=== PATIENT | female | born 1940 | race Caucasian/White ===

== ENCOUNTER 2021-10-16 12:48 | Inpatient (IN) ==
[2021-10-16 13:23] LABS: POC Calcium, Ionized 1.13 (1.16-1.32); POC Creatinine 1.7 (0.6-1.2); POC Potassium 4.4 (3.3-5.1)
--- NOTE | 2021-10-16 13:25 | Emergency Department Note ---
SOB HPI General Chief Complaint: Shortness of Breath/Dyspnea Stated Complaint: Shortness of Breath Time Seen by Provider: 10/16/21 13:01 Source: patient Mode of arrival: wheelchair Limitations: no limitations History of Present Illness HPI Narrative: Narrative: 81-year-old female presents to the emergency department complaining of right- sided well localized chest pain that began at noon today. She rates the pain as a 9 on a 0-to-10 scale. States that sharp. No prior similar. She says the pain has been getting a little better with time. Is associated with shortness of breath. There is no radiation of the pain. Patient has pulmonary fibrosis. She is not taking any oxygen at home. Patient has atrial fibrillation. Patient is on Eliquis for that. Patient was started on a Z-Jose of antibiotics yesterday. Patient was started on azithromycin yesterday. Related Data Home Medications Medication Instructions Recorded Confirmed aspirin 81 mg tablet,delayed 81 mg PO QDAY 01/13/19 09/24/21 release (Adult Aspirin Regimen) Previous Rx's Medication Instructions Recorded tiotropium 2.5 mcg-olodaterol 2.5 2 puff INHALATION Q24H #4 g 10/28/20 mcg/actuation mist for inhalation (Stiolto Respimat) montelukast 10 mg tablet See Rx Instructions .ROUTE 02/06/21 .COMPLEX #90 tablet liothyronine 5 mcg tablet See Rx Instructions .ROUTE 03/18/21 .COMPLEX #120 tab NS Handicap Placard #1 ea 04/18/21 olmesartan 40 mg tablet 40 mg PO QDAY #90 tab 07/22/21 levothyroxine 150 mcg tablet 150 mcg PO QDAY #90 tab 07/24/21 (Synthroid) albuterol sulfate 90 mcg/actuation 2 puff INHALATION QID #18 g 09/18/21 aerosol inhaler (Ventolin HFA) apixaban 5 mg tablet (Eliquis) 5 mg PO BID #60 tab 09/24/21 furosemide 20 mg tablet 40 mg PO QDAY #90 tab 09/24/21 metoprolol succinate 25 mg 12.5 mg PO .Q HS #30 tab 09/24/21 tablet,extended release 24 hr azithromycin 250 mg tablet See Rx Instructions PO .COMPLEX #6 10/15/21 (Zithromax) tab Allergies Allergy/AdvReac Type Severity Reaction Status Date / Time meperidine [From Demerol] AdvReac Severe Vomiting Verified 09/24/21 14:42 codeine AdvReac Intermediate Confusion Verified 09/24/21 14:42 wool AdvReac Mild itch Verified 09/24/21 14:42 Review of Systems ROS ROS Narrative: Narrative: Constitutional: Denies fever Eyes: Denies eye discharge ENT ED: Denies throat pain or rhinorrhea Cardiovascular: Reports chest pain (Right-sided) Respiratory: Reports shortness of breath, cough and other (States she has bronchitis. Patient has pulmonary fibrosis.) Gastrointestinal: Denies nausea, vomiting or diarrhea Genitourinary: Denies dysuria Musculoskeletal: Denies back pain Integumentary: Denies rash Neurological: Denies headache Psychiatric: Denies anxiety or depression Hematological/Lymphatic: Denies easy bleeding PFSH Narrative Patient History Narrative: Narrative: Medical/Surgical/Family History All Active Problems (Updated 10/16/21 @ 17:18 by Maurice Mendes MD) Acute congestive heart failure (Acute) Acute pneumonia (Acute) CHF (congestive heart failure) (Acute) Afib (Acute) Dyspnea (Acute) GREGORY (obstructive sleep apnea) (Chronic) Pulmonary fibrosis (Chronic) Acute bronchitis (Chronic) Deep vein thrombosis of lower extremity (Chronic) Asymptomatic hypertensive urgency (Acute) Fever (Acute) Obesity (BMI 30.0-34.9) (Chronic) Hypothyroidism, acquired (Chronic) Asthma, mild intermittent (Chronic) Hypertension, essential (Chronic) Sinusitis (Chronic) Mild congestive heart failure (Chronic) Insulin resistance syndrome (Chronic) Snoring (Chronic) Chronic rhinitis (Chronic) Secondary pulmonary arterial hypertension (Chronic) Abnormal pulmonary function test (Chronic) Asthma (Chronic) Left ventricular hypertrophy (Chronic) Secondary pulmonary hypertension (Chronic) Hyperplastic colonic polyp (Chronic) Bilateral primary osteoarthritis of knee (Chronic) Bilateral knee pain (Acute) History of varicose veins (Chronic) History of deep venous thrombosis (Chronic) Decreased circulation (Chronic) Multiple joint pain (Chronic) Chronic pulmonary congestion (Chronic) CHF (congestive heart failure) (Chronic) Encounter for long-term (current) use of medications (Chronic) Hyperlipidemia (Chronic) Skin rash (Chronic) Skin lesion (Chronic) Allergic rhinitis (Chronic) Stress (Chronic) Hypothyroidism (Chronic) Anxiety and depression (Chronic) Special screening for malignant neoplasms, colon (Chronic) Weight gain (Chronic) Multiple nevi (Chronic) Left shoulder pain (Chronic) Fatigue (Chronic) Screening for malignant neoplasm of cervix (Chronic) Bone spur (Chronic) Keratosis (Chronic) History of bronchitis (Chronic ~2017) Deep vein thrombosis (DVT) of right lower extremity (Chronic ~05/2017) Interstitial lung disease (Acute) Insomnia, unspecified (Acute) Right lower quadrant pain (Acute) Hypertension, essential (Acute) Constipation (Acute) Stress (Acute) Hyperlipidemia (Acute) Lumbar radiculopathy (Acute) Stage III chronic kidney disease (Acute) Skin mole (Acute) Hypersomnia (Chronic) Nocturnal hypoxia (Chronic) Elevated antinuclear antibody (KOTA) level (Acute) Fluid retention (Acute) Medical History Abnormal pulmonary function test Acute bronchitis Allergic rhinitis Anxiety and depression Asthma Asthma, mild intermittent Bilateral knee pain Bilateral primary osteoarthritis of knee Bone spur CHF (congestive heart failure) Chronic pulmonary congestion Chronic rhinitis Decreased circulation Deep vein thrombosis (DVT) of right lower extremity (~05/2017) Deep vein thrombosis of lower extremity Elevated antinuclear antibody (KOTA) level Encounter for long-term (current) use of medications Fatigue History of bronchitis (~2017) History of deep venous thrombosis History of varicose veins Hyperlipidemia Hyperplastic colonic polyp Hypersomnia Hypertension, essential Hypothyroidism Hypothyroidism, acquired Insulin resistance syndrome Interstitial lung disease Keratosis Left shoulder pain Left ventricular hypertrophy Mild congestive heart failure Multiple joint pain Multiple nevi Nocturnal hypoxia Obesity (BMI 30.0-34.9) GREGORY (obstructive sleep apnea) Screening for malignant neoplasm of cervix Secondary pulmonary arterial hypertension Secondary pulmonary hypertension Sinusitis Skin lesion Skin rash Snoring Special screening for malignant neoplasms, colon Stress Weight gain Surgical History History of colonoscopy (03/31/18) performed by Dr. Frye History of skin cancer (~07/2013) on face History of tonsillectomy Family History Mother , Age 86 Liver cancer Daughter Asthma Unknown Hypertension Father , Age 95 No problems noted. Social History Smoking Status: Former smoker Substance Use: does not use Exam Narrative Narrative: Narrative: Patient with pulse ox of 80 on room air. On 4 L she goes to 94%. Scattered rhonchi throughout the lungs compatible with pulmonary fibrosis or other disease. General Limitations: no limitations General appearance: Present alert and in distress Head Head: Present atraumatic and normocephalic Eye Eye: Present normal appearance and EOMI ENT ENT: Present normal oropharynx and mucous membranes moist Neck Neck: Present normal inspection and trachea midline Respiratory Respiratory: Present normal lung sounds bilaterally and respiratory distress; Absent wheezes Cardiovascular Cardiovascular: Present regular rate and normal rhythm Adbominal Abdominal: Present soft; Absent tenderness Extremities Extremities: Present normal inspection Back Back: Present normal inspection; Absent tenderness Neurological Neurological: Present alert and oriented X3 Psychiatric Psychiatric: Present normal affect and normal mood Skin Skin: Present warm (WNL) and dry Course Vital Signs Vital signs: Vital Signs Temperature 97.2 F 10/16/21 12:48 Pulse Rate 122 H 10/16/21 12:48 Respiratory Rate 26 H 10/16/21 12:48 Blood Pressure 109/70 10/16/21 12:48 Pulse Oximetry (%) 83 L 10/16/21 12:48 Temperature 97.2 F 10/16/21 12:48 Pulse Rate 92 H 10/16/21 16:57 Respiratory Rate 22 10/16/21 16:57 Blood Pressure 104/66 10/16/21 16:16 Pulse Oximetry (%) 94 10/16/21 16:57 [facility] MDM Narrative Medical decision making narrative: Narrative: 81-year-old female presents emerged department with a right-sided chest pain. Also complains of having bronchitis and was started on azithromycin yesterday for for that. Has underlying pulmonary fibrosis. Differential diagnosis includes pneumonia, congestive heart failure, pleurisy, bronchitis, influenza, COVID, other COVID test was negative.White count was elevated 18.5 with 90 neutrophils and 4 lymphs. Hemoglobin was normal at 12.9. VBG was unremarkable. Sodium was mildly low at 132 with a normal potassium 4.4 normal chloride of 97 and a normal bicarb of 26. BUN was elevated at 40 with a elevated creatinine of 1.7. Both these numbers were elevated from 4 weeks ago. Glucose was elevated at 135 and the BNP was markedly elevated at 1771. chest x-ray: IMPRESSION: 1. Cardiomegaly 2. Bilateral parenchymal infiltrates. Appearance is most consistent with congestive heart failure superimposed upon chronic underlying lung disease Department course patient was given Lasix 40 mg IV to treat her congestive heart failure as seen on chest x-ray and confirm with BNP. Patient had significant urinary output after this. Chest x-ray is also suspicious for possible pneumonia. Patient has a high white count of 18,000 and therefore I gave her ceftriaxone 1 g IV. I also give the patient 500 mg of azithromycin though I did not need to since she was already on azithromycin. The drug was already administered by the time I realize this. Today would be day 2 of azithromycin. Patient was taken off the oxygen to see how she would do and her pulse ox dropped down to 80% on room air. She was placed back on oxygen and will need to be admitted to the hospital for further care. Dr. Palma and I discussed the case. He will come to the ER to evaluate patient for admission. Lab Data Result diagrams: 10/16/21 13:25 Labs: Lab Results 10/16/21 10/16/21 10/16/21 Range/Units 13:19 13:20 13:25 WBC 18.5 H (4.5-11.0) K/mcL RBC 4.01 (3.59-5.38) M/mcL Hgb 12.9 (11.2-15.7) g/dL Hct 39.9 (34.1-44.9) % POC Hct 40.0 (36-48) MCV 99.5 (80.0-100.0) fL MCH 32.2 (26.0-34.0) pg MCHC 32.3 (31.0-36.0) g/dL RDW 14.2 (11.5-14.5) % Plt Count 206 (140-440) K/mcL MPV 10.7 H (7.4-10.4) fL Neut % (Auto) 89.7 H (38.0-78.0) % Lymph % (Auto) 3.7 L (15.5-49.0) % Trego % (Auto) 6.3 (1.0-12.0) % Eos % (Auto) 0.1 (0.0-7.0) % Baso % (Auto) 0.2 (0.0-2.0) % Lymph # (Auto) 0.69 L (1.50-4.80) K/mcL Trego # (Auto) 1.16 H (0.10-0.90) K/mcL Eos # (Auto) 0.02 (0.00-0.70) K/mcL Baso # (Auto) 0.04 (0.00-0.30) K/mcL Absolute Neutrophils 16.56 H (1.80-8.00) K/mcL POC VBG pH 7.41 (7.32-7.42) POC VBG pCO2 at Temp 41.7 (41-51) POC VBG pO2 35 (25-40) POC VBG HCO3 26.3 (24-28) POC VBG Total CO2 28.0 (25-29) POC Venous O2 Sat 67.0 (40-70) POC VBG Base Excess 2.0 (-2-2) POC Sodium 132 L (133-145) POC Potassium 4.4 (3.3-5.1) POC Chloride 97 (96-108) POC Total CO2 26.0 (22-30) POC BUN 40 H (6-20) POC Creatinine 1.7 H (0.6-1.2) POC Glucose 135 H (70-105) POC Venous Lactate 1.7 (0.5-2) POC WB Ioniz Calcium 1.13 L (1.16-1.32) Troponin T (<0.03) ng/mL NT-Pro-B Natriuret Pep (<450.0) pg/mL 10/16/21 10/16/21 Range/Units 13:25 13:25 WBC (4.5-11.0) K/mcL RBC (3.59-5.38) M/mcL Hgb (11.2-15.7) g/dL Hct (34.1-44.9) % POC Hct (36-48) MCV (80.0-100.0) fL MCH (26.0-34.0) pg MCHC (31.0-36.0) g/dL RDW (11.5-14.5) % Plt Count (140-440) K/mcL MPV (7.4-10.4) fL Neut % (Auto) (38.0-78.0) % Lymph % (Auto) (15.5-49.0) % Trego % (Auto) (1.0-12.0) % Eos % (Auto) (0.0-7.0) % Baso % (Auto) (0.0-2.0) % Lymph # (Auto) (1.50-4.80) K/mcL Trego # (Auto) (0.10-0.90) K/mcL Eos # (Auto) (0.00-0.70) K/mcL Baso # (Auto) (0.00-0.30) K/mcL Absolute Neutrophils (1.80-8.00) K/mcL POC VBG pH (7.32-7.42) POC VBG pCO2 at Temp (41-51) POC VBG pO2 (25-40) POC VBG HCO3 (24-28) POC VBG Total CO2 (25-29) POC Venous O2 Sat (40-70) POC VBG Base Excess (-2-2) POC Sodium (133-145) POC Potassium (3.3-5.1) POC Chloride (96-108) POC Total CO2 (22-30) POC BUN (6-20) POC Creatinine (0.6-1.2) POC Glucose (70-105) POC Venous Lactate (0.5-2) POC WB Ioniz Calcium (1.16-1.32) Troponin T < 0.01 (<0.03) ng/mL NT-Pro-B Natriuret Pep 1771.0 H (<450.0) pg/mL ED POC Tests ED POC Tests: BERTA - SARS Antigen Negative Discharge Plan Patient/Caregiver Discharge Instructions Pt seen by [employer]/PA only: No Clinical Impression: Acute pneumonia Acute congestive heart failure Qualifiers: Heart failure type: unspecified Qualified Code(s): I50.9 - Heart failure, unspecified Patient Disposition: Xfer As Inpt ([facility]) Condition: Serious Follow up with: Lissette Rivera ARNP [Primary Care Provider] - Prescriptions: No Action Stiolto Respimat 2.5-2.5 mcg/actuation mist 2 puff inhalation Q24H Qty: 4 6RF liothyronine 5 mcg tablet See Rx Instructions .ROUTE .COMPLEX Qty: 120 2RF Dose Instruction: TAKE 2 TABLETS BY MOUTH ON WEDNESDAY, WEDNESDAY AND WEDNESDAY AND 1 ONCE DAILY ON ALL OTHER DAYS Rx Instructions: TAKE 2 TABLETS BY MOUTH ON WEDNESDAY, WEDNESDAY AND WEDNESDAY AND 1 ONCE DAILY ON ALL OTHER DAYS levothyroxine [Synthroid] 150 mcg tablet 150 mcg PO QDAY Qty: 90 0RF albuterol sulfate [Ventolin HFA] 90 mcg/actuation HFA aerosol inhaler 2 puff INHALATION QID Qty: 18 6RF azithromycin [Zithromax] 250 mg tablet See Rx Instructions PO .COMPLEX Qty: 6 0RF Rx Instructions: For 250 mg dose pack: take 500 mg today (day 1), then 250 mg for 4 days (days 2-5) PO aspirin [Adult Aspirin Regimen] 81 mg tablet,delayed release (DR/EC) 81 mg PO QDAY 0RF (DME) Handicap Placard See Rx Instructions .Route .MEDSUPPLY Qty: 1 0RF Rx Instructions: Patient unable to walk more than 6 feet without significant difficulties breathing due to medical conditions. montelukast 10 mg tablet See Rx Instructions .ROUTE .COMPLEX Qty: 90 4RF Dose Instruction: Take 1 tablet by mouth once daily Rx Instructions: Take 1 tablet by mouth once daily olmesartan 40 mg tablet 40 mg PO QDAY Qty: 90 3RF Eliquis 5 mg tablet 5 mg PO BID Qty: 60 3RF furosemide 20 mg tablet 40 mg PO QDAY Qty: 90 4RF Rx Instructions: increase for a week. metoprolol succinate 25 mg tablet extended release 24 hr 12.5 mg PO .Q HS Qty: 30 1RF Eliquis 5 mg tablet 0RF
[2021-10-16] MEDS ORDERED: HYDROcodone/APAP 5/325MG TABLET PO ONE ×2 (14:22→14:35)
--- NOTE | 2021-10-16 14:31 | XRay Report ---
INDICATION: right sided pain. Pulm fibrosis TECHNIQUE: PA and lateral upright chest x-ray COMPARISON: Previous chest x-rays dated 09/24/2021, 09/16/2021. Previous CT scan dated 10/28/2020 FINDINGS: Lungs: The patient has a history of pulmonary fibrosis. There are bilateral infiltrates with bibasilar predominance. Findings are consistent with pulmonary edema superimposed upon underlying lung disease. Pneumonia is possible. Heart, vascular: There is cardiomegaly, unchanged Mediastinum, altagracia: No mediastinal widening. No hilar mass Pleura:No pleural fluid. No pleural-based mass or calcification Thoracic spine, ribs: No thoracic compression fracture. Ribs are negative. No fracture. No lytic lesion IMPRESSION: 1. Cardiomegaly 2. Bilateral parenchymal infiltrates. Appearance is most consistent with congestive heart failure superimposed upon chronic underlying lung disease Interpreted and Authenticated by: Aniceto Mahajan 10/16/21
[2021-10-16] MEDS ORDERED: FUROSEMIDE 40 MG/4 ML VIAL IV ONE (14:39)
[2021-10-16 15:06] LABS: Basophils # (Auto) 0.04 K/mcL (0.00-0.30); Basophils % (Auto) 0.2 % (0.0-2.0); Eosinophils # (Auto) 0.02 K/mcL (0.00-0.70); Eosinophils % (Auto) 0.1 % (0.0-7.0); Hematocrit 39.9 % (34.1-44.9); Hemoglobin 12.9 g/dL (11.2-15.7); Lymphocytes # (Auto) 0.69 K/mcL (1.50-4.80); Lymphocytes % (Auto) 3.7 % (15.5-49.0); Mean Cell Volume 99.5 fL (80.0-100.0); Mean Corpuscular HGB Conc 32.3 g/dL (31.0-36.0); Mean Platelet Volume 10.7 fL (7.4-10.4); Monocytes # (Auto) 1.16 K/mcL (0.10-0.90); Monocytes % (Auto) 6.3 % (1.0-12.0); Neutrophils % (Auto) 89.7 % (38.0-78.0); Platelet Count 206 K/mcL (140-440); RBC 4.01 M/mcL (3.59-5.38); Red Cell Distribution Width 14.2 % (11.5-14.5); WBC 18.5 K/mcL (4.5-11.0)
[2021-10-16] MEDS ORDERED: cefTRIAXone 1 GM VIAL IV ONE (15:46)
[2021-10-16] MEDS ORDERED: AZITHROMYCIN 500 MG in DEXTROSE 5% IN WATER 250 ML IV ONE (15:46)
--- NOTE | 2021-10-16 17:22 | Internal Med History&Physical ---
HPI History of Present Illness Patient information: Note initiated : 10/16/21 at 5:13 pm Service Date, if different from initiated Date: [] Patient: George Ma 81 y/o F admitted on for Shortness of Breath. Chief Complaint: [] History of present illness: Ms. Ma is a 81 year old F Presents the ED with shortness of breath. Patient says she has been dealing with bronchitis off and on for the past month. She says that she went to bed feeling fine and woke up today with a right side stabbing chest pain made worse by deep breathing and coughing. She says she gets a cough whenever she has a bronchitis but does not have a chronic cough. He says she has a cough productive of yellow phlegm. She has dyspnea on exertion. She says she sleeps in recliner because she wakes up often in her bed and she also said she does get short of breath when she lays in her bed but she says this has not changed lately. Rapid COVID was negative in the ED. Chest x-ray is read as suspect to be edema with possible underlying pneumonia. She did have a leukocytosis of 18,000, afebrile vital signs but was tachycardic and tachypneic. Oxygen saturation of 83% on room air. Labs included a hyponatremia and elevated BUN and creatinine. Her proBNP was also elevated at 1770. Last echo done in early 2020 showed normal EF with some diastolic dysfunction. Review of Systems: Pertinent positives as above. Denies headache/fever/chills/nausea/vomiting/ abdominal pain/diarrhea. Remaining 10 point review of system reviewed negative PFSH PFSH All Active Problems (Updated 10/16/21 @ 17:18 by Maurice Mendes MD) Acute congestive heart failure (Acute) Acute pneumonia (Acute) CHF (congestive heart failure) (Acute) Afib (Acute) Dyspnea (Acute) GREGORY (obstructive sleep apnea) (Chronic) Pulmonary fibrosis (Chronic) Acute bronchitis (Chronic) Deep vein thrombosis of lower extremity (Chronic) Asymptomatic hypertensive urgency (Acute) Fever (Acute) Obesity (BMI 30.0-34.9) (Chronic) Hypothyroidism, acquired (Chronic) Asthma, mild intermittent (Chronic) Hypertension, essential (Chronic) Sinusitis (Chronic) Mild congestive heart failure (Chronic) Insulin resistance syndrome (Chronic) Snoring (Chronic) Chronic rhinitis (Chronic) Secondary pulmonary arterial hypertension (Chronic) Abnormal pulmonary function test (Chronic) Asthma (Chronic) Left ventricular hypertrophy (Chronic) Secondary pulmonary hypertension (Chronic) Hyperplastic colonic polyp (Chronic) Bilateral primary osteoarthritis of knee (Chronic) Bilateral knee pain (Acute) History of varicose veins (Chronic) History of deep venous thrombosis (Chronic) Decreased circulation (Chronic) Multiple joint pain (Chronic) Chronic pulmonary congestion (Chronic) CHF (congestive heart failure) (Chronic) Encounter for long-term (current) use of medications (Chronic) Hyperlipidemia (Chronic) Skin rash (Chronic) Skin lesion (Chronic) Allergic rhinitis (Chronic) Stress (Chronic) Hypothyroidism (Chronic) Anxiety and depression (Chronic) Special screening for malignant neoplasms, colon (Chronic) Weight gain (Chronic) Multiple nevi (Chronic) Left shoulder pain (Chronic) Fatigue (Chronic) Screening for malignant neoplasm of cervix (Chronic) Bone spur (Chronic) Keratosis (Chronic) History of bronchitis (Chronic ~2017) Deep vein thrombosis (DVT) of right lower extremity (Chronic ~05/2017) Interstitial lung disease (Acute) Insomnia, unspecified (Acute) Right lower quadrant pain (Acute) Hypertension, essential (Acute) Constipation (Acute) Stress (Acute) Hyperlipidemia (Acute) Lumbar radiculopathy (Acute) Stage III chronic kidney disease (Acute) Skin mole (Acute) Hypersomnia (Chronic) Nocturnal hypoxia (Chronic) Elevated antinuclear antibody (KOTA) level (Acute) Fluid retention (Acute) Medical History Abnormal pulmonary function test Acute bronchitis Allergic rhinitis Anxiety and depression Asthma Asthma, mild intermittent Bilateral knee pain Bilateral primary osteoarthritis of knee Bone spur CHF (congestive heart failure) Chronic pulmonary congestion Chronic rhinitis Decreased circulation Deep vein thrombosis (DVT) of right lower extremity (~05/2017) Deep vein thrombosis of lower extremity Elevated antinuclear antibody (KOTA) level Encounter for long-term (current) use of medications Fatigue History of bronchitis (~2017) History of deep venous thrombosis History of varicose veins Hyperlipidemia Hyperplastic colonic polyp Hypersomnia Hypertension, essential Hypothyroidism Hypothyroidism, acquired Insulin resistance syndrome Interstitial lung disease Keratosis Left shoulder pain Left ventricular hypertrophy Mild congestive heart failure Multiple joint pain Multiple nevi Nocturnal hypoxia Obesity (BMI 30.0-34.9) GREGORY (obstructive sleep apnea) Screening for malignant neoplasm of cervix Secondary pulmonary arterial hypertension Secondary pulmonary hypertension Sinusitis Skin lesion Skin rash Snoring Special screening for malignant neoplasms, colon Stress Weight gain Surgical History History of colonoscopy (03/31/18) performed by Dr. Frye History of skin cancer (~07/2013) on face History of tonsillectomy Family History Mother , Age 86 Liver cancer Daughter Asthma Unknown Hypertension Father , Age 95 No problems noted. Social History occupational status: retired smoking status: Former smoker substance use type: does not use MEDS/ALLERGIES Home Medications and Allergies Home Medications Medication Instructions Recorded Confirmed Type aspirin 81 mg tablet,delayed 81 mg PO QDAY 01/13/19 09/24/21 History release (Adult Aspirin Regimen) tiotropium 2.5 mcg-olodaterol 2.5 2 puff INHALATION Q24H #4 g 10/28/20 09/24/21 Rx mcg/actuation mist for inhalation (Stiolto Respimat) montelukast 10 mg tablet See Rx Instructions .ROUTE 02/06/21 10/16/21 Rx .COMPLEX #90 tablet liothyronine 5 mcg tablet See Rx Instructions .ROUTE 03/18/21 09/24/21 Rx .COMPLEX #120 tab NS Handicap Placard #1 ea 04/18/21 09/24/21 Rx olmesartan 40 mg tablet 40 mg PO QDAY #90 tab 07/22/21 09/24/21 Rx levothyroxine 150 mcg tablet 150 mcg PO QDAY #90 tab 07/24/21 10/16/21 Rx (Synthroid) albuterol sulfate 90 mcg/actuation 2 puff INHALATION QID #18 g 09/18/21 10/16/21 Rx aerosol inhaler (Ventolin HFA) apixaban 5 mg tablet (Eliquis) 5 mg PO BID #60 tab 09/24/21 09/24/21 Rx furosemide 20 mg tablet 40 mg PO QDAY #90 tab 09/24/21 09/24/21 Rx metoprolol succinate 25 mg 12.5 mg PO .Q HS #30 tab 09/24/21 09/24/21 Rx tablet,extended release 24 hr azithromycin 250 mg tablet See Rx Instructions PO .COMPLEX #6 10/15/21 10/16/21 Rx (Zithromax) tab Allergies Allergy/AdvReac Type Severity Reaction Status Date / Time meperidine [From Demerol] AdvReac Severe Vomiting Verified 09/24/21 14:42 codeine AdvReac Intermediate Confusion Verified 09/24/21 14:42 wool AdvReac Mild itch Verified 09/24/21 14:42 EXAM Constitutional Vitals: Temp Pulse Resp BP Pulse Ox 97.2 F 92 H 22 104/66 94 10/16/21 12:48 10/16/21 16:57 10/16/21 16:57 10/16/21 16:16 10/16/21 16:57 Exam: General: Alert, Awake, No acute Distress obese Eyes/N/T: EOMI, PERRL, Head/Neck: neck supple, normocephalic atraumatic CV: irreg irreg, No murmurs, normal s1/s2 Pulm: mild rhonchi/wheezing b/l, Abd: soft, nontender, +BS x4 Ext: no clubbing/cyanosis, trace- 1+ b/l LE edema Neuro: Alert, no focal deficits, moves all extremities, CN 2-12 grossly intact, symmetrical strength b/l upper/lower, sensations intact b/l upper/lower Skin: warm/dry DATA Data Completed and Pending Labs: Labs from last 24 hours 10/16/21 10/16/21 10/16/21 13:25 13:25 13:25 WBC 18.5 H RBC 4.01 Hgb 12.9 Hct 39.9 POC Hct MCV 99.5 MCH 32.2 MCHC 32.3 RDW 14.2 Plt Count 206 MPV 10.7 H Neut % (Auto) 89.7 H Lymph % (Auto) 3.7 L [place] % (Auto) 6.3 Eos % (Auto) 0.1 Baso % (Auto) 0.2 Lymph # (Auto) 0.69 L [place] # (Auto) 1.16 H Eos # (Auto) 0.02 Baso # (Auto) 0.04 Absolute Neutrophils 16.56 H POC VBG pH POC VBG pCO2 at Temp POC VBG pO2 POC VBG HCO3 POC VBG Total CO2 POC Venous O2 Sat POC VBG Base Excess POC Sodium POC Potassium POC Chloride POC Total CO2 POC BUN POC Creatinine POC Glucose POC Venous Lactate POC WB Ioniz Calcium Troponin T < 0.01 NT-Pro-B Natriuret Pep 1771.0 H 10/16/21 10/16/21 13:20 13:19 WBC RBC Hgb Hct POC Hct 40.0 MCV MCH MCHC RDW Plt Count MPV Neut % (Auto) Lymph % (Auto) [place] % (Auto) Eos % (Auto) Baso % (Auto) Lymph # (Auto) [place] # (Auto) Eos # (Auto) Baso # (Auto) Absolute Neutrophils POC VBG pH 7.41 POC VBG pCO2 at Temp 41.7 POC VBG pO2 35 POC VBG HCO3 26.3 POC VBG Total CO2 28.0 POC Venous O2 Sat 67.0 POC VBG Base Excess 2.0 POC Sodium 132 L POC Potassium 4.4 POC Chloride 97 POC Total CO2 26.0 POC BUN 40 H POC Creatinine 1.7 H POC Glucose 135 H POC Venous Lactate 1.7 POC WB Ioniz Calcium 1.13 L Troponin T NT-Pro-B Natriuret Pep A/P Narrative A/P Narrative: A: *Acute hypoxic respiratory failure: -on *PNA: - *suspected acute on chronic diastolic CHF: *TAM on CKD IIIb: *Pulmonary fibrosis: *GREGORY on CPAP: *Permanent AFib: *Hyponatremia: *Obesity: BMI 38 *MSK chest pain: 2/2 pna *Hypothyroidism P: -Abx, pending SC -O2 supp, wean -IS/Acapella -IV lasix -echo -check pct/man diff -f/u renal fxn -hold home ARB for tam -home cpap -cont home asa/eliquis/BB - -PT/OT -ppx: Eliqucece DNR Time Spent With Patient Time: Total time spent is greater than 50% in coordination of care (as documented) at patient's floor/unit and/or counseling patient: Total time spent with greater than 50% in coordination of care (as documented) at patient's floor/unit and/or counseling patient:: Greater than 70 minutes
[2021-10-16 18:28] LABS: C-Reactive Protein 23.1 mg/dL (0.03-0.80)
[2021-10-16 18:29] LABS: Albumin 3.7 gm/dL (3.2-5.2); Bilirubin,Direct 0.8 mg/dL (<0.3); Bilirubin,Total 1.4 mg/dL (0.1-1.0); Globulin 4.4 gm/dL (2.2-3.7)
[2021-10-16 18:41] LABS: Band Neutrophils % 6 % (0-10); Basophils % (Manual) 1 % (0-2); Lymphocytes % 5 % (15-49); Monocytes % (Manual) 10 % (1-12); Platelet Estimate NORMAL (Normal); RBC Morphology NORMAL (Normal); Segmented Neutrophils % 78 % (38-78)
[2021-10-16] MEDS ORDERED: ACETAMINOPHEN 325 MG TABLET PO PRN (19:26)
[2021-10-16] MEDS ORDERED: SENNOSIDES 1 TABLET PO PRN (19:26)
[2021-10-16] MEDS ORDERED: POLYETHYLENE GLYCOL 3350 17 GM PACKET PO PRN (19:26)
[2021-10-16] MEDS ORDERED: IPRATROPIUM/ALBUTEROL 3 ML AMPUL.NEB NEB PRN (19:26)
[2021-10-16] MEDS ORDERED: MAGNESIUM SULFATE 2 GM/50 ML BAG IV PRN (19:26)
[2021-10-16] MEDS ORDERED: POTASSIUM CHLORIDE 20 MEQ TABLET PO PRN ×2 (19:26)
[2021-10-16] MEDS ORDERED: POTASSIUM CHLORIDE 40 MEQ in DEXTROSE 5% IN WATER 500 ML IV PRN (19:26)
[2021-10-16] MEDS ORDERED: ONDANSETRON 4 MG/2 ML VIAL IV PRN (19:26)
[2021-10-16] MEDS ORDERED: METOPROLOL TARTRATE 5 MG/5 ML VIAL IV PRN (19:26)
[2021-10-16] MEDS ORDERED: METOPROLOL SUCCINATE 25 MG TAB.XL.24H PO SCH (19:30)
[2021-10-16] MEDS: DOCUSATE SODIUM 100 MG CAPSULE PO SCH (21:01)
[2021-10-16] MEDS: APIXABAN 5 MG TABLET PO SCH (21:02)
[2021-10-16] MEDS: 0.9 % SODIUM CHLORIDE 10 ML SYRINGE IV SCH (21:05)
[2021-10-16] MEDS ORDERED: REMDESIVIR 200 MG in 0.9 % SODIUM CHLORIDE 250 ML IV ONE (23:03)
[2021-10-16] MEDS ORDERED: DEXAMETHASONE 0.5 MG/5 ML ORAL.SOL PO SCH (23:15)
[2021-10-16] MEDS ORDERED: DEXAMETHASONE 10 MG/ML VIAL ONE (23:33)
[2021-10-16] MEDS ORDERED: DEXAMETHASONE 4 MG TABLET PO ONE (23:37)
[2021-10-16] MEDS: BENZONATATE 100 MG CAPSULE PO PRN (23:38)
[2021-10-16] MEDS: DEXAMETHASONE 4 MG TABLET PO SCH (23:41)
[2021-10-17 03:41] LABS: Appearance,Urine Cloudy (Clear); Bacteria,Urine FEW /hpf (0); Bilirubin,Urine Negative (Negative); Color,Urine Yellow; Culture Indicated,Urine No; Glucose,Urine (UA) Negative (Negative); Ketones,Urine Negative (Negative); Leukocyte Esterase,Urine Trace /uL (Negative); Mucus,Urine FEW /hpf; Nitrate,Urine Negative (Negative); Urine Blood Small ery/mcL (Negative); Urine Hyaline Cast 21 /lph (0-2); Urine RBC 1 /hpf (0-3); Urine Squamous Epithelial Cell 10 /hpf (0-4); Urine WBC 6 /hpf (0-4); Urobilinogen,Urine Normal
[2021-10-17] MEDS: 0.9 % SODIUM CHLORIDE 10 ML SYRINGE IV SCH ×3 (05:25→22:51)
--- NOTE | 2021-10-17 07:07 | EKG ---
[facility] Test Date: 2021-10-16 Pat Name: George Ma Department: ED Room: Gender: Female Documentation Manager: LR : 1940 Requested By: Maurice Mendes Order Number: [id number] Reading MD: Brian Graves Measurements Intervals Bailey Rate: 111 P: [place]: QRS: 76 QRSD: 99 T: -24 QT: 308 QTc: 419 Interpretive Statements Atrial fibrillation Ventricular premature complex Anteroseptal infarct, age indeterminate Electronically Signed On 10-17-2021 7:07:27 PDT by Brian Graves /store/[email or web address]/[id number]/[id number].pdf
[2021-10-17 07:08] LABS: Basophils # (Auto) 0.03 K/mcL (0.00-0.30); Basophils % (Auto) 0.2 % (0.0-2.0); Eosinophils # (Auto) 0.01 K/mcL (0.00-0.70); Eosinophils % (Auto) 0.1 % (0.0-7.0); Hematocrit 39.4 % (34.1-44.9); Hemoglobin 12.1 g/dL (11.2-15.7); Lymphocytes # (Auto) 0.51 K/mcL (1.50-4.80); Lymphocytes % (Auto) 3.1 % (15.5-49.0); Mean Cell Volume 100.8 fL (80.0-100.0); Mean Corpuscular HGB Conc 30.7 g/dL (31.0-36.0); Mean Platelet Volume 10.2 fL (7.4-10.4); Monocytes # (Auto) 0.39 K/mcL (0.10-0.90); Monocytes % (Auto) 2.4 % (1.0-12.0); Neutrophils % (Auto) 94.2 % (38.0-78.0); Platelet Count 196 K/mcL (140-440); RBC 3.91 M/mcL (3.59-5.38); Red Cell Distribution Width 14.4 % (11.5-14.5); WBC 16.3 K/mcL (4.5-11.0)
--- NOTE | 2021-10-17 07:22 | Internal Med Progress Note ---
SUBJECTIVE Subjective Patient information: Note initiated : 10/17/21 at 7:16 am Service Date, if different from initiated Date: [] Patient: George Ma 81 y/o F admitted on 10/16/21 for Shortness of Breath. Chief Complaint: [] Interval history: History of present illness: Ms. Ma is a 81 year old F Presents the ED with shortness of breath. Patient says she has been dealing with bronchitis off and on for the past month. She says that she went to bed feeling fine and woke up today with a right side stabbing chest pain made worse by deep breathing and coughing. She says she gets a cough whenever she has a bronchitis but does not have a chronic cough. He says she has a cough productive of yellow phlegm. She has dyspnea on exertion. She says she sleeps in recliner because she wakes up often in her bed and she also said she does get short of breath when she lays in her bed but she says this has not changed lately. Rapid COVID was negative in the ED. Chest x-ray is read as suspect to be edema with possible underlying pneumonia. She did have a leukocytosis of 18,000, afebrile vital signs but was tachycardic and tachypneic. Oxygen saturation of 83% on room air. Labs included a hyponatremia and elevated BUN and creatinine. Her proBNP was also elevated at 1770. Last echo done in early 2020 showed normal EF with some diastolic dysfunction. 10/17 Patient has mild cough and shortness of breath. Right side lateral chest pain improving. Patient has dark urine and poor urine output per nurse. BUN and creatinine elevated today. Potassium and sodium abnormal. IV fluid hydration follow-up labs this afternoon. Monitor CRP. Continue dexamethasone. Remdesivir held for renal function. Urine studies. Review of Systems: denies headache/fever/chills/nausea/vomiting/chest or abdominal pain/diarrhea. Otherwise see above. Constitutional Vitals: Vital Signs Temp Pulse Resp BP Pulse Ox 97.3 F 84 18 117/83 94 10/17/21 04:32 10/17/21 04:32 10/17/21 04:32 10/17/21 04:32 10/17/21 04:32 Period Temp Pulse Resp BP Sys/Figueredo Pulse Ox Last 24 Hr 97.2 F-98.5 F 84-122 18-42 87-156/56-142 83-95 Intake and Output 10/16/21 10/17/21 10/17/21 21:59 05:59 13:59 Intake Total 250 790 Output Total 150 Balance 250 640 Weight 101.264 kg Intake & Output: Intake & Output 10/16/21 10/17/21 10/17/21 21:59 05:59 13:59 Intake Total 250 790 Output Total 150 Balance 250 640 Weight 101.264 kg Intake: IV 250 250 Zithromax 500 mg In Dextrose 5% 250 in Water 250 ml @ 250 mls/hr IV Q24H ONE Rx#:[id number] Veklury 200 mg In Sodium 250 Chloride 0.9% 250 ml @ 500 mls/ hr IV ONCE ONE Rx#:[id number] Oral 200 GI Tube Flush 340 Output: Void Amount 150 Other: Urine Appearance Cloudy Urine Color Straw Urine Odor Strong # Voids 1 Exam: General: Alert, Awake, No acute Distress, obese Eyes/N/T: EOMI, Head/Neck: neck supple, CV: irreg irreg, No murmurs, Pulm: rhonchi b/l, Abd: soft, nontender, +BS x4 Ext: no clubbing/cyanosis, trace b/l LE edema Neuro: Alert, no focal deficits, moves all extremities, Skin: warm/dry OBJ DATA Labs CBC & Chem 7: 10/17/21 06:15 10/17/21 06:15 Labs: Abnormal Lab Results 10/17/21 10/17/21 10/16/21 06:15 02:38 13:25 WBC 16.3 H MCV 100.8 H MCHC 30.7 L MPV Neut % (Auto) 94.2 H Lymph % (Auto) 3.1 L Lymph # (Auto) 0.51 L [place] # (Auto) Lymphocytes % Absolute Neutrophils 15.35 H POC Sodium POC BUN POC Creatinine POC Glucose POC WB Ioniz Calcium Total Bilirubin Direct Bilirubin Alkaline Phosphatase C-Reactive Protein NT-Pro-B Natriuret Pep Globulin Procalcitonin 0.17 H Urine Appearance Cloudy A Urine Protein 30 mg/dl A Urine Occult Blood Small A Ur Leukocyte Esterase Trace A Urine WBC 6 H Ur Squamous Epith Cells 10 H Urine Bacteria Few A Hyaline Casts 21 H Urine Mucus Few A 10/16/21 10/16/21 10/16/21 13:25 13:25 13:25 WBC MCV MCHC MPV Neut % (Auto) Lymph % (Auto) Lymph # (Auto) [place] # (Auto) Lymphocytes % 5 L Absolute Neutrophils POC Sodium POC BUN POC Creatinine POC Glucose POC WB Ioniz Calcium Total Bilirubin 1.4 H Direct Bilirubin 0.8 H Alkaline Phosphatase 124 H C-Reactive Protein 23.10 H NT-Pro-B Natriuret Pep 1771.0 H Globulin 4.4 H Procalcitonin Urine Appearance Urine Protein Urine Occult Blood Ur Leukocyte Esterase Urine WBC Ur Squamous Epith Cells Urine Bacteria Hyaline Casts Urine Mucus 10/16/21 10/16/21 13:25 13:19 WBC 18.5 H MCV MCHC MPV 10.7 H Neut % (Auto) 89.7 H Lymph % (Auto) 3.7 L Lymph # (Auto) 0.69 L [place] # (Auto) 1.16 H Lymphocytes % Absolute Neutrophils 16.56 H POC Sodium 132 L POC BUN 40 H POC Creatinine 1.7 H POC Glucose 135 H POC WB Ioniz Calcium 1.13 L Total Bilirubin Direct Bilirubin Alkaline Phosphatase C-Reactive Protein NT-Pro-B Natriuret Pep Globulin Procalcitonin Urine Appearance Urine Protein Urine Occult Blood Ur Leukocyte Esterase Urine WBC Ur Squamous Epith Cells Urine Bacteria Hyaline Casts Urine Mucus Meds: Medications Acetaminophen (Acetaminophen 325 Mg Tablet) 650 mg PO Q6HP PRN; Protocol PRN Reason: Per Pain Protocol/Fever > 101 Last Admin: 10/16/21 21:00 Dose: 650 mg Documented by: Albuterol/Ipratropium (Ipratropium/Albuterol 3 Ml Ampul.Neb) 3 ml NEB Q4HP PRN PRN Reason: Shortness Of Breath Apixaban (Apixaban 5 Mg Tablet) 5 mg PO BID [facility] Last Admin: 10/16/21 21:02 Dose: 5 mg Documented by: Aspirin (Aspirin 81 Mg Tab.Chew) 81 mg PO DAILY [facility] Benzonatate (Benzonatate 100 Mg Capsule) 100 mg PO TIDP PRN PRN Reason: Cough Last Admin: 10/16/21 23:38 Dose: 100 mg Documented by: Dexamethasone (Dexamethasone 4 Mg Tablet) 6 mg PO DAILY [facility] Last Admin: 10/16/21 23:41 Dose: 6 mg Documented by: Docusate Sodium (Docusate Sodium 100 Mg Capsule) 100 mg PO BID [facility] Last Admin: 10/16/21 21:01 Dose: 100 mg Documented by: Ceftriaxone Sodium 2 gm/ (Dextrose) 50 mls @ 100 mls/hr IV Q24H [facility]; Protocol Azithromycin 500 mg/ Dextrose 250 mls @ 250 mls/hr IV Q24H [facility]; Protocol Stop: 10/18/21 10:59 Potassium Chloride 40 meq/ (Dextrose) 520 mls @ 130 mls/hr IV UD PRN PRN Reason: Potassium < 3 Magnesium Sulfate (Magnesium Sulfate) 2 gm in 50 mls @ 50 mls/hr IV UD PRN PRN Reason: Magnesium </= 1.6 Levothyroxine Sodium (Levothyroxine 150 Mcg Tablet) 137 mcg PO QDAY [facility] Metoprolol Succinate (Metoprolol Succinate 25 Mg Tab.Xl.24h) 12.5 mg PO .Q HS [facility] Metoprolol Tartrate (Metoprolol Tartrate 5 Mg/5 Ml Vial) 5 mg IV Q2HP PRN PRN Reason: Tachyarrhythmias HR>110 Montelukast Sodium (Montelukast 10 Mg Tablet) 10 mg PO DAILY [facility] Ondansetron HCl (Ondansetron 4 Mg/2 Ml Vial) 4 mg IV Q4HP PRN PRN Reason: Nausea And Vomiting Polyethylene Glycol (Polyethylene Glycol 3350 17 Gm Packet) 17 gm PO DAILYP PRN PRN Reason: Constipation Potassium Chloride (Potassium Chloride 20 Meq Tablet) 40 meq PO UD PRN PRN Reason: Potssium is 3-3.5 Potassium Chloride (Potassium Chloride 20 Meq Tablet) 40 meq PO UD PRN PRN Reason: Potassium < 3 Senna (Sennosides 1 Tablet) 2 tab PO DAILYP PRN PRN Reason: Constipation Sodium Chloride (0.9 % Sodium Chloride 10 Ml Syringe) 10 ml IV Q8 [facility] Last Admin: 10/17/21 05:25 Dose: Not Given Documented by: A/P Narrative A/P Narrative: A: *Acute hypoxic respiratory failure: -on 3L NC *Covid PNA: - *TAM on CKD IIIb: suspect volume depletion -poor UOP *Metabolic acidosis: *Sepsis: -leukocytosis mildly improved *Electrolyte d/o (hyponatremia/hyperkalemia/hyperphos): monitor *Pulmonary fibrosis: *GREGORY on CPAP: *Permanent AFib: *Hyponatremia: *Obesity: BMI 38 *MSK chest pain: 2/2 pna *Hypothyroidism P: -Rem/Dexa -empric Abx, pending SC -IVF, urine studies, -f/u renal fxn -O2 supp, wean -IS/Acapella -proning/oob to chair/mobilization -home cpap -echo -monitor CRP -hold home ARB for tam, cont BB -cont home asa/eliquis -PT/OT -ppx: Eliquis DNR Time Spent With Patient Time: Total time spent is greater than 50% in coordination of care (as documented) at patient's floor/unit and/or counseling patient: Total time spent with greater than 50% in coordination of care (as documented) at patient's floor/unit and/or counseling patient:: 35 - 50 minutes QUALITY VTE Deep Vein Thrombosis/Pulmonary Embolism Present on Admission: No
[2021-10-17 08:13] LABS: ALT/SGPT 25 U/L (<40); AST/SGOT 25 U/L (<32); Albumin 3.1 gm/dL (3.2-5.2); Albumin/Globulin Ratio 0.7 (1.0-2.3); Alkaline Phosphatase 127 U/L (39-117); Bilirubin,Direct 0.6 mg/dL (<0.3); Bilirubin,Total 0.9 mg/dL (0.1-1.0); Blood Urea Nitrogen 41 mg/dL (8-23); Calcium 9.3 mg/dL (8.6-10.4); Carbon Dioxide 21 mmol/L (22-30); Chloride 93 mmol/L (96-108); Globulin 4.3 gm/dL (2.2-3.7); Glomerular Filtration Rate 23; Glucose 152 mg/dL (70-105); Lactate Dehydrogenase 271 U/L (135-225); Phosphorous 5.3 mg/dL (2.5-4.5); Triglycerides 53 mg/dL (<150); Uric Acid 10.5 mg/dL (2.5-8.0)
[2021-10-17] MEDS: DEXAMETHASONE 4 MG TABLET PO SCH (08:23)
[2021-10-17] MEDS: DOCUSATE SODIUM 100 MG CAPSULE PO SCH ×2 (08:23→21:31)
[2021-10-17] MEDS: APIXABAN 5 MG TABLET PO SCH ×2 (08:23→21:30)
[2021-10-17] MEDS: MONTELUKAST 10 MG TABLET PO SCH (08:24)
[2021-10-17] MEDS: ASPIRIN 81 MG TAB.CHEW PO SCH (08:24)
[2021-10-17] MEDS: LEVOTHYROXINE SODIUM 112 MCG TABLET PO SCH (08:41)
[2021-10-17] MEDS: LEVOTHYROXINE 25 MCG TABLET PO SCH (08:41)
[2021-10-17] MEDS ORDERED: LEVOTHYROXINE 150 MCG TABLET PO SCH (09:00)
[2021-10-17] MEDS: cefTRIAXone 2 GM in DEXTROSE 5% IN WATER 50 ML IV SCH (10:31)
[2021-10-17] MEDS ORDERED: LACTATED RINGERS 1,000 ML IV ONE (10:37)
[2021-10-17] MEDS: AZITHROMYCIN 500 MG in DEXTROSE 5% IN WATER 250 ML IV SCH (11:17)
[2021-10-17 13:36] LABS: Urea Nitrogen, Urine 338 mg/dL
[2021-10-17 15:47] LABS: Blood Urea Nitrogen 56 mg/dL (8-23); Calcium 9.4 mg/dL (8.6-10.4); Carbon Dioxide 22 mmol/L (22-30); Chloride 93 mmol/L (96-108); Glomerular Filtration Rate 25; Glucose 205 mg/dL (70-105)
[2021-10-17] MEDS ORDERED: 0.9 % SODIUM CHLORIDE 1,000 ML IV ONE (16:01)
[2021-10-18] MEDS: 0.9 % SODIUM CHLORIDE 10 ML SYRINGE IV SCH ×3 (05:31→23:00)
[2021-10-18 06:47] LABS: Basophils # (Auto) 0.02 K/mcL (0.00-0.30); Basophils % (Auto) 0.1 % (0.0-2.0); Eosinophils # (Auto) 0 K/mcL (0.00-0.70); Eosinophils % (Auto) 0 % (0.0-7.0); Hematocrit 38.4 % (34.1-44.9); Hemoglobin 12.1 g/dL (11.2-15.7); Lymphocytes # (Auto) 0.76 K/mcL (1.50-4.80); Lymphocytes % (Auto) 5.5 % (15.5-49.0); Mean Cell Volume 101.3 fL (80.0-100.0); Mean Corpuscular HGB Conc 31.5 g/dL (31.0-36.0); Mean Platelet Volume 10.5 fL (7.4-10.4); Monocytes # (Auto) 0.61 K/mcL (0.10-0.90); Monocytes % (Auto) 4.4 % (1.0-12.0); Platelet Count 240 K/mcL (140-440); RBC 3.79 M/mcL (3.59-5.38); WBC 13.8 K/mcL (4.5-11.0)
[2021-10-18 07:15] LABS: ALT/SGPT 32 U/L (<40); AST/SGOT 32 U/L (<32); Albumin 3.2 gm/dL (3.2-5.2); Albumin/Globulin Ratio 0.8 (1.0-2.3); Alkaline Phosphatase 113 U/L (39-117); Bilirubin,Direct 0.3 mg/dL (<0.3); Bilirubin,Total 0.5 mg/dL (0.1-1.0); Blood Urea Nitrogen 44 mg/dL (8-23); Calcium 9.1 mg/dL (8.6-10.4); Carbon Dioxide 23 mmol/L (22-30); Chloride 96 mmol/L (96-108); Glomerular Filtration Rate 33; Glucose 148 mg/dL (70-105); Lactate Dehydrogenase 245 U/L (135-225); Phosphorous 3.8 mg/dL (2.5-4.5); Triglycerides 50 mg/dL (<150); Uric Acid 10.8 mg/dL (2.5-8.0)
--- NOTE | 2021-10-18 07:34 | Internal Med Progress Note ---
SUBJECTIVE Subjective Patient information: Note initiated : 10/18/21 at 7:31 am Service Date, if different from initiated Date: [] Patient: George Ma 81 y/o F admitted on 10/16/21 for Shortness of Breath. Chief Complaint: [] Interval history: History of present illness: Ms. Ma is a 81 year old F Presents the ED with shortness of breath. Patient says she has been dealing with bronchitis off and on for the past month. She says that she went to bed feeling fine and woke up today with a right side stabbing chest pain made worse by deep breathing and coughing. She says she gets a cough whenever she has a bronchitis but does not have a chronic cough. He says she has a cough productive of yellow phlegm. She has dyspnea on exertion. She says she sleeps in recliner because she wakes up often in her bed and she also said she does get short of breath when she lays in her bed but she says this has not changed lately. Rapid COVID was negative in the ED. Chest x-ray is read as suspect to be edema with possible underlying pneumonia. She did have a leukocytosis of 18,000, afebrile vital signs but was tachycardic and tachypneic. Oxygen saturation of 83% on room air. Labs included a hyponatremia and elevated BUN and creatinine. Her proBNP was also elevated at 1770. Last echo done in early 2020 showed normal EF with some diastolic dysfunction. 10/17 Patient has mild cough and shortness of breath. Right side lateral chest pain improving. Patient has dark urine and poor urine output per nurse. BUN and creatinine elevated today. Potassium and sodium abnormal. IV fluid hydration follow-up labs this afternoon. Monitor CRP. Continue dexamethasone. Remdesivir held for renal function. Urine studies. 10/18 Feeling a little better today. Mild cough. Shortness of breath improving. BUN and creatinine mildly improved today responding to IV fluid. We will attempt to wean down oxygen today. Continue COVID treatment therapies. Review of Systems: denies headache/fever/chills/nausea/vomiting/chest or abdominal pain/diarrhea. Otherwise see above. Constitutional Vitals: Vital Signs Temp Pulse Resp BP Pulse Ox 97.4 F 78 18 149/92 94 10/18/21 04:39 10/18/21 04:39 10/18/21 04:39 10/18/21 04:39 10/18/21 04:42 Period Temp Pulse Resp BP Sys/Figueredo Pulse Ox Last 24 Hr 97.2 F-97.9 F 78-99 18- 114-149/61-92 87-98 Intake and Output 10/17/21 10/18/21 10/18/21 21:59 05:59 13:59 Intake Total 480 200 Output Total 210 Balance 480 -10 Weight 109.429 kg Intake & Output: Intake & Output 10/17/21 10/18/21 10/18/21 21:59 05:59 13:59 Intake Total 480 200 Output Total 210 Balance 480 -10 Weight 109.429 kg Intake: Oral 480 200 Output: Void Amount 210 Other: Meal Dinner Percent of Meal Consumed 50% Feeding Ability Independent Urine Appearance Clear Urine Color Dark Yellow # Voids 2 # Bowel Movements 1 Exam: General: Alert, Awake, No acute Distress, obese Eyes/N/T: EOMI, Head/Neck: neck supple, CV: irreg irreg, No murmurs, Pulm: Fine rales b/l, Abd: soft, nontender, +BS x4 Ext: no clubbing/cyanosis, trace b/l LE edema Neuro: Alert, no focal deficits, moves all extremities, Skin: warm/dry OBJ DATA Labs CBC & Chem 7: 10/18/21 05:47 10/18/21 05:46 Labs: Abnormal Lab Results 10/18/21 10/18/21 10/17/21 05:47 05:46 13:02 WBC 13.8 H MCV 101.3 H MCHC MPV 10.5 H Neut % (Auto) 90.0 H Lymph % (Auto) 5.5 L Lymph # (Auto) 0.76 L Ransom # (Auto) Lymphocytes % Absolute Neutrophils 12.40 H POC Sodium Sodium 131 L 132 L Potassium Chloride 93 L Carbon Dioxide Anion Gap 17.0 H POC BUN BUN 44 H 56 H Creatinine 1.5 H 1.9 H POC Creatinine Glucose 148 H 205 H POC Glucose Uric Acid 10.8 H POC WB Ioniz Calcium Phosphorus Total Bilirubin Direct Bilirubin 0.3 H GGT 66 H AST 32 H Alkaline Phosphatase Lactate Dehydrogenase 245 H C-Reactive Protein 21.10 H NT-Pro-B Natriuret Pep Albumin Globulin 4.0 H Albumin/Globulin Ratio 0.8 L Procalcitonin Urine Appearance Urine Protein Urine Occult Blood Ur Leukocyte Esterase Urine WBC Ur Squamous Epith Cells Urine Bacteria Hyaline Casts Urine Mucus 10/17/21 10/17/21 10/17/21 06:15 06:15 02:38 WBC 16.3 H MCV 100.8 H MCHC 30.7 L MPV Neut % (Auto) 94.2 H Lymph % (Auto) 3.1 L Lymph # (Auto) 0.51 L Ransom # (Auto) Lymphocytes % Absolute Neutrophils 15.35 H POC Sodium Sodium 131 L Potassium 5.5 H Chloride 93 L Carbon Dioxide 21 L Anion Gap 17.0 H POC BUN BUN 41 H Creatinine 2.0 H POC Creatinine Glucose 152 H POC Glucose Uric Acid 10.5 H POC WB Ioniz Calcium Phosphorus 5.3 H Total Bilirubin Direct Bilirubin 0.6 H GGT 67 H AST Alkaline Phosphatase 127 H Lactate Dehydrogenase 271 H C-Reactive Protein NT-Pro-B Natriuret Pep Albumin 3.1 L Globulin 4.3 H Albumin/Globulin Ratio 0.7 L Procalcitonin Urine Appearance Cloudy A Urine Protein 30 mg/dl A Urine Occult Blood Small A Ur Leukocyte Esterase Trace A Urine WBC 6 H Ur Squamous Epith Cells 10 H Urine Bacteria Few A Hyaline Casts 21 H Urine Mucus Few A 10/16/21 10/16/21 10/16/21 13:25 13:25 13:25 WBC MCV MCHC MPV Neut % (Auto) Lymph % (Auto) Lymph # (Auto) Ransom # (Auto) Lymphocytes % 5 L Absolute Neutrophils POC Sodium Sodium Potassium Chloride Carbon Dioxide Anion Gap POC BUN BUN Creatinine POC Creatinine Glucose POC Glucose Uric Acid POC WB Ioniz Calcium Phosphorus Total Bilirubin 1.4 H Direct Bilirubin 0.8 H GGT AST Alkaline Phosphatase 124 H Lactate Dehydrogenase C-Reactive Protein 23.10 H NT-Pro-B Natriuret Pep Albumin Globulin 4.4 H Albumin/Globulin Ratio Procalcitonin 0.17 H Urine Appearance Urine Protein Urine Occult Blood Ur Leukocyte Esterase Urine WBC Ur Squamous Epith Cells Urine Bacteria Hyaline Casts Urine Mucus 10/16/21 10/16/21 10/16/21 13:25 13:25 13:19 WBC 18.5 H MCV MCHC MPV 10.7 H Neut % (Auto) 89.7 H Lymph % (Auto) 3.7 L Lymph # (Auto) 0.69 L Ransom # (Auto) 1.16 H Lymphocytes % Absolute Neutrophils 16.56 H POC Sodium 132 L Sodium Potassium Chloride Carbon Dioxide Anion Gap POC BUN 40 H BUN Creatinine POC Creatinine 1.7 H Glucose POC Glucose 135 H Uric Acid POC WB Ioniz Calcium 1.13 L Phosphorus Total Bilirubin Direct Bilirubin GGT AST Alkaline Phosphatase Lactate Dehydrogenase C-Reactive Protein NT-Pro-B Natriuret Pep 1771.0 H Albumin Globulin Albumin/Globulin Ratio Procalcitonin Urine Appearance Urine Protein Urine Occult Blood Ur Leukocyte Esterase Urine WBC Ur Squamous Epith Cells Urine Bacteria Hyaline Casts Urine Mucus Meds: Medications Acetaminophen (Acetaminophen 325 Mg Tablet) 650 mg PO Q6HP PRN; Protocol PRN Reason: Per Pain Protocol/Fever > 101 Last Admin: 10/16/21 21:00 Dose: 650 mg Documented by: Albuterol/Ipratropium (Ipratropium/Albuterol 3 Ml Ampul.Neb) 3 ml NEB Q4HP PRN PRN Reason: Shortness Of Breath Apixaban (Apixaban 5 Mg Tablet) 5 mg PO BID [facility] Last Admin: 10/17/21 21:30 Dose: 5 mg Documented by: Aspirin (Aspirin 81 Mg Tab.Chew) 81 mg PO DAILY [facility] Last Admin: 10/17/21 08:24 Dose: 81 mg Documented by: Benzonatate (Benzonatate 100 Mg Capsule) 100 mg PO TIDP PRN PRN Reason: Cough Last Admin: 10/16/21 23:38 Dose: 100 mg Documented by: Dexamethasone (Dexamethasone 4 Mg Tablet) 6 mg PO DAILY [facility] Last Admin: 10/17/21 08:23 Dose: 6 mg Documented by: Docusate Sodium (Docusate Sodium 100 Mg Capsule) 100 mg PO BID [facility] Last Admin: 10/17/21 21:31 Dose: 100 mg Documented by: Ceftriaxone Sodium 2 gm/ (Dextrose) 50 mls @ 100 mls/hr IV Q24H [facility]; Protocol Last Infusion: 10/17/21 11:05 Dose: Infused Documented by: Azithromycin 500 mg/ Dextrose 250 mls @ 250 mls/hr IV Q24H [facility]; Protocol Stop: 10/18/21 10:59 Last Infusion: 10/17/21 12:20 Dose: Infused Documented by: Potassium Chloride 40 meq/ (Dextrose) 520 mls @ 130 mls/hr IV UD PRN PRN Reason: Potassium < 3 Magnesium Sulfate (Magnesium Sulfate) 2 gm in 50 mls @ 50 mls/hr IV UD PRN PRN Reason: Magnesium </= 1.6 Levothyroxine Sodium (Levothyroxine Sodium 112 Mcg Tablet) 112 mcg PO [facility] Last Admin: 10/17/21 08:41 Dose: 112 mcg Documented by: Levothyroxine Sodium (Levothyroxine 25 Mcg Tablet) 25 mcg PO [facility] Last Admin: 10/17/21 08:41 Dose: 25 mcg Documented by: Metoprolol Succinate (Metoprolol Succinate 25 Mg Tab.Xl.24h) 12.5 mg PO .Q HS [facility] Metoprolol Tartrate (Metoprolol Tartrate 5 Mg/5 Ml Vial) 5 mg IV Q2HP PRN PRN Reason: Tachyarrhythmias HR>110 Montelukast Sodium (Montelukast 10 Mg Tablet) 10 mg PO DAILY [facility] Last Admin: 10/17/21 08:24 Dose: 10 mg Documented by: Ondansetron HCl (Ondansetron 4 Mg/2 Ml Vial) 4 mg IV Q4HP PRN PRN Reason: Nausea And Vomiting Polyethylene Glycol (Polyethylene Glycol 3350 17 Gm Packet) 17 gm PO DAILYP PRN PRN Reason: Constipation Potassium Chloride (Potassium Chloride 20 Meq Tablet) 40 meq PO UD PRN PRN Reason: Potssium is 3-3.5 Potassium Chloride (Potassium Chloride 20 Meq Tablet) 40 meq PO UD PRN PRN Reason: Potassium < 3 Senna (Sennosides 1 Tablet) 2 tab PO DAILYP PRN PRN Reason: Constipation Sodium Chloride (0.9 % Sodium Chloride 10 Ml Syringe) 10 ml IV Q8 [facility] Last Admin: 10/18/21 05:31 Dose: Not Given Documented by: A/P Narrative A/P Narrative: A: *Acute hypoxic respiratory failure: -still on 3L NC *Covid PNA: - *TAM on CKD IIIb: suspect volume depletion -improving with IVF *Metabolic acidosis: Improving *Sepsis: Improving -leukocytosis improving gradually *Electrolyte d/o (hyponatremia/hyperkalemia/hyperphos): monitor *Pulmonary fibrosis: *GREGORY on CPAP: *Permanent AFib: *Hyponatremia: *Obesity: BMI 38 *MSK chest pain: 2/2 pna *Hypothyroidism P: -Dexa, Rem held for renal fxn -empric Abx, pending SC -O2 supp, wean -IS/Acapella -proning/oob to chair/mobilization -home cpap -echo -monitor CRP -hold home ARB for tam, cont BB -cont home asa/eliquis -PT/OT -ppx: Eliquis DNR Time Spent With Patient Time: Total time spent is greater than 50% in coordination of care (as documented) at patient's floor/unit and/or counseling patient: Total time spent with greater than 50% in coordination of care (as documented) at patient's floor/unit and/or counseling patient:: 25 - 35 minutes QUALITY VTE Deep Vein Thrombosis/Pulmonary Embolism Present on Admission: No
[2021-10-18] MEDS: LEVOTHYROXINE 25 MCG TABLET PO SCH (07:41)
[2021-10-18] MEDS: LEVOTHYROXINE SODIUM 112 MCG TABLET PO SCH (07:41)
[2021-10-18] MEDS: DEXAMETHASONE 4 MG TABLET PO SCH (08:53)
[2021-10-18] MEDS: APIXABAN 5 MG TABLET PO SCH ×2 (08:54→20:14)
[2021-10-18] MEDS: DOCUSATE SODIUM 100 MG CAPSULE PO SCH ×2 (08:54→20:14)
[2021-10-18] MEDS: ASPIRIN 81 MG TAB.CHEW PO SCH (08:54)
[2021-10-18] MEDS: MONTELUKAST 10 MG TABLET PO SCH (08:54)
[2021-10-18] MEDS: cefTRIAXone 2 GM in DEXTROSE 5% IN WATER 50 ML IV SCH (08:56)
[2021-10-18] MEDS: AZITHROMYCIN 500 MG in DEXTROSE 5% IN WATER 250 ML IV SCH (09:44)
--- NOTE | 2021-10-18 10:40 | Discharge Summary ---
Discharge Provider Provider IMPORTANT FOLLOW-UP INFORMATION FOR PCP: Patient information: Note initiated : 10/18/21 at 10:36 am Service Date, if different from initiated Date: [] Patient: George Ma 81 y/o F admitted on 10/16/21 for Shortness of Breath. Chief Complaint: [] Date of admission: 10/16/21 18:43 Discharge date: 10/19/21 Primary care physician: Lissette Rivera Consults: 10/16/21 Consult to Physician [CONS] Stat Comment: Consulting Provider: Constantino Palma Reason For Exam: Physician to Consult COURSE Hospital Course Hospital course: History of present illness: Ms. Ma is a 81 year old F Presents the ED with shortness of breath. Patient says she has been dealing with bronchitis off and on for the past month. She says that she went to bed feeling fine and woke up today with a right side stabbing chest pain made worse by deep breathing and coughing. She says she gets a cough whenever she has a bronchitis but does not have a chronic cough. He says she has a cough productive of yellow phlegm. She has dyspnea on exertion. She says she sleeps in recliner because she wakes up often in her bed and she also said she does get short of breath when she lays in her bed but she says this has not changed lately. Rapid COVID was negative in the ED. Chest x-ray is read as suspect to be edema with possible underlying pneumonia. She did have a leukocytosis of 18,000, afebrile vital signs but was tachycardic and tachypneic. Oxygen saturation of 83% on room air. Labs included a hyponatremia and elevated BUN and creatinine. Her proBNP was also elevated at 1770. Last echo done in early 2020 showed normal EF with some diastolic dysfunction. 10/17 Patient has mild cough and shortness of breath. Right side lateral chest pain improving. Patient has dark urine and poor urine output per nurse. BUN and creatinine elevated today. Potassium and sodium abnormal. IV fluid hydration follow-up labs this afternoon. Monitor CRP. Continue dexamethasone. Remdesivir held for renal function. Urine studies. 10/18 Feeling a little better today. Mild cough. Shortness of breath improving. BUN and creatinine mildly improved today responding to IV fluid. We will attempt to wean down oxygen today. Continue COVID treatment therapies. 10/19 Patient doing well and wanted to go home. Nasal cannula at 1 L, will try her room air and also have RT evaluate her for home oxygen. A: *Acute hypoxic respiratory failure: *Covid PNA: *TAM on CKD IIIb: suspect volume depletion *Metabolic acidosis: Improving *Sepsis: *Electrolyte d/o (hyponatremia/hyperkalemia/hyperphos): monitor *Pulmonary fibrosis: *GREGORY on CPAP: *Permanent AFib: *Hyponatremia: *Obesity: BMI 38 *MSK chest pain: 2/2 pna *Hypothyroidism P: -O2 supp prn Discharge diagnosis: COVID-pneumonia acute hypoxic respite failure acute kidney injury metabolic Secondary discharge diagnosis: Sepsis electrolyte disorder pulmonary fibrosis watch sleep apnea permanent A. fib hyponatremia obesity pleurisy hypothyroidism Time Spent with Patient Time attestation: Total time spent providing and/or coordinating discharge services: Time spent: Greater than 30 minutes EXAM Constitutional Vitals: Temp Pulse Resp BP Pulse Ox 97.4 F 78 18 149/92 94 10/18/21 04:39 10/18/21 04:39 10/18/21 04:39 10/18/21 04:39 10/18/21 04:42 Discharge Data Data Completed and Pending Labs on day of discharge: Labs from last 24 hours 10/18/21 10/18/21 10/17/21 05:47 05:46 13:02 WBC 13.8 H RBC 3.79 Hgb 12.1 Hct 38.4 MCV 101.3 H MCH 31.9 MCHC 31.5 RDW 14.0 Plt Count 240 MPV 10.5 H Neut % (Auto) 90.0 H Lymph % (Auto) 5.5 L Faulk % (Auto) 4.4 Eos % (Auto) 0 Baso % (Auto) 0.1 Lymph # (Auto) 0.76 L Faulk # (Auto) 0.61 Eos # (Auto) 0 Baso # (Auto) 0.02 Absolute Neutrophils 12.40 H Sodium 131 L 132 L Potassium 5.1 4.8 Chloride 96 93 L Carbon Dioxide 23 22 Anion Gap 12.0 17.0 H BUN 44 H 56 H Creatinine 1.5 H 1.9 H GFR Calculation 33 25 Glucose 148 H 205 H Uric Acid 10.8 H Calcium 9.1 9.4 Phosphorus 3.8 Magnesium 2.3 Total Bilirubin 0.5 Direct Bilirubin 0.3 H GGT 66 H AST 32 H ALT 32 Alkaline Phosphatase 113 Lactate Dehydrogenase 245 H C-Reactive Protein 21.10 H Total Protein 7.2 Albumin 3.2 Globulin 4.0 H Albumin/Globulin Ratio 0.8 L Triglycerides 50 Ur Random Creatinine Ur Random Sodium Urine Urea Nitrogen 10/17/21 10/17/21 10/17/21 02:38 02:38 02:38 WBC RBC Hgb Hct MCV MCH MCHC RDW Plt Count MPV Neut % (Auto) Lymph % (Auto) Faulk % (Auto) Eos % (Auto) Baso % (Auto) Lymph # (Auto) Faulk # (Auto) Eos # (Auto) Baso # (Auto) Absolute Neutrophils Sodium Potassium Chloride Carbon Dioxide Anion Gap BUN Creatinine GFR Calculation Glucose Uric Acid Calcium Phosphorus Magnesium Total Bilirubin Direct Bilirubin GGT AST ALT Alkaline Phosphatase Lactate Dehydrogenase C-Reactive Protein Total Protein Albumin Globulin Albumin/Globulin Ratio Triglycerides Ur Random Creatinine 180.8 Ur Random Sodium 22 Urine Urea Nitrogen 338 Discharge Plan Patient/Caregiver Discharge Instructions Activity: increase activity as tolerated Diet: Regular Diet Activity Restrictions/Additional Instructions: Home oxygen for COVID-pneumonia Prescriptions: Continued albuterol sulfate [Ventolin HFA] 90 mcg/actuation HFA aerosol inhaler 2 puff INHALATION QID Qty: 18 6RF azithromycin [Zithromax] 250 mg tablet See Rx Instructions PO .COMPLEX Qty: 6 0RF Rx Instructions: For 250 mg dose pack: take 500 mg today (day 1), then 250 mg for 4 days (days 2-5) PO (DME) Handicap Placard See Rx Instructions .Route .MEDSUPPLY Qty: 1 0RF Rx Instructions: Patient unable to walk more than 6 feet without significant difficulties breathing due to medical conditions. montelukast 10 mg tablet See Rx Instructions .ROUTE .COMPLEX Qty: 90 4RF Dose Instruction: Take 1 tablet by mouth once daily Rx Instructions: Take 1 tablet by mouth once daily metoprolol succinate 25 mg tablet extended release 24 hr 12.5 mg PO .Q HS Qty: 30 1RF Eliquis 5 mg tablet 5 mg PO DAILY 0RF levothyroxine [Synthroid] 150 mcg tablet 137 mcg PO QDAY 0RF chlorthalidone 50 mg tablet 50 mg PO DAILY 0RF furosemide 20 mg tablet 20 mg PO QDAY 0RF Rx Instructions: increase for a week. ProAir HFA 1 puff aerosol 1 puff PRN PRN (Reason: Shortness Of Breath) 0RF Ventolin HFA aerosol 2 puff inhalation PRN PRN (Reason: Shortness Of Breath) 0RF aspirin 81 mg Tablet 81 mg PO BID 0RF Follow Up Plan Follow up with: Lissette Rivera ARNP [Primary Care Provider] - Patient Disposition: Home, Self-Care Prognosis: Fair Overall status at discharge: patient is progressing back to baseline Discharge Orders: Discharge Order (Routine); Ordered 10/19/21 Ordered By: Constantino Palma [facility] VTE Deep Vein Thrombosis/Pulmonary Embolism Present on Admission: No
[2021-10-18] MEDS: BENZONATATE 100 MG CAPSULE PO PRN (20:14)
[2021-10-18] MEDS ORDERED: guaiFENesin/CODEINE 10 ML UDC PO PRN (23:19)
[2021-10-19] MEDS: 0.9 % SODIUM CHLORIDE 10 ML SYRINGE IV SCH (05:19)
[2021-10-19 06:21] LABS: Basophils # (Auto) 0.03 K/mcL (0.00-0.30); Basophils % (Auto) 0.2 % (0.0-2.0); Eosinophils # (Auto) 0.01 K/mcL (0.00-0.70); Eosinophils % (Auto) 0.1 % (0.0-7.0); Hemoglobin 12.4 g/dL (11.2-15.7); Lymphocytes % (Auto) 9.7 % (15.5-49.0); Mean Corpuscular HGB Conc 31.8 g/dL (31.0-36.0); Mean Platelet Volume 10.1 fL (7.4-10.4); Monocytes # (Auto) 1.18 K/mcL (0.10-0.90); Monocytes % (Auto) 8.2 % (1.0-12.0); Neutrophils % (Auto) 81.8 % (38.0-78.0); Platelet Count 252 K/mcL (140-440); RBC 3.86 M/mcL (3.59-5.38); Red Cell Distribution Width 14.3 % (11.5-14.5); WBC 14.4 K/mcL (4.5-11.0)
[2021-10-19 06:52] LABS: ALT/SGPT 38 U/L (<40); AST/SGOT 34 U/L (<32); Albumin 3.1 gm/dL (3.2-5.2); Albumin/Globulin Ratio 0.8 (1.0-2.3); Alkaline Phosphatase 112 U/L (39-117); Bilirubin,Direct 0.2 mg/dL (<0.3); Bilirubin,Total 0.4 mg/dL (0.1-1.0); Blood Urea Nitrogen 52 mg/dL (8-23); Calcium 9.3 mg/dL (8.6-10.4); Carbon Dioxide 26 mmol/L (22-30); Chloride 99 mmol/L (96-108); Globulin 3.9 gm/dL (2.2-3.7); Glomerular Filtration Rate 43; Glucose 118 mg/dL (70-105); Lactate Dehydrogenase 248 U/L (135-225); Phosphorous 3.7 mg/dL (2.5-4.5); Triglycerides 57 mg/dL (<150)
[2021-10-19] MEDS: LEVOTHYROXINE 25 MCG TABLET PO SCH (07:23)
[2021-10-19] MEDS: LEVOTHYROXINE SODIUM 112 MCG TABLET PO SCH (07:24)
[2021-10-19] MEDS: ASPIRIN 81 MG TAB.CHEW PO SCH (08:32)
[2021-10-19] MEDS: APIXABAN 5 MG TABLET PO SCH (08:32)
[2021-10-19] MEDS: MONTELUKAST 10 MG TABLET PO SCH (08:32)
[2021-10-19] MEDS: DEXAMETHASONE 4 MG TABLET PO SCH (08:32)
[2021-10-19] MEDS: DOCUSATE SODIUM 100 MG CAPSULE PO SCH (08:32)
[2021-10-19] MEDS: cefTRIAXone 2 GM in DEXTROSE 5% IN WATER 50 ML IV SCH (08:34)
[2021-10-19] MEDS ORDERED: METOPROLOL SUCCINATE 25 MG TAB.XL.24H PO SCH (21:00)
== END 2021-10-19 12:00 | disposition home or self-care (01) | DRG 177 ==
LOC: ED 12:48 → MEDSUR 18:43
PROVIDERS: ADMIT Internal Medicine; ATTEND Internal Medicine

== ENCOUNTER 2022-05-05 08:41 | Inpatient (IN) ==
[2022-05-05] MEDS ORDERED: methylPREDNISolone SOD SUCC 125 MG/2 ML VIAL IV ONE (08:54)
[2022-05-05] MEDS ORDERED: IPRATROPIUM/ALBUTEROL 3 ML AMPUL.NEB NEB ONE (08:54)
--- NOTE | 2022-05-05 08:55 | Emergency Department Note ---
SOB HPI General Chief Complaint: Shortness of Breath/Dyspnea Stated Complaint: pneumonia Time Seen by Provider: 05/05/22 08:43 Source: patient and family Mode of arrival: wheelchair Limitations: no limitations History of Present Illness HPI Narrative: Narrative: Patient presents ED with complaints of worsening shortness of breath over the last 2 days. Patient states normally she uses 5 to 6 L of oxygen via nasal cannula, today she just feels really short of breath. She reports that she is a DNR. She reports history of pulmonary fibrosis. She does report associated chills. She denies nausea, vomiting, fever, abdominal pain, diarrhea. She does report some mild sternal chest pain that she rates 2/10. Patient denies any other alleviating or aggravating factors. Related Data Home Medications Medication Instructions Recorded Confirmed furosemide 20 mg tablet 40 mg PO QDAY FLUID RETENTION 12/04/21 04/06/22 losartan 100 mg tablet 100 mg PO QDAY 12/04/21 04/06/22 apixaban 5 mg tablet (Eliquis) 5 mg PO QDAY 04/06/22 Previous Rx's Medication Instructions Recorded montelukast 10 mg tablet See Rx Instructions .Route 02/06/21 .COMPLEX #90 tabs Handicap Placard #1 ea 04/18/21 ipratropium 0.5 mg-albuterol 3 mg 3 ml inhalation TID 30 days #270 mL 10/20/21 (2.5 mg base)/3 mL nebulization soln levothyroxine 150 mcg tablet 137 mcg PO QDAY #90 tabs 10/27/21 (Synthroid) tiotropium 2.5 mcg-olodaterol 2.5 2 puff inhalation QDAY #4 grams 11/25/21 mcg/actuation mist for inhalation (Stiolto Respimat) liothyronine 5 mcg tablet 5 mcg PO QDAY #90 tabs 12/04/21 albuterol sulfate 90 mcg/actuation 2 puff inhalation QID #18 grams 03/31/22 aerosol inhaler (Ventolin HFA) metoprolol succinate 25 mg 50 mg PO .Q HS #90 tabs 04/06/22 tablet,extended release 24 hr sertraline 50 mg tablet 50 mg PO QDAY #30 tabs 04/06/22 spironolactone 25 mg tablet 25 mg PO QDAY #30 tabs 04/06/22 trazodone 50 mg tablet 25 mg PO QDAY #30 tabs 04/06/22 fluticasone fur. 200 mcg-umeclid 1 inh inhalation QDAY #60 ea 05/04/22 62.5 mcg-vilant 25 mcg inhalat.powder (Trelegy Ellipta) Allergies Allergy/AdvReac Type Severity Reaction Status Date / Time codeine AdvReac Mild Confusion Verified 04/06/22 15:23 meperidine [From Demerol] AdvReac Mild Vomiting Verified 04/06/22 15:23 wool AdvReac Mild itch Verified 04/06/22 15:23 Review of Systems ROS ROS Narrative: Narrative: All systems ED: reviewed and negative except as stated. [facility] Narrative Patient History Narrative: Narrative: Medical/Surgical/Family History All Active Problems (Updated 05/05/22 @ 10:03 by Ferny Atwood DO) Acute and chronic respiratory failure with hypoxia (Acute) COVID-19 virus infection (Acute) Sepsis, viral (Acute) Influenza B (Acute) Anxiety (Acute) Insomnia (Acute) Anxiety (Acute) Bilateral chronic knee pain (Acute) Restrictive lung disease (Chronic) Post covid-19 condition, unspecified (Acute) Acute congestive heart failure (Acute) Acute pneumonia (Acute) CHF (congestive heart failure) (Acute) Afib (Chronic) Dyspnea (Acute) GREGORY (obstructive sleep apnea) (Chronic) Pulmonary fibrosis (Chronic) Acute bronchitis (Chronic) Deep vein thrombosis of lower extremity (Chronic) Asymptomatic hypertensive urgency (Acute) Fever (Acute) Obesity (BMI 30.0-34.9) (Chronic) Hypothyroidism, acquired (Chronic) Asthma, mild intermittent (Chronic) Hypertension, essential (Chronic) Sinusitis (Chronic) Mild congestive heart failure (Chronic) Insulin resistance syndrome (Chronic) Snoring (Chronic) Chronic rhinitis (Chronic) Secondary pulmonary arterial hypertension (Chronic) Abnormal pulmonary function test (Chronic) Asthma (Chronic) Left ventricular hypertrophy (Chronic) Secondary pulmonary hypertension (Chronic) Hyperplastic colonic polyp (Chronic) Bilateral primary osteoarthritis of knee (Chronic) Bilateral knee pain (Acute) History of varicose veins (Chronic) History of deep venous thrombosis (Chronic) Decreased circulation (Chronic) Multiple joint pain (Chronic) Chronic pulmonary congestion (Chronic) CHF (congestive heart failure) (Chronic) Encounter for long-term (current) use of medications (Chronic) Hyperlipidemia (Chronic) Skin rash (Chronic) Skin lesion (Chronic) Allergic rhinitis (Chronic) Stress (Chronic) Hypothyroidism (Chronic) Anxiety and depression (Chronic) Special screening for malignant neoplasms, colon (Chronic) Weight gain (Chronic) Multiple nevi (Chronic) Left shoulder pain (Chronic) Fatigue (Chronic) Screening for malignant neoplasm of cervix (Chronic) Bone spur (Chronic) Keratosis (Chronic) History of bronchitis (Chronic ~2017) Deep vein thrombosis (DVT) of right lower extremity (Chronic ~05/2017) Insomnia, unspecified (Acute) Right lower quadrant pain (Acute) Hypertension, essential (Acute) Constipation (Acute) Stress (Acute) Hyperlipidemia (Acute) Lumbar radiculopathy (Acute) Stage III chronic kidney disease (Acute) Skin mole (Acute) Hypersomnia (Chronic) Nocturnal hypoxia (Chronic) Elevated antinuclear antibody (KOTA) level (Acute) Fluid retention (Acute) Medical History Abnormal pulmonary function test Acute bronchitis Allergic rhinitis Anxiety and depression Asthma Asthma, mild intermittent Bilateral knee pain Bilateral primary osteoarthritis of knee Bone spur CHF (congestive heart failure) Chronic pulmonary congestion Chronic rhinitis Decreased circulation Deep vein thrombosis (DVT) of right lower extremity (~05/2017) Deep vein thrombosis of lower extremity Elevated antinuclear antibody (KOTA) level Encounter for long-term (current) use of medications Fatigue History of bronchitis (~2017) History of deep venous thrombosis History of varicose veins Hyperlipidemia Hyperplastic colonic polyp Hypersomnia Hypertension, essential Hypothyroidism Hypothyroidism, acquired Insulin resistance syndrome Keratosis Left shoulder pain Left ventricular hypertrophy Mild congestive heart failure Multiple joint pain Multiple nevi Nocturnal hypoxia Obesity (BMI 30.0-34.9) GREGORY (obstructive sleep apnea) Restrictive lung disease Screening for malignant neoplasm of cervix Secondary pulmonary arterial hypertension Secondary pulmonary hypertension Sinusitis Skin lesion Skin rash Snoring Special screening for malignant neoplasms, colon Stress Weight gain Surgical History History of colonoscopy (03/31/18) performed by Dr. Frye History of skin cancer (~07/2013) on face History of tonsillectomy Family History Mother , Age 86 Liver cancer Daughter Asthma Unknown Hypertension Father , Age 95 No problems noted. Social History Smoking Status: Former smoker Substance Use: does not use Exam Narrative Narrative: Narrative: General Limitations: no limitations General appearance: Present in distress Chest Chest: Present normal inspection; Absent tenderness Respiratory Respiratory: Present respiratory distress, wheezes and accessory muscle use Cardiovascular Cardiovascular: Present normal rhythm and tachycardia Adbominal Abdominal: Present soft; Absent tenderness Neurological Neurological: Present alert and oriented X3 Psychiatric Psychiatric: Present normal affect and normal mood Skin Skin: Present warm (WNL) and intact Course Course Course Narrative: Patient was evaluated for acute on chronic shortness of breath. Patient was sat ting less than 88% on her baseline oxygen requirement of 5 L via nasal cannula. Patient was placed on a nonrebreather initially started on 15 L. Her oxygen saturations improved up to greater than 95%. Patient does have a history of COPD and pulmonary fibrosis. She was given IV methylprednisolone 125 mg and a DuoNeb. Her breathing did improve slightly we are able to wean her down to 10 L via nonrebreather. Labs show that patient has normal white cell count. Her lactic acid was greater than 4. Patient does meet viral sepsis criteria with tachycardia, tachypnea and source of infection. Patient was bolused IV fluids and also given some Lasix as she most likely has CHF. Patient with positive for influenza B and COVID which would explain her respiratory failure with hypoxia. At this point think is prudent to have patient admitted to the hospital for further treatment and observation. Case discussed with hospitalist who has agreed to admit the patient. Plan of care was discussed with patient and she expressed verbal understanding and agreement. Patient wishes to be a DNR Reevaluation(s) Reevaluation #1: Patient remains hemodynamic stable. No new complaints at this time. Time: 09:45 Consultations Consultation #1: Case discussed with hospitalist who has agreed to admit the patient Time: 10:40 Vital Signs Vital signs: Vital Signs Temperature 98.7 F 05/05/22 08:54 Pulse Rate 105 H 05/05/22 08:54 Respiratory Rate 28 H 05/05/22 08:54 Blood Pressure 157/99 05/05/22 08:54 Pulse Oximetry (%) 66 L 05/05/22 08:54 Oxygen Delivery Method 05/05/22 08:54 Oxygen Flow Rate (L/min) 6 05/05/22 08:54 Temperature 98.7 F 05/05/22 08:54 Pulse Rate 107 H 05/05/22 11:16 Respiratory Rate 27 H 05/05/22 11:32 Blood Pressure 149/97 05/05/22 11:32 Pulse Oximetry (%) 98 05/05/22 11:16 Oxygen Delivery Method 05/05/22 09:46 Oxygen Flow Rate (L/min) 10 05/05/22 09:46 [facility] MDM Narrative Medical decision making narrative: Narrative: Differential Diagnosis Differential Diagnosis: COPD exacerbation, pulmonary embolism, pneumonia Medical Records Medical records reviewed: Yes I reviewed the patient's medical records. Lab Data Lab results reviewed: Yes I reviewed the patient's lab results. Result diagrams: 05/05/22 09:03 Labs: Lab Results 05/05/22 05/05/22 05/05/22 Range/Units 09:02 09:02 09:02 WBC (4.5-11.0) K/mcL RBC (3.59-5.38) M/mcL Hgb (11.2-15.7) g/dL Hct (34.1-44.9) % POC Hct (36-48) MCV (80.0-100.0) fL MCH (26.0-34.0) pg MCHC (31.0-36.0) g/dL RDW (11.5-14.5) % Plt Count (140-440) K/mcL MPV (8.8-12.5) fL Immature Gran % (Auto) (0.0-0.5) % Neut % (Auto) (38.0-78.0) % Lymph % (Auto) (15.5-49.0) % Wilson % (Auto) (1.0-12.0) % Eos % (Auto) (0.0-7.0) % Baso % (Auto) (0.0-2.0) % Lymph # (Auto) (1.50-4.80) K/mcL Wilson # (Auto) (0.10-0.90) K/mcL Eos # (Auto) (0.00-0.70) K/mcL Baso # (Auto) (0.00-0.30) K/mcL Immature Gran # (0.00-0.05) K/mcl Absolute Neutrophils (1.80-8.00) K/mcL POC VBG pH (7.32-7.42) POC VBG pCO2 at Temp (41-51) POC VBG pO2 (25-40) POC VBG HCO3 (24-28) POC VBG Total CO2 (25-29) POC Venous O2 Sat (40-70) POC VBG Base Excess (-2-2) VBG Lactic Acid (0.5-2) POC Sodium (133-145) POC Potassium (3.3-5.1) POC Chloride (96-108) POC Total CO2 (22-30) POC BUN (6-20) POC Creatinine (0.6-1.2) POC Glucose (70-105) POC WB Ioniz Calcium (1.16-1.32) C-Reactive Protein 4.30 H (0.03-0.80) mg/dL NT-Pro-B Natriuret Pep 4771.0 H (<450.0) pg/mL Procalcitonin 0.11 H (<0.10) ng/mL POC Troponin I (0.00-0.08) 05/05/22 05/05/22 05/05/22 Range/Units 09:03 09:08 09:21 WBC 6.4 (4.5-11.0) K/mcL RBC 3.37 L (3.59-5.38) M/mcL Hgb 11.2 (11.2-15.7) g/dL Hct 36.8 (34.1-44.9) % POC Hct 38.0 (36-48) MCV 109.2 H (80.0-100.0) fL MCH 33.2 (26.0-34.0) pg MCHC 30.4 L (31.0-36.0) g/dL RDW 15.9 H (11.5-14.5) % Plt Count 167 (140-440) K/mcL MPV 10.7 (8.8-12.5) fL Immature Gran % (Auto) 0.9 H (0.0-0.5) % Neut % (Auto) 79.0 H (38.0-78.0) % Lymph % (Auto) 11.5 L (15.5-49.0) % Wilson % (Auto) 6.1 (1.0-12.0) % Eos % (Auto) 1.7 (0.0-7.0) % Baso % (Auto) 0.8 (0.0-2.0) % Lymph # (Auto) 0.74 L (1.50-4.80) K/mcL Wilson # (Auto) 0.39 (0.10-0.90) K/mcL Eos # (Auto) 0.11 (0.00-0.70) K/mcL Baso # (Auto) 0.05 (0.00-0.30) K/mcL Immature Gran # 0.06 H (0.00-0.05) K/mcl Absolute Neutrophils 5.09 (1.80-8.00) K/mcL POC VBG pH 7.37 (7.32-7.42) POC VBG pCO2 at Temp 56.8 H (41-51) POC VBG pO2 36 (25-40) POC VBG HCO3 32.5 H (24-28) POC VBG Total CO2 34.0 H (25-29) POC Venous O2 Sat 65.0 (40-70) POC VBG Base Excess 7.0 H* (-2-2) VBG Lactic Acid 4.1 H* (0.5-2) POC Sodium 139 (133-145) POC Potassium 4.1 (3.3-5.1) POC Chloride 96 (96-108) POC Total CO2 31.0 H (22-30) POC BUN 22 H (6-20) POC Creatinine 1.2 (0.6-1.2) POC Glucose 117 H (70-105) POC WB Ioniz Calcium 1.10 L (1.16-1.32) C-Reactive Protein (0.03-0.80) mg/dL NT-Pro-B Natriuret Pep (<450.0) pg/mL Procalcitonin (<0.10) ng/mL POC Troponin I (0.00-0.08) 05/05/22 Range/Units 09:23 WBC (4.5-11.0) K/mcL RBC (3.59-5.38) M/mcL Hgb (11.2-15.7) g/dL Hct (34.1-44.9) % POC Hct (36-48) MCV (80.0-100.0) fL MCH (26.0-34.0) pg MCHC (31.0-36.0) g/dL RDW (11.5-14.5) % Plt Count (140-440) K/mcL MPV (8.8-12.5) fL Immature Gran % (Auto) (0.0-0.5) % Neut % (Auto) (38.0-78.0) % Lymph % (Auto) (15.5-49.0) % Wilson % (Auto) (1.0-12.0) % Eos % (Auto) (0.0-7.0) % Baso % (Auto) (0.0-2.0) % Lymph # (Auto) (1.50-4.80) K/mcL Wilson # (Auto) (0.10-0.90) K/mcL Eos # (Auto) (0.00-0.70) K/mcL Baso # (Auto) (0.00-0.30) K/mcL Immature Gran # (0.00-0.05) K/mcl Absolute Neutrophils (1.80-8.00) K/mcL POC VBG pH (7.32-7.42) POC VBG pCO2 at Temp (41-51) POC VBG pO2 (25-40) POC VBG HCO3 (24-28) POC VBG Total CO2 (25-29) POC Venous O2 Sat (40-70) POC VBG Base Excess (-2-2) VBG Lactic Acid (0.5-2) POC Sodium (133-145) POC Potassium (3.3-5.1) POC Chloride (96-108) POC Total CO2 (22-30) POC BUN (6-20) POC Creatinine (0.6-1.2) POC Glucose (70-105) POC WB Ioniz Calcium (1.16-1.32) C-Reactive Protein (0.03-0.80) mg/dL NT-Pro-B Natriuret Pep (<450.0) pg/mL Procalcitonin (<0.10) ng/mL POC Troponin I < 0.02 (0.00-0.08) ED POC Tests ED POC Tests: BERTA - Influenza A Negative BERTA - Influenza B Positive BERTA - SARS Antigen Positive Radiology Data Radiology results reviewed: Yes I reviewed the patient's radiology results. Radiology results narrative: Chest x-ray obtained with image reviewed myself, I agree with radiologist interpretation EKG Data EKG #1: EKG attestation: Yes I reviewed and interpreted this EKG. EKG shows normal: sinus rhythm Rate: tachycardia Rhythm: NSR Cyclone/QRS: normal P waves: LAE Heart block present: None ST segment elevation in: None ST segment depression in: None QTc: normal QRS morphology: Present normal Interpretation: no acute changes Core Measures AMI Core Measures Followed: Yes Discharge Plan Patient/Caregiver Discharge Instructions Pt seen by TRANSPLANTER/PA only: No Clinical Impression: Acute and chronic respiratory failure with hypoxia, COVID-19 virus infection, Sepsis, viral, Influenza B Patient Disposition: Xfer As Outpt/Obs ([facility]) Condition: Fair Discharge Date/Time: 05/05/22 12:02
--- NOTE | 2022-05-05 09:23 | XRay Report ---
CLINICAL INFORMATION: Shortness of breath COMPARISON: 10/16/2021 TECHNIQUE: Portable FINDINGS: Moderate cardiomegaly is unchanged. Mediastinum is unremarkable. Pulmonary vessels are mildly distended and there is mild interstitial edema throughout both lungs likely. Moderate patchy right and small patchy left basilar infiltrates with small bilateral pleural effusions noted. IMPRESSION: Mild/moderate CHF Moderate right and small left basilar infiltrates. Aspiration versus infection Interpreted and Authenticated by: Aniceto White 05/05/22
[2022-05-05] MEDS ORDERED: FUROSEMIDE 40 MG/4 ML VIAL IV ONE (09:32)
[2022-05-05] MEDS ORDERED: 0.9 % SODIUM CHLORIDE 1,000 ML IV ONE (09:32)
[2022-05-05] MEDS ORDERED: AZITHROMYCIN 500 MG in DEXTROSE 5% IN WATER 250 ML IV ONE (09:34)
[2022-05-05] MEDS ORDERED: cefTRIAXone 2 GM in DEXTROSE 5% IN WATER 50 ML IV ONE (09:34)
[2022-05-05] MEDS ORDERED: 0.9 % SODIUM CHLORIDE 500 ML IV ONE (09:34)
[2022-05-05 09:37] LABS: POC Calcium, Ionized 1.1 (1.16-1.32); POC Creatinine 1.2 (0.6-1.2); POC Potassium 4.1 (3.3-5.1)
[2022-05-05 09:53] LABS: Basophils # (Auto) 0.05 K/mcL (0.00-0.30); Basophils % (Auto) 0.8 % (0.0-2.0); Eosinophils # (Auto) 0.11 K/mcL (0.00-0.70); Eosinophils % (Auto) 1.7 % (0.0-7.0); Hematocrit 36.8 % (34.1-44.9); Hemoglobin 11.2 g/dL (11.2-15.7); Lymphocytes # (Auto) 0.74 K/mcL (1.50-4.80); Lymphocytes % (Auto) 11.5 % (15.5-49.0); Mean Cell Volume 109.2 fL (80.0-100.0); Mean Corpuscular HGB Conc 30.4 g/dL (31.0-36.0); Mean Platelet Volume 10.7 fL (8.8-12.5); Monocytes # (Auto) 0.39 K/mcL (0.10-0.90); Monocytes % (Auto) 6.1 % (1.0-12.0); Platelet Count 167 K/mcL (140-440); RBC 3.37 M/mcL (3.59-5.38); Red Cell Distribution Width 15.9 % (11.5-14.5); WBC 6.4 K/mcL (4.5-11.0)
[2022-05-05] MEDS ORDERED: FUROSEMIDE 20 MG/2 ML VIAL IV ONE (10:19)
--- NOTE | 2022-05-05 10:50 | Internal Med Progress Note ---
SUBJECTIVE Subjective Patient information: Note initiated : 05/05/22 at 10:50 am Service Date, if different from initiated Date: [] Patient: George Ma 81 y/o F admitted on for pneumonia. Chief Complaint: [] Constitutional Vitals: Vital Signs Temp Pulse Resp BP Pulse Ox O2 Del Method O2 Flow Rate 98.7 F 105 H 27 H 179/107 94 10 05/05/22 08:54 05/05/22 10:41 05/05/22 10:01 05/05/22 10:01 05/05/22 10:41 05/05/22 09:46 05/05/22 09:46 Period Temp Pulse Resp BP Sys/Figueredo Pulse Ox O2 Del Method O2 Flow Rate Last 24 Hr 98.7 F 94-106 27-38 157-190/99-117 66-98 Aerosol Mask-Room Air 5-15 Intake and Output 05/04/22 05/05/22 05/05/22 19:59 03:59 11:59 Intake Total 50 Balance 50 Weight 104.054 kg Patient Weight 05/06/22 03:59 Weight 104.054 kg Intake & Output: Intake & Output 05/04/22 05/05/22 05/05/22 19:59 03:59 11:59 Intake Total 50 Balance 50 Weight 104.054 kg Intake: IV 50 Rocephin 2 gm In Dextrose 5% in 50 Water 50 ml @ 100 mls/hr IV ONCE ONE Rx#:[id number] OBJ DATA Labs CBC & Chem 7: 05/05/22 09:03 Labs: Abnormal Lab Results 05/05/22 05/05/22 05/05/22 09:21 09:08 09:03 RBC 3.37 L MCV 109.2 H MCHC 30.4 L RDW 15.9 H Immature Gran % (Auto) 0.9 H Neut % (Auto) 79.0 H Lymph % (Auto) 11.5 L Lymph # (Auto) 0.74 L Immature Gran # 0.06 H POC VBG pCO2 at Temp 56.8 H POC VBG HCO3 32.5 H POC VBG Total CO2 34.0 H POC VBG Base Excess 7.0 H* VBG Lactic Acid 4.1 H* POC Total CO2 31.0 H POC BUN 22 H POC Glucose 117 H POC WB Ioniz Calcium 1.10 L NT-Pro-B Natriuret Pep Procalcitonin 05/05/22 05/05/22 09:02 09:02 RBC MCV MCHC RDW Immature Gran % (Auto) Neut % (Auto) Lymph % (Auto) Lymph # (Auto) Immature Gran # POC VBG pCO2 at Temp POC VBG HCO3 POC VBG Total CO2 POC VBG Base Excess VBG Lactic Acid POC Total CO2 POC BUN POC Glucose POC WB Ioniz Calcium NT-Pro-B Natriuret Pep 4771.0 H Procalcitonin 0.11 H A/P Time Spent With Patient Time: Total time spent is greater than 50% in coordination of care (as documented) at patient's floor/unit and/or counseling patient:
--- NOTE | 2022-05-05 10:57 | Internal Med History&Physical ---
HPI History of Present Illness Patient information: Note initiated : 05/05/22 at 10:57 am Service Date, if different from initiated Date: [] Patient: George Ma 81 y/o F admitted on for pneumonia. Chief Complaint: [] History of present illness: Ms. Ma is a 81 year old F Presents today with severe shortness of breath for the past 2-3 days progressing. Has had worsening cough productive of white clear sputum. She also complains of increasing lower extremity edema over the past month. Patient wears baseline 5 to 6 L of nasal cannula for pulmonary fibrosis. Follows with Dr. Alaniz. Upon arrival she had sats in the 60s. She was placed on high percent nonrebreather at 15 L with subsequent wean down to 10 L. She is tachycardic in the low 100s and tachypneic in the 30s. Hypertensive initially. Lactic acid initially was 4.1. pH normal limits. Troponin negative. Elevated proBNP. There was concern for CHF in the ED and so she was given Lasix. Chest x-ray with bilateral interstitial edema and some moderate patchy right and left basal infiltrates with small bilateral pleural effusions. Patient also found to be COVID-positive and influenza B positive in ED. she has had the flu vaccine and the COVID-vaccine but not to be still because she had COVID in the spring. Patient was also started on Solu-Medrol and empiric antibiotics in the ED. Patient states she is a DNR and does not want to be transferred. Patient states that if she declines she just wants to be made comfortable. Review of Systems: Pertinent positives as above. Denies headache/fever/chills/nausea/vomiting/chest or abdominal pain/diarrhea. Remaining 10 point review of system reviewed negative PFSH PFSH All Active Problems (Updated 05/05/22 @ 10:03 by Ferny Atwood DO) Acute and chronic respiratory failure with hypoxia (Acute) COVID-19 virus infection (Acute) Sepsis, viral (Acute) Influenza B (Acute) Anxiety (Acute) Insomnia (Acute) Anxiety (Acute) Bilateral chronic knee pain (Acute) Restrictive lung disease (Chronic) Post covid-19 condition, unspecified (Acute) Acute congestive heart failure (Acute) Acute pneumonia (Acute) CHF (congestive heart failure) (Acute) Afib (Chronic) Dyspnea (Acute) GREGORY (obstructive sleep apnea) (Chronic) Pulmonary fibrosis (Chronic) Acute bronchitis (Chronic) Deep vein thrombosis of lower extremity (Chronic) Asymptomatic hypertensive urgency (Acute) Fever (Acute) Obesity (BMI 30.0-34.9) (Chronic) Hypothyroidism, acquired (Chronic) Asthma, mild intermittent (Chronic) Hypertension, essential (Chronic) Sinusitis (Chronic) Mild congestive heart failure (Chronic) Insulin resistance syndrome (Chronic) Snoring (Chronic) Chronic rhinitis (Chronic) Secondary pulmonary arterial hypertension (Chronic) Abnormal pulmonary function test (Chronic) Asthma (Chronic) Left ventricular hypertrophy (Chronic) Secondary pulmonary hypertension (Chronic) Hyperplastic colonic polyp (Chronic) Bilateral primary osteoarthritis of knee (Chronic) Bilateral knee pain (Acute) History of varicose veins (Chronic) History of deep venous thrombosis (Chronic) Decreased circulation (Chronic) Multiple joint pain (Chronic) Chronic pulmonary congestion (Chronic) CHF (congestive heart failure) (Chronic) Encounter for long-term (current) use of medications (Chronic) Hyperlipidemia (Chronic) Skin rash (Chronic) Skin lesion (Chronic) Allergic rhinitis (Chronic) Stress (Chronic) Hypothyroidism (Chronic) Anxiety and depression (Chronic) Special screening for malignant neoplasms, colon (Chronic) Weight gain (Chronic) Multiple nevi (Chronic) Left shoulder pain (Chronic) Fatigue (Chronic) Screening for malignant neoplasm of cervix (Chronic) Bone spur (Chronic) Keratosis (Chronic) History of bronchitis (Chronic ~2017) Deep vein thrombosis (DVT) of right lower extremity (Chronic ~05/2017) Insomnia, unspecified (Acute) Right lower quadrant pain (Acute) Hypertension, essential (Acute) Constipation (Acute) Stress (Acute) Hyperlipidemia (Acute) Lumbar radiculopathy (Acute) Stage III chronic kidney disease (Acute) Skin mole (Acute) Hypersomnia (Chronic) Nocturnal hypoxia (Chronic) Elevated antinuclear antibody (KOTA) level (Acute) Fluid retention (Acute) Medical History Abnormal pulmonary function test Acute bronchitis Allergic rhinitis Anxiety and depression Asthma Asthma, mild intermittent Bilateral knee pain Bilateral primary osteoarthritis of knee Bone spur CHF (congestive heart failure) Chronic pulmonary congestion Chronic rhinitis Decreased circulation Deep vein thrombosis (DVT) of right lower extremity (~05/2017) Deep vein thrombosis of lower extremity Elevated antinuclear antibody (KOTA) level Encounter for long-term (current) use of medications Fatigue History of bronchitis (~2017) History of deep venous thrombosis History of varicose veins Hyperlipidemia Hyperplastic colonic polyp Hypersomnia Hypertension, essential Hypothyroidism Hypothyroidism, acquired Insulin resistance syndrome Keratosis Left shoulder pain Left ventricular hypertrophy Mild congestive heart failure Multiple joint pain Multiple nevi Nocturnal hypoxia Obesity (BMI 30.0-34.9) GREGORY (obstructive sleep apnea) Restrictive lung disease Screening for malignant neoplasm of cervix Secondary pulmonary arterial hypertension Secondary pulmonary hypertension Sinusitis Skin lesion Skin rash Snoring Special screening for malignant neoplasms, colon Stress Weight gain Surgical History History of colonoscopy (03/31/18) performed by Dr. Frye History of skin cancer (~07/2013) on face History of tonsillectomy Family History Mother , Age 86 Liver cancer Daughter Asthma Unknown Hypertension Father , Age 95 No problems noted. Social History occupational status: retired smoking status: Former smoker substance use type: does not use MEDS/ALLERGIES Home Medications and Allergies Home Medications Medication Instructions Recorded Confirmed Type montelukast 10 mg tablet See Rx Instructions .Route 02/06/21 04/06/22 Rx .COMPLEX #90 tabs Handicap Placard #1 ea 04/18/21 04/06/22 Rx ipratropium 0.5 mg-albuterol 3 mg 3 ml inhalation TID 30 days #270 mL 10/20/21 04/06/22 Rx (2.5 mg base)/3 mL nebulization soln levothyroxine 150 mcg tablet 137 mcg PO QDAY #90 tabs 10/27/21 04/06/22 Rx (Synthroid) tiotropium 2.5 mcg-olodaterol 2.5 2 puff inhalation QDAY #4 grams 11/25/21 04/06/22 Rx mcg/actuation mist for inhalation (Stiolto Respimat) furosemide 20 mg tablet 40 mg PO QDAY FLUID RETENTION 12/04/21 04/06/22 History liothyronine 5 mcg tablet 5 mcg PO QDAY #90 tabs 12/04/21 04/06/22 Rx losartan 100 mg tablet 100 mg PO QDAY 12/04/21 04/06/22 History albuterol sulfate 90 mcg/actuation 2 puff inhalation QID #18 grams 03/31/22 04/06/22 Rx aerosol inhaler (Ventolin HFA) apixaban 5 mg tablet (Eliquis) 5 mg PO QDAY 04/06/22 History metoprolol succinate 25 mg 50 mg PO .Q HS #90 tabs 04/06/22 04/06/22 Rx tablet,extended release 24 hr sertraline 50 mg tablet 50 mg PO QDAY #30 tabs 04/06/22 04/06/22 Rx spironolactone 25 mg tablet 25 mg PO QDAY #30 tabs 04/06/22 04/06/22 Rx trazodone 50 mg tablet 25 mg PO QDAY #30 tabs 04/06/22 04/06/22 Rx fluticasone fur. 200 mcg-umeclid 1 inh inhalation QDAY #60 ea 05/04/22 Rx 62.5 mcg-vilant 25 mcg inhalat.powder (Trelegy Ellipta) Allergies Allergy/AdvReac Type Severity Reaction Status Date / Time codeine AdvReac Mild Confusion Verified 04/06/22 15:23 meperidine [From Demerol] AdvReac Mild Vomiting Verified 04/06/22 15:23 wool AdvReac Mild itch Verified 04/06/22 15:23 EXAM Constitutional Vitals: Temp Pulse Resp BP Pulse Ox O2 Del Method O2 Flow Rate 98.7 F 105 H 27 H 179/107 94 10 05/05/22 08:54 05/05/22 10:41 05/05/22 10:01 05/05/22 10:01 05/05/22 10:41 05/05/22 09:46 05/05/22 09:46 Exam: General: Alert, Awake, No acute Distress, obese Eyes/N/T: EOMI, PERRL, Head/Neck: neck supple, normocephalic atraumatic CV: irreg, No murmurs, normal s1/s2 Pulm: rales b/l, no wheezing Abd: soft, nontender, +BS x4 Ext: no clubbing/cyanosis, b/l LE edema Neuro: Alert, no focal deficits, moves all extremities, CN 2-12 grossly intact, sensations intact b/l upper/lower Skin: warm/dry DATA Data Completed and Pending Labs: Labs from last 24 hours 12/05/05/22 05/05/22 09:23 09:21 09:08 WBC RBC Hgb Hct POC Hct 38.0 MCV MCH MCHC RDW Plt Count MPV Immature Gran % (Auto) Neut % (Auto) Lymph % (Auto) Kleberg % (Auto) Eos % (Auto) Baso % (Auto) Lymph # (Auto) Kleberg # (Auto) Eos # (Auto) Baso # (Auto) Immature Gran # Absolute Neutrophils POC VBG pH 7.37 POC VBG pCO2 at Temp 56.8 H POC VBG pO2 36 POC VBG HCO3 32.5 H POC VBG Total CO2 34.0 H POC Venous O2 Sat 65.0 POC VBG Base Excess 7.0 H* VBG Lactic Acid 4.1 H* POC Sodium 139 POC Potassium 4.1 POC Chloride 96 POC Total CO2 31.0 H POC BUN 22 H POC Creatinine 1.2 POC Glucose 117 H POC WB Ioniz Calcium 1.10 L NT-Pro-B Natriuret Pep Procalcitonin POC Troponin I < 0.02 05/05/22 05/05/22 05/05/22 09:03 09:02 09:02 WBC 6.4 RBC 3.37 L Hgb 11.2 Hct 36.8 POC Hct MCV 109.2 H MCH 33.2 MCHC 30.4 L RDW 15.9 H Plt Count 167 MPV 10.7 Immature Gran % (Auto) 0.9 H Neut % (Auto) 79.0 H Lymph % (Auto) 11.5 L Kleberg % (Auto) 6.1 Eos % (Auto) 1.7 Baso % (Auto) 0.8 Lymph # (Auto) 0.74 L Kleberg # (Auto) 0.39 Eos # (Auto) 0.11 Baso # (Auto) 0.05 Immature Gran # 0.06 H Absolute Neutrophils 5.09 POC VBG pH POC VBG pCO2 at Temp POC VBG pO2 POC VBG HCO3 POC VBG Total CO2 POC Venous O2 Sat POC VBG Base Excess VBG Lactic Acid POC Sodium POC Potassium POC Chloride POC Total CO2 POC BUN POC Creatinine POC Glucose POC WB Ioniz Calcium NT-Pro-B Natriuret Pep 4771.0 H Procalcitonin 0.11 H POC Troponin I A/P Narrative A/P Narrative: A: *Likely acute on chronic diastolic CHF: *COVID/FLU B(+) PNA: *Acute on chronic hypoxic/hypercapnic respiratory failure: 2/2 chf and likely viral PNA -non Nonrebreather in the ED *Hypertensive urgency: *pulmonary fibrosis (5-6L NC@home): *GREGORY on CPAP: *Permanent AFib: *Obesity: BMI 36 *Hypothyroidism: *Depression/anxiety: *Goals of care: Continue current management, patient declines and she wishes to transition to comfort P: -Bipap prn, O2 supp wean as able, no intubation -Dexamethasone/remdesivir, tamilfu -Empric Abx, pending SC/BC -IS/Acapella, prn nebs, RT -IV lasix -proning as able, oob to chair, mobilization -check pct/man diff -f/u renal fxn -cont home ARB/BB, prn IV -cont home asa/eliquis/BB -home cpap - -PT/OT -Home medication reconciliation -CM for placement needs -ppx: Eliquis DNR/DNI Time Spent With Patient Time: Total time spent is greater than 50% in coordination of care (as documented) at patient's floor/unit and/or counseling patient: Critical Care Time: Yes Total Critical Care Time: 60
[2022-05-05] MEDS ORDERED: METOPROLOL TARTRATE 5 MG/5 ML VIAL IV PRN (12:12)
[2022-05-05] MEDS ORDERED: LABETALOL 5 MG/ML ML IV PRN (12:12)
[2022-05-05] MEDS ORDERED: ONDANSETRON 4 MG/2 ML VIAL IV PRN (12:12)
[2022-05-05] MEDS ORDERED: IPRATROPIUM/ALBUTEROL 3 ML AMPUL.NEB NEB PRN (12:12)
[2022-05-05] MEDS ORDERED: FLUMAZENIL 0.1 MG/ML ML IV ONE (12:14)
[2022-05-05 12:24] LABS: Anisocytosis 1+ (None Seen); Band Neutrophils % 2 % (0-10); Lymphocytes % 17 % (15-49); Monocytes % (Manual) 5 % (1-12); Nucleated Red Blood Cells 1 % (0-0); Ovalocytes FEW (None Seen); Platelet Estimate NORMAL (Normal); Polychromasia FEW (None Seen); RBC Morphology ABNORMAL (Normal); Reactive Lymphocytes 2 % (0-2); Segmented Neutrophils % 74 % (38-78)
[2022-05-05] MEDS ORDERED: OSELTAMIVIR PHOSPHATE 75 MG CAPSULE PO SCH (12:30)
[2022-05-05] MEDS ORDERED: REMDESIVIR 200 MG in 0.9 % SODIUM CHLORIDE 250 ML IV SCH (13:00)
[2022-05-05] MEDS: 0.9 % SODIUM CHLORIDE 10 ML SYRINGE IV SCH ×2 (13:35→21:02)
[2022-05-05] MEDS: FUROSEMIDE 40 MG/4 ML VIAL IV SCH ×2 (13:35→21:01)
[2022-05-05 13:58] LABS: Appearance,Urine CLEAR (Clear); Bilirubin,Urine NEGATIVE (Negative); Color,Urine LT. YELLOW; Culture Indicated,Urine No; Glucose,Urine (UA) NEGATIVE (Negative); Ketones,Urine NEGATIVE (Negative); Leukocyte Esterase,Urine NEGATIVE /uL (Negative); Nitrate,Urine NEGATIVE (Negative); PH,Urine 5.5 (5.0-9.0); Protein,Urine NEGATIVE (Negative); Urine Blood TRACE-LYSED ery/mcL (Negative); Urine Hyaline Cast 3 /lph (0-2); Urine RBC < 1 /hpf (0-3); Urine Squamous Epithelial Cell 1 /hpf (0-4); Urine WBC 1 /hpf (0-4); Urobilinogen,Urine Normal
[2022-05-05] MEDS: hydrALAZINE 20 MG/ML VIAL IV PRN ×2 (15:13→23:19)
[2022-05-05] MEDS ORDERED: BENZONATATE 100 MG CAPSULE PO PRN (16:14)
[2022-05-05] MEDS: guaiFENesin/DEXTROMETHORPHAN ORAL SOL PO PRN ×2 (16:41→23:19)
[2022-05-05] MEDS: traZODone HCL 50 MG TABLET PO SCH (21:01)
[2022-05-05] MEDS: APIXABAN 5 MG TABLET PO SCH (21:01)
[2022-05-05] MEDS: OSELTAMIVIR PHOSPHATE 75 MG CAPSULE PO SCH (21:01)
[2022-05-05] MEDS: METOPROLOL SUCCINATE 25 MG TAB.XL.24H PO SCH (21:01)
[2022-05-05] MEDS: DOCUSATE SODIUM 100 MG CAPSULE PO SCH ×2 (21:01→21:27)
[2022-05-05] MEDS: BUDESONIDE 0.5 MG/2 ML AMPUL.NEB NEB SCH (21:20)
[2022-05-05] MEDS: ALBUTEROL SULFATE 60 PUFF INHALER INH SCH (21:26)
[2022-05-06] MEDS: 0.9 % SODIUM CHLORIDE 10 ML SYRINGE IV SCH ×3 (05:47→22:00)
[2022-05-06] MEDS: FUROSEMIDE 40 MG/4 ML VIAL IV SCH ×3 (05:47→20:16)
[2022-05-06 06:56] LABS: Hematocrit 33.3 % (34.1-44.9); Hemoglobin 10.3 g/dL (11.2-15.7); Mean Cell Volume 105.4 fL (80.0-100.0); Mean Corpuscular HGB Conc 30.9 g/dL (31.0-36.0); Mean Platelet Volume 10.3 fL (8.8-12.5); Platelet Count 143 K/mcL (140-440); RBC 3.16 M/mcL (3.59-5.38); Red Cell Distribution Width 15.5 % (11.5-14.5); WBC 4.4 K/mcL (4.5-11.0)
[2022-05-06 07:31] LABS: ALT/SGPT 9 U/L (<40); AST/SGOT 21 U/L (<32); Albumin 3.8 gm/dL (3.2-5.2); Albumin/Globulin Ratio 0.9 (1.0-2.3); Alkaline Phosphatase 51 U/L (39-117); Bilirubin,Direct 0.9 mg/dL (<0.3); Bilirubin,Total 1.6 mg/dL (0.1-1.0); Blood Urea Nitrogen 23 mg/dL (8-23); Calcium 8.6 mg/dL (8.6-10.4); Carbon Dioxide 35 mmol/L (22-30); Chloride 89 mmol/L (96-108); Glomerular Filtration Rate 39; Glucose 119 mg/dL (70-105); Lactate Dehydrogenase 295 U/L (135-225); Phosphorous 3.1 mg/dL (2.5-4.5); Triglycerides 62 mg/dL (<150); Uric Acid 9.8 mg/dL (2.5-8.0)
[2022-05-06] MEDS: LEVOTHYROXINE 150 MCG TABLET PO SCH (07:33)
[2022-05-06] MEDS: PANTOPRAZOLE 40 MG TABLET PO SCH (07:33)
[2022-05-06] MEDS: DEXAMETHASONE 4 MG TABLET PO SCH (08:09)
[2022-05-06] MEDS: SERTRALINE 50 MG TABLET PO SCH (08:09)
[2022-05-06] MEDS: OSELTAMIVIR PHOSPHATE 75 MG CAPSULE PO SCH ×2 (08:09→20:16)
[2022-05-06] MEDS: LOSARTAN 50 MG TABLET PO SCH (08:09)
[2022-05-06] MEDS: AZITHROMYCIN 250 MG TABLET PO SCH (08:09)
[2022-05-06] MEDS: MONTELUKAST 10 MG TABLET PO SCH (08:09)
[2022-05-06] MEDS: APIXABAN 5 MG TABLET PO SCH ×2 (08:09→20:16)
[2022-05-06] MEDS: DOCUSATE SODIUM 100 MG CAPSULE PO SCH ×3 (08:10→20:15)
[2022-05-06] MEDS: FLUTICASONE UMECLIDIN VILANTER INH SCH (08:10)
[2022-05-06] MEDS: DILTIAZEM 120 MG CAP.XL.24H PO SCH (08:10)
[2022-05-06] MEDS: SPIRONOLACTONE 25 MG TABLET PO SCH (08:10)
[2022-05-06] MEDS: LIOTHYRONINE 5 MCG TABLET PO SCH ×2 (08:25→08:26)
[2022-05-06] MEDS ORDERED: AZITHROMYCIN 500 MG in DEXTROSE 5% IN WATER 250 ML IV SCH (09:00)
[2022-05-06] MEDS ORDERED: REMDESIVIR 100 MG in 0.9 % SODIUM CHLORIDE 250 ML IV SCH (09:00)
[2022-05-06] MEDS ORDERED: cefTRIAXone 2 GM in DEXTROSE 5% IN WATER 50 ML IV SCH (09:00)
[2022-05-06] MEDS: guaiFENesin/DEXTROMETHORPHAN ORAL SOL PO PRN (09:15)
[2022-05-06] MEDS: ALBUTEROL SULFATE 60 PUFF INHALER INH SCH ×4 (09:30→20:16)
[2022-05-06] MEDS: ACETAMINOPHEN 325 MG TABLET PO PRN ×2 (10:25→21:25)
[2022-05-06] MEDS: BUDESONIDE 0.5 MG/2 ML AMPUL.NEB NEB SCH ×2 (10:50→21:15)
--- NOTE | 2022-05-06 11:41 | Cat Scan Report ---
CLINICAL INFORMATION: Trauma COMPARISON: None. TECHNIQUE: 2.5 mm helical slices were obtained in the skull base to vertex. Following reconstruction, axial reformatted images were reviewed at bone and parenchymal windows. The exam was performed using radiation dose optimization techniques including, but not limited to, automated exposure control, adjustment of the mA and/or kV according to patient size and use of iterative reconstruction technique. FINDINGS: The ventricles, sulci, fissures, and cisterns are symmetrically enlarged compatible with mild age-related atrophy. No extra-axial fluid collections are identified. Mild patchy chronic ischemic changes, in the deep cerebral white matter, are expected for age. There is no hemorrhage, mass effect, or edema. Bone windows show no osseous abnormality. IMPRESSION: Mild atrophy and chronic ischemic changes in the deep cerebral white matter-expected for age. No acute findings Interpreted and Authenticated by: Aniceto White 05/06/22
--- NOTE | 2022-05-06 17:16 | Internal Med Progress Note ---
SUBJECTIVE Subjective Patient information: Note initiated : 05/06/22 at 5:16 pm Service Date, if different from initiated Date: Patient: George Ma 81 y/o F admitted on 05/05/22 for pneumonia. Interval history: Patient is feeling much better. Patient currently on 8 L high heated flow. She is awake alert oriented X3. She denies chest pain shortness of breath nausea vomiting fever chills. She seems comfortable and talks full sentences Pertinent ROS: Except as documented all systems reviewed and negative Constitutional Vitals: Vital Signs Temp Pulse Resp BP Pulse Ox O2 Del Method O2 Flow Rate 97.4 F 87 20 122/75 94 9 05/06/22 16:01 05/06/22 10:50 05/06/22 10:50 05/06/22 16:01 05/06/22 16:01 05/06/22 16:01 05/06/22 16:01 Period Temp Pulse Resp BP Sys/Figueredo Pulse Ox O2 Del Method O2 Flow Rate Last 24 Hr 97 F-97.9 F 84-87 16-20 112-181/66-127 86-100 High Flow Nasal Cannula-Trach Mask, High Flow Nasal Cannula 6-9 Intake and Output 05/06/22 05/06/22 05/06/22 03:59 11:59 19:59 Intake Total 780 500 Output Total 1075 475 725 Balance -1075 305 -225 Weight 105.007 kg 105.007 kg Patient Weight 05/07/22 03:59 Weight 105.007 kg Intake & Output: Intake & Output 05/06/22 05/06/22 05/06/22 03:59 11:59 19:59 Intake Total 780 500 Output Total 1075 475 725 Balance -1075 305 -225 Weight 105.007 kg 105.007 kg Intake: IV 300 Veklury 100 mg In Sodium 250 Chloride 0.9% 250 ml @ 500 mls/ hr IV Q24H [facility] Rx#:[id number] Rocephin 2 gm In Dextrose 5% in 50 Water 50 ml @ 100 mls/hr IV Q24H KARLA Rx#:[id number] Oral 480 500 Output: Void Amount 1075 475 725 Other: Urine Appearance Clear Clear Clear Sediment Urine Color Yellow Dark Yellow Yellow Pale Urine Odor Normal # Voids 0 Exam: General: Pleasant elderly female, obese with BMI 36, alert, Awake, No acute Distress, obese Eyes/N/T: EOMI, moist mucous membrane Head/Neck: neck supple, no JVD CV: irreg irreg, No murmurs, Pulm: Scattered bilateral crackles. No wheezing. No use of accessory muscles of respiration Abd: soft, nontender, +BS Ext: no clubbing/cyanosis, trace b/l LE edema Neuro: Alert, no focal deficits, moves all extremities, Skin: warm/dry OBJ DATA Labs CBC & Chem 7: 05/06/22 05:14 05/06/22 05:14 Labs: Abnormal Lab Results 05/06/22 05/06/22 05/05/22 05:14 05:14 12:40 WBC 4.4 L RBC 3.16 L Hgb 10.3 L Hct 33.3 L MCV 105.4 H MCHC 30.9 L RDW 15.5 H Immature Gran % (Auto) Neut % (Auto) Lymph % (Auto) Lymph # (Auto) Immature Gran # Nucleated RBCs RBC Morphology Polychromasia Anisocytosis Ovalocytes POC VBG pCO2 at Temp POC VBG HCO3 POC VBG Total CO2 POC VBG Base Excess VBG Lactic Acid Chloride 89 L Carbon Dioxide 35 H POC Total CO2 POC BUN Creatinine 1.3 H Glucose 119 H POC Glucose Uric Acid 9.8 H POC WB Ioniz Calcium Total Bilirubin 1.6 H Direct Bilirubin 0.9 H Lactate Dehydrogenase 295 H C-Reactive Protein NT-Pro-B Natriuret Pep Globulin 4.0 H Albumin/Globulin Ratio 0.9 L Procalcitonin Urine Occult Blood Trace-lysed A Hyaline Casts 3 H 05/05/22 05/05/22 05/05/22 12:32 09:21 09:08 WBC RBC Hgb Hct MCV MCHC RDW Immature Gran % (Auto) Neut % (Auto) Lymph % (Auto) Lymph # (Auto) Immature Gran # Nucleated RBCs RBC Morphology Polychromasia Anisocytosis Ovalocytes POC VBG pCO2 at Temp 66.1 H* 56.8 H POC VBG HCO3 34.2 H 32.5 H POC VBG Total CO2 36.0 H 34.0 H POC VBG Base Excess 8.0 H* 7.0 H* VBG Lactic Acid 4.1 H* Chloride Carbon Dioxide POC Total CO2 31.0 H POC BUN 22 H Creatinine Glucose POC Glucose 117 H Uric Acid POC WB Ioniz Calcium 1.10 L Total Bilirubin Direct Bilirubin Lactate Dehydrogenase C-Reactive Protein NT-Pro-B Natriuret Pep Globulin Albumin/Globulin Ratio Procalcitonin Urine Occult Blood Hyaline Casts 05/05/22 05/05/22 05/05/22 09:03 09:02 09:02 WBC RBC 3.37 L Hgb Hct MCV 109.2 H MCHC 30.4 L RDW 15.9 H Immature Gran % (Auto) 0.9 H Neut % (Auto) 79.0 H Lymph % (Auto) 11.5 L Lymph # (Auto) 0.74 L Immature Gran # 0.06 H Nucleated RBCs 1 H RBC Morphology Abnormal A Polychromasia Few A Anisocytosis 1+ A Ovalocytes Few A POC VBG pCO2 at Temp POC VBG HCO3 POC VBG Total CO2 POC VBG Base Excess VBG Lactic Acid Chloride Carbon Dioxide POC Total CO2 POC BUN Creatinine Glucose POC Glucose Uric Acid POC WB Ioniz Calcium Total Bilirubin Direct Bilirubin Lactate Dehydrogenase C-Reactive Protein 4.30 H NT-Pro-B Natriuret Pep Globulin Albumin/Globulin Ratio Procalcitonin Urine Occult Blood Hyaline Casts 05/05/22 05/05/22 09:02 09:02 WBC RBC Hgb Hct MCV MCHC RDW Immature Gran % (Auto) Neut % (Auto) Lymph % (Auto) Lymph # (Auto) Immature Gran # Nucleated RBCs RBC Morphology Polychromasia Anisocytosis Ovalocytes POC VBG pCO2 at Temp POC VBG HCO3 POC VBG Total CO2 POC VBG Base Excess VBG Lactic Acid Chloride Carbon Dioxide POC Total CO2 POC BUN Creatinine Glucose POC Glucose Uric Acid POC WB Ioniz Calcium Total Bilirubin Direct Bilirubin Lactate Dehydrogenase C-Reactive Protein NT-Pro-B Natriuret Pep 4771.0 H Globulin Albumin/Globulin Ratio Procalcitonin 0.11 H Urine Occult Blood Hyaline Casts Meds: Medications Acetaminophen (Acetaminophen 325 Mg Tablet) 650 mg PO Q4-6HP PRN; Protocol PRN Reason: Per Pain Protocol/Fever > 101 Last Admin: 05/06/22 10:25 Dose: 650 mg Albuterol Sulfate (Albuterol Sulfate 60 Puff Inhaler) 2 puff INH QID [facility] Last Admin: 05/06/22 16:01 Dose: 2 puff Albuterol/Ipratropium (Ipratropium/Albuterol 3 Ml Ampul.Neb) 3 ml NEB Q4HP PRN PRN Reason: Shortness Of Breath Apixaban (Apixaban 5 Mg Tablet) 5 mg PO BID [facility] Last Admin: 05/06/22 08:09 Dose: 5 mg Azithromycin (Azithromycin 250 Mg Tablet) 500 mg PO DAILY [facility] Stop: 05/07/22 10:00 Last Admin: 05/06/22 08:09 Dose: 500 mg Benzonatate (Benzonatate 100 Mg Capsule) 100 mg PO TIDP PRN PRN Reason: Cough Budesonide (Budesonide 0.5 Mg/2 Ml Ampul.Neb) 0.5 mg NEB Q12 [facility] Last Admin: 05/06/22 10:50 Dose: 0.5 mg Dexamethasone (Dexamethasone 4 Mg Tablet) 6 mg PO DAILY [facility] Last Admin: 05/06/22 08:09 Dose: 6 mg Diltiazem HCl (Diltiazem 120 Mg Cap.Xl.24h) 120 mg PO QDAY [facility] Last Admin: 05/06/22 08:10 Dose: 120 mg Docusate Sodium (Docusate Sodium 100 Mg Capsule) 100 mg PO BID [facility] Last Admin: 05/06/22 08:27 Dose: Not Given Furosemide (Furosemide 40 Mg/4 Ml Vial) 40 mg IV Q8 [facility] Last Admin: 05/06/22 16:11 Dose: 40 mg Guaifenesin (Guaifenesin/Dextromethorphan Oral Kathy) 10 ml PO Q6HP PRN PRN Reason: Cough Last Admin: 05/06/22 09:15 Dose: 10 ml Hydralazine HCl (Hydralazine 20 Mg/Ml Vial) 0 mg IV Q2HP PRN PRN Reason: Hypertension Last Admin: 05/05/22 23:19 Dose: 20 mg Ceftriaxone Sodium 2 gm/ (Dextrose) 50 mls @ 100 mls/hr IV Q24H [facility]; Protocol Stop: 05/09/22 16:00 Last Infusion: 05/06/22 11:01 Dose: Infused REMDESIVIR 100 mg/ Sodium (Chloride) 250 mls @ 500 mls/hr IV Q24H [facility] Stop: 05/09/22 09:29 Last Infusion: 05/06/22 10:09 Dose: Infused Labetalol HCl (Labetalol 5 Mg/Ml Ml) 0 mg IV Q2HP PRN PRN Reason: Hypertension Levothyroxine Sodium (Levothyroxine 150 Mcg Tablet) 150 mcg PO 0730 [facility] Last Admin: 05/06/22 07:33 Dose: 150 mcg Liothyronine Sodium (Liothyronine 5 Mcg Tablet) 5 mcg PO 729 [facility] Last Admin: 05/06/22 08:26 Dose: Not Given Losartan Potassium (Losartan 50 Mg Tablet) 100 mg PO QDAY [facility] Last Admin: 05/06/22 08:09 Dose: 100 mg Metoprolol Succinate (Metoprolol Succinate 25 Mg Tab.Xl.24h) 50 mg PO HS [facility] Last Admin: 05/05/22 21:01 Dose: 50 mg Metoprolol Tartrate (Metoprolol Tartrate 5 Mg/5 Ml Vial) 5 mg IV Q2HP PRN PRN Reason: Tachyarrhythmias HR>110 Montelukast Sodium (Montelukast 10 Mg Tablet) 10 mg PO DAILY [facility] Last Admin: 05/06/22 08:09 Dose: 10 mg Ondansetron HCl (Ondansetron 4 Mg/2 Ml Vial) 4 mg IV Q4-6HP PRN PRN Reason: Nausea And Vomiting Oseltamivir Phosphate (Oseltamivir Phosphate 75 Mg Capsule) 75 mg PO BID [facility] Stop: 05/09/22 21:01 Last Admin: 05/06/22 08:09 Dose: 75 mg Pantoprazole Sodium (Pantoprazole 40 Mg Tablet) 40 mg PO QAMAC [facility] Last Admin: 05/06/22 07:33 Dose: 40 mg Fluticasone- Umeclidin-Vilanter [ Trelegy Ellipta 1 dose INH QDAY [facility] Last Admin: 05/06/22 08:10 Dose: Not Given Sertraline HCl (Sertraline 50 Mg Tablet) 25 mg PO QDAY [facility] Last Admin: 05/06/22 08:09 Dose: 25 mg Sodium Chloride (0.9 % Sodium Chloride 10 Ml Syringe) 10 ml IV Q8 [facility] Last Admin: 05/06/22 16:12 Dose: 10 ml Spironolactone (Spironolactone 25 Mg Tablet) 25 mg PO QDAY [facility] Last Admin: 05/06/22 08:10 Dose: 25 mg Trazodone HCl (Trazodone Hcl 50 Mg Tablet) 25 mg PO QHS [facility] Last Admin: 05/05/22 21:01 Dose: 25 mg Impressions Impression: CT scan of the head: No acute finding A/P Sepsis Sepsis Identified: No Narrative A/P Narrative: Pleasant 81 years old female with past medical history significant for pulmonary fibrosis, chronic hypoxic respiratory failure on 5 L admitted with following problem list: #Acute on chronic hypoxic respiratory failure #COVID 19 infection pneumonia, influenza B infection #Acute on chronic hypoxic/hypercapnic respiratory failure: 2/2 diastolic heart failure and and COVID 19 and influenza B -Blood culture negative -Continue dexamethasone. Discontinue remdesivir(no indication). Continue Tamiflu - Continue bronchodilator, Lasix, heated flow oxygen,IS/Acapella, prn nebs, RT -Consider CPAP if condition worsen. Self proning Goals of care: Continue current management, patient declines and she wishes to transition to comfor #Hypertensive urgency: -Resolved. Continue home beta-shaka, losartan and as needed hydralazine #Pulmonary fibrosis (5-6L NC@home): -Not on home steroid. #GREGORY on CPAP: Continue home CPAP if she has her own #Chronic atrial fibrillation -Continue beta-shaka, home Eliquis #Obesity: BMI 36 #Hypothyroidism: Continue home levothyroxine #Depression/anxiety: Continue home SSRI -CM for placement needs -DVT ppx: Eliquis DNR/DNI Time Spent With Patient Time: Total time spent is greater than 50% in coordination of care (as documented) at patient's floor/unit and/or counseling patient: Total time spent with greater than 50% in coordination of care (as documented) at patient's floor/unit and/or counseling patient:: 35 - 50 minutes Critical Care Time: No
[2022-05-06] MEDS: traZODone HCL 50 MG TABLET PO SCH (20:15)
[2022-05-06] MEDS: METOPROLOL SUCCINATE 25 MG TAB.XL.24H PO SCH (20:16)
[2022-05-06] MEDS ORDERED: cefTRIAXone 1 GM in DEXTROSE 5% IN WATER 50 ML IV SCH (20:37)
[2022-05-07] MEDS: FUROSEMIDE 40 MG/4 ML VIAL IV SCH (05:32)
[2022-05-07] MEDS: 0.9 % SODIUM CHLORIDE 10 ML SYRINGE IV SCH ×3 (05:32→21:17)
[2022-05-07 06:37] LABS: Basophils # (Auto) 0.01 K/mcL (0.00-0.30); Basophils % (Auto) 0.1 % (0.0-2.0); Eosinophils # (Auto) 0 K/mcL (0.00-0.70); Eosinophils % (Auto) 0 % (0.0-7.0); Hematocrit 34.7 % (34.1-44.9); Hemoglobin 10.8 g/dL (11.2-15.7); Lymphocytes # (Auto) 0.55 K/mcL (1.50-4.80); Lymphocytes % (Auto) 5.4 % (15.5-49.0); Mean Cell Volume 108.1 fL (80.0-100.0); Mean Corpuscular HGB Conc 31.1 g/dL (31.0-36.0); Mean Platelet Volume 10.8 fL (8.8-12.5); Monocytes # (Auto) 0.57 K/mcL (0.10-0.90); Monocytes % (Auto) 5.6 % (1.0-12.0); Neutrophils % (Auto) 88.3 % (38.0-78.0); Platelet Count 158 K/mcL (140-440); RBC 3.21 M/mcL (3.59-5.38); Red Cell Distribution Width 15.8 % (11.5-14.5); WBC 10.2 K/mcL (4.5-11.0)
[2022-05-07 07:17] LABS: CRP,High Sensitivity 48.6 mg/L (1.0-3.0)
[2022-05-07 07:25] LABS: ALT/SGPT 12 U/L (<40); AST/SGOT 26 U/L (<32); Albumin 3.6 gm/dL (3.2-5.2); Albumin/Globulin Ratio 0.9 (1.0-2.3); Alkaline Phosphatase 50 U/L (39-117); Bilirubin,Total 1.1 mg/dL (0.1-1.0); Blood Urea Nitrogen 31 mg/dL (8-23); Carbon Dioxide 42 mmol/L (22-30); Chloride 88 mmol/L (96-108); Glomerular Filtration Rate 28; Glucose 127 mg/dL (70-105)
[2022-05-07] MEDS: PANTOPRAZOLE 40 MG TABLET PO SCH (07:30)
[2022-05-07] MEDS: LEVOTHYROXINE 150 MCG TABLET PO SCH (07:30)
[2022-05-07] MEDS: LIOTHYRONINE 5 MCG TABLET PO SCH (07:30)
[2022-05-07] MEDS: FLUTICASONE UMECLIDIN VILANTER INH SCH (08:54)
[2022-05-07] MEDS: MONTELUKAST 10 MG TABLET PO SCH (09:07)
[2022-05-07] MEDS: APIXABAN 5 MG TABLET PO SCH ×2 (09:07→21:01)
[2022-05-07] MEDS: DILTIAZEM 120 MG CAP.XL.24H PO SCH (09:07)
[2022-05-07] MEDS: cefTRIAXone 1 GM VIAL IV SCH (09:07)
[2022-05-07] MEDS: DEXAMETHASONE 4 MG TABLET PO SCH (09:08)
[2022-05-07] MEDS: SERTRALINE 50 MG TABLET PO SCH (09:08)
[2022-05-07] MEDS: LOSARTAN 50 MG TABLET PO SCH (09:08)
[2022-05-07] MEDS: OSELTAMIVIR PHOSPHATE 75 MG CAPSULE PO SCH ×2 (09:08→21:01)
[2022-05-07] MEDS: SPIRONOLACTONE 25 MG TABLET PO SCH (09:08)
[2022-05-07] MEDS: AZITHROMYCIN 250 MG TABLET PO SCH (09:08)
[2022-05-07] MEDS: DOCUSATE SODIUM 100 MG CAPSULE PO SCH ×2 (09:08→21:01)
[2022-05-07] MEDS: ALBUTEROL SULFATE 60 PUFF INHALER INH SCH ×4 (09:09→22:52)
--- NOTE | 2022-05-07 09:30 | Internal Med Progress Note ---
SUBJECTIVE Subjective Patient information: Note initiated : 05/07/22 at 9:29 am Service Date, if different from initiated Date: Patient: George Ma 81 y/o F admitted on 05/05/22 for pneumonia. Interval history: Patient is feeling well. She has off-and-on confusion. At the time of my evaluation she is awake alert oriented X3. She is on 6-8 L high heated flow during the day and at sleep 8-9 L. No reported nausea vomiting chest pain fever chills dizziness Pertinent ROS: Except as documented all systems reviewed and negative Constitutional Vitals: Vital Signs Temp Pulse Resp BP Pulse Ox O2 Del Method O2 Flow Rate 97.2 F 76 16 100/64 92 8 05/07/22 04:08 05/06/22 22:47 05/06/22 22:47 05/07/22 07:01 05/07/22 07:01 05/07/22 07:01 05/07/22 07:01 Period Temp Pulse Resp BP Sys/Figueredo Pulse Ox O2 Del Method O2 Flow Rate Last 24 Hr 97.2 F-98.2 F 76-87 16-20 91-149/54-93 92-100 Heated High Flow Nasal Ca-Oxymask 6-30 Intake and Output 05/06/22 05/07/22 05/07/22 19:59 03:59 11:59 Intake Total 860 220 Output Total 1125 450 225 Balance -265 -230 -225 Weight 105.007 kg 102.194 kg Intake & Output: Intake & Output 05/06/22 05/07/22 05/07/22 19:59 03:59 11:59 Intake Total 860 220 Output Total 1125 450 225 Balance -265 -230 -225 Weight 105.007 kg 102.194 kg Intake: Oral 860 220 Output: Void Amount 1125 450 225 Other: Meal Dinner Percent of Meal Consumed 50% Urine Appearance Clear Clear Clear Urine Color Yellow Light Lyubov Dark Lyubov Exam: General: Pleasant elderly female, obese with BMI 36, alert, Awake, No acute Distress, obese Eyes/N/T: EOMI, moist mucous membrane Head/Neck: neck supple, no JVD CV: irreg irreg, No murmurs, Pulm: Scattered bilateral crackles. No wheezing. No use of accessory muscles of respiration Abd: soft, nontender, +BS Ext: no clubbing/cyanosis, trace b/l LE edema Neuro: Alert, no focal deficits, moves all extremities, Skin: warm/dry OBJ DATA Labs CBC & Chem 7: 05/07/22 05:37 05/07/22 05:37 Labs: Abnormal Lab Results 05/07/22 05/07/22 05/06/22 05:37 05:37 05:14 WBC RBC 3.21 L Hgb 10.8 L Hct MCV 108.1 H MCHC RDW 15.8 H Immature Gran % (Auto) 0.6 H Neut % (Auto) 88.3 H Lymph % (Auto) 5.4 L Lymph # (Auto) 0.55 L Immature Gran # 0.06 H Absolute Neutrophils 8.99 H Nucleated RBCs RBC Morphology Polychromasia Anisocytosis Ovalocytes POC VBG pCO2 at Temp POC VBG HCO3 POC VBG Total CO2 POC VBG Base Excess VBG Lactic Acid Chloride 88 L 89 L Carbon Dioxide 42 H* 35 H POC Total CO2 Anion Gap 5.0 L POC BUN BUN 31 H Creatinine 1.7 H 1.3 H Glucose 127 H 119 H POC Glucose Uric Acid 9.8 H POC WB Ioniz Calcium Total Bilirubin 1.1 H 1.6 H Direct Bilirubin 0.9 H Lactate Dehydrogenase 295 H C-Reactive Protein C-React Prot High Sens 48.6 H NT-Pro-B Natriuret Pep Globulin 4.0 H 4.0 H Albumin/Globulin Ratio 0.9 L 0.9 L Procalcitonin Urine Occult Blood Hyaline Casts 05/06/22 05/05/22 05/05/22 05:14 12:40 12:32 WBC 4.4 L RBC 3.16 L Hgb 10.3 L Hct 33.3 L MCV 105.4 H MCHC 30.9 L RDW 15.5 H Immature Gran % (Auto) Neut % (Auto) Lymph % (Auto) Lymph # (Auto) Immature Gran # Absolute Neutrophils Nucleated RBCs RBC Morphology Polychromasia Anisocytosis Ovalocytes POC VBG pCO2 at Temp 66.1 H* POC VBG HCO3 34.2 H POC VBG Total CO2 36.0 H POC VBG Base Excess 8.0 H* VBG Lactic Acid Chloride Carbon Dioxide POC Total CO2 Anion Gap POC BUN BUN Creatinine Glucose POC Glucose Uric Acid POC WB Ioniz Calcium Total Bilirubin Direct Bilirubin Lactate Dehydrogenase C-Reactive Protein C-React Prot High Sens NT-Pro-B Natriuret Pep Globulin Albumin/Globulin Ratio Procalcitonin Urine Occult Blood Trace-lysed A Hyaline Casts 3 H 05/05/22 05/05/22 05/05/22 09:21 09:08 09:03 WBC RBC 3.37 L Hgb Hct MCV 109.2 H MCHC 30.4 L RDW 15.9 H Immature Gran % (Auto) 0.9 H Neut % (Auto) 79.0 H Lymph % (Auto) 11.5 L Lymph # (Auto) 0.74 L Immature Gran # 0.06 H Absolute Neutrophils Nucleated RBCs RBC Morphology Polychromasia Anisocytosis Ovalocytes POC VBG pCO2 at Temp 56.8 H POC VBG HCO3 32.5 H POC VBG Total CO2 34.0 H POC VBG Base Excess 7.0 H* VBG Lactic Acid 4.1 H* Chloride Carbon Dioxide POC Total CO2 31.0 H Anion Gap POC BUN 22 H BUN Creatinine Glucose POC Glucose 117 H Uric Acid POC WB Ioniz Calcium 1.10 L Total Bilirubin Direct Bilirubin Lactate Dehydrogenase C-Reactive Protein C-React Prot High Sens NT-Pro-B Natriuret Pep Globulin Albumin/Globulin Ratio Procalcitonin Urine Occult Blood Hyaline Casts 05/05/22 05/05/22 05/05/22 09:02 09:02 09:02 WBC RBC Hgb Hct MCV MCHC RDW Immature Gran % (Auto) Neut % (Auto) Lymph % (Auto) Lymph # (Auto) Immature Gran # Absolute Neutrophils Nucleated RBCs 1 H RBC Morphology Abnormal A Polychromasia Few A Anisocytosis 1+ A Ovalocytes Few A POC VBG pCO2 at Temp POC VBG HCO3 POC VBG Total CO2 POC VBG Base Excess VBG Lactic Acid Chloride Carbon Dioxide POC Total CO2 Anion Gap POC BUN BUN Creatinine Glucose POC Glucose Uric Acid POC WB Ioniz Calcium Total Bilirubin Direct Bilirubin Lactate Dehydrogenase C-Reactive Protein 4.30 H C-React Prot High Sens NT-Pro-B Natriuret Pep Globulin Albumin/Globulin Ratio Procalcitonin 0.11 H Urine Occult Blood Hyaline Casts 05/05/22 09:02 WBC RBC Hgb Hct MCV MCHC RDW Immature Gran % (Auto) Neut % (Auto) Lymph % (Auto) Lymph # (Auto) Immature Gran # Absolute Neutrophils Nucleated RBCs RBC Morphology Polychromasia Anisocytosis Ovalocytes POC VBG pCO2 at Temp POC VBG HCO3 POC VBG Total CO2 POC VBG Base Excess VBG Lactic Acid Chloride Carbon Dioxide POC Total CO2 Anion Gap POC BUN BUN Creatinine Glucose POC Glucose Uric Acid POC WB Ioniz Calcium Total Bilirubin Direct Bilirubin Lactate Dehydrogenase C-Reactive Protein C-React Prot High Sens NT-Pro-B Natriuret Pep 4771.0 H Globulin Albumin/Globulin Ratio Procalcitonin Urine Occult Blood Hyaline Casts Meds: Medications Acetaminophen (Acetaminophen 325 Mg Tablet) 650 mg PO Q4-6HP PRN; Protocol PRN Reason: Per Pain Protocol/Fever > 101 Last Admin: 05/06/22 21:25 Dose: 650 mg Albuterol Sulfate (Albuterol Sulfate 60 Puff Inhaler) 2 puff INH QID [facility] Last Admin: 05/07/22 09:09 Dose: 2 puff Albuterol/Ipratropium (Ipratropium/Albuterol 3 Ml Ampul.Neb) 3 ml NEB Q4HP PRN PRN Reason: Shortness Of Breath Apixaban (Apixaban 5 Mg Tablet) 5 mg PO BID [facility] Last Admin: 05/07/22 09:07 Dose: 5 mg Azithromycin (Azithromycin 250 Mg Tablet) 500 mg PO DAILY [facility] Stop: 05/07/22 10:00 Last Admin: 05/07/22 09:08 Dose: 500 mg Benzonatate (Benzonatate 100 Mg Capsule) 100 mg PO TIDP PRN PRN Reason: Cough Budesonide (Budesonide 0.5 Mg/2 Ml Ampul.Neb) 0.5 mg NEB Q12 [facility] Last Admin: 05/06/22 21:15 Dose: 0.5 mg Ceftriaxone Sodium (Ceftriaxone 1 Gm Vial) 1 gm IV Q24H [facility] Stop: 05/09/22 12:00 Last Admin: 05/07/22 09:07 Dose: 1 gm Dexamethasone (Dexamethasone 4 Mg Tablet) 6 mg PO DAILY [facility] Last Admin: 05/07/22 09:08 Dose: 6 mg Diltiazem HCl (Diltiazem 120 Mg Cap.Xl.24h) 120 mg PO QDAY [facility] Last Admin: 05/07/22 09:07 Dose: 120 mg Docusate Sodium (Docusate Sodium 100 Mg Capsule) 100 mg PO BID [facility] Last Admin: 05/07/22 09:08 Dose: Not Given Guaifenesin (Guaifenesin/Dextromethorphan Oral Kathy) 10 ml PO Q6HP PRN PRN Reason: Cough Last Admin: 05/06/22 09:15 Dose: 10 ml Hydralazine HCl (Hydralazine 20 Mg/Ml Vial) 0 mg IV Q2HP PRN PRN Reason: Hypertension Last Admin: 05/05/22 23:19 Dose: 20 mg Labetalol HCl (Labetalol 5 Mg/Ml Ml) 0 mg IV Q2HP PRN PRN Reason: Hypertension Levothyroxine Sodium (Levothyroxine 150 Mcg Tablet) 150 mcg PO 0730 [facility] Last Admin: 05/07/22 07:30 Dose: 150 mcg Liothyronine Sodium (Liothyronine 5 Mcg Tablet) 5 mcg PO 0730 [facility] Last Admin: 05/07/22 07:30 Dose: 5 mcg Losartan Potassium (Losartan 50 Mg Tablet) 100 mg PO QDAY [facility] Last Admin: 05/07/22 09:08 Dose: 100 mg Metoprolol Succinate (Metoprolol Succinate 25 Mg Tab.Xl.24h) 50 mg PO HS [facility] Last Admin: 05/06/22 20:16 Dose: 50 mg Metoprolol Tartrate (Metoprolol Tartrate 5 Mg/5 Ml Vial) 5 mg IV Q2HP PRN PRN Reason: Tachyarrhythmias HR>110 Montelukast Sodium (Montelukast 10 Mg Tablet) 10 mg PO DAILY [facility] Last Admin: 05/07/22 09:07 Dose: 10 mg Ondansetron HCl (Ondansetron 4 Mg/2 Ml Vial) 4 mg IV Q4-6HP PRN PRN Reason: Nausea And Vomiting Oseltamivir Phosphate (Oseltamivir Phosphate 75 Mg Capsule) 75 mg PO BID [facility] Stop: 05/09/22 21:01 Last Admin: 05/07/22 09:08 Dose: 75 mg Pantoprazole Sodium (Pantoprazole 40 Mg Tablet) 40 mg PO QAMAC [facility] Last Admin: 05/07/22 07:30 Dose: 40 mg Fluticasone- Umeclidin-Vilanter [ Trelegy Ellipta 1 dose INH QDAY [facility] Last Admin: 05/07/22 08:54 Dose: Not Given Sertraline HCl (Sertraline 50 Mg Tablet) 25 mg PO QDAY [facility] Last Admin: 05/07/22 09:08 Dose: 25 mg Sodium Chloride (0.9 % Sodium Chloride 10 Ml Syringe) 10 ml IV Q8 [facility] Last Admin: 05/07/22 05:32 Dose: 10 ml Spironolactone (Spironolactone 25 Mg Tablet) 25 mg PO QDAY [facility] Last Admin: 05/07/22 09:08 Dose: 25 mg Trazodone HCl (Trazodone Hcl 50 Mg Tablet) 25 mg PO QHS [facility] Last Admin: 05/06/22 20:15 Dose: 25 mg A/P Sepsis Sepsis Identified: No Narrative A/P Narrative: Pleasant 81 years old female with past medical history significant for pulmonary fibrosis, chronic hypoxic respiratory failure on 5 L admitted with following problem list: #Acute on chronic hypoxic respiratory failure #COVID 19 infection pneumonia, influenza B infection #Acute on chronic hypoxic/hypercapnic respiratory failure: 2/2 diastolic heart failure and and COVID 19 and influenza B -Blood culture negative x2 -Continue Dexamethasone. Discontinued remdesivir (no indication). Continue Tamiflu - Continue bronchodilator, heated flow oxygen,IS/Acapella, prn nebs, RT - Dc IV Lasix due to TAM. -Consider CPAP if condition worsen. Self proning Goals of care: Continue current management, patient declines and she wishes to transition to comfort - No Indication for Tocilizumab Since patient is improving #Acute kidney injury on CKD II, nonoliguric - Due to Lasix. - Dc IV Lasix. Follow renal panel. Avoid nephrotoxic agent #Hypertensive urgency: -Resolved. Continue home beta-shaka. Discontinue Aldactone and losartan due to TAM. -As needed hydralazine for systolic greater than 180 #Pulmonary fibrosis (5-6L NC@home): -Not on home steroid. #GREGORY on CPAP: Continue home CPAP if she has her own #Chronic atrial fibrillation -Continue beta-shaka and home Eliquis #Obesity: BMI 36 #Hypothyroidism: Continue home levothyroxine #Depression/anxiety: Continue home SSRI -CM for placement needs. -DVT ppx: Eliquis Disposition: Home versus SNF likely in 48 hours DNR/DNI Time Spent With Patient Time: Total time spent is greater than 50% in coordination of care (as documented) at patient's floor/unit and/or counseling patient: Total time spent with greater than 50% in coordination of care (as documented) at patient's floor/unit and/or counseling patient:: 35 - 50 minutes Critical Care Time: No
[2022-05-07] MEDS: BUDESONIDE 0.5 MG/2 ML AMPUL.NEB NEB SCH ×2 (10:17→22:13)
--- NOTE | 2022-05-07 11:19 | EKG ---
[facility] Test Date: 2022-05-05 Pat Name: George Ma Department: ED Room: Gender: Female Internal Audit Director: MILA : 1940 Requested By: Ferny Atwood Order Number: [id number] Reading MD: Aniceto Landeros M.D. Measurements Intervals [place] Rate: 100 P: 0 ME: 144 QRS: 89 QRSD: 94 T: -33 QT: 340 QTc: 437 Interpretive Statements Atrial fibrillation with rapid ventricular response Possible anteroseptal infarct, old Electronically Signed On 05-07-2022 11:19:20 PST by Aniceto Landeros M.D. /[id number]
[2022-05-07] MEDS: METOPROLOL SUCCINATE 25 MG TAB.XL.24H PO SCH (20:59)
[2022-05-07] MEDS: traZODone HCL 50 MG TABLET PO SCH (21:00)
[2022-05-07] MEDS ORDERED: MELATONIN 3 MG TABLET PO SCH (21:00)
[2022-05-07] MEDS: ACETAMINOPHEN 325 MG TABLET PO PRN (23:05)
[2022-05-08] MEDS: 0.9 % SODIUM CHLORIDE 10 ML SYRINGE IV SCH ×3 (03:50→15:15)
[2022-05-08 06:39] LABS: Basophils # (Auto) 0.01 K/mcL (0.00-0.30); Basophils % (Auto) 0.1 % (0.0-2.0); Eosinophils # (Auto) 0 K/mcL (0.00-0.70); Eosinophils % (Auto) 0 % (0.0-7.0); Hemoglobin 10.8 g/dL (11.2-15.7); Lymphocytes # (Auto) 0.58 K/mcL (1.50-4.80); Lymphocytes % (Auto) 6.8 % (15.5-49.0); Mean Cell Volume 106.4 fL (80.0-100.0); Mean Corpuscular HGB Conc 30.9 g/dL (31.0-36.0); Mean Platelet Volume 10.8 fL (8.8-12.5); Monocytes # (Auto) 0.44 K/mcL (0.10-0.90); Monocytes % (Auto) 5.1 % (1.0-12.0); Neutrophils % (Auto) 87.1 % (38.0-78.0); Platelet Count 160 K/mcL (140-440); RBC 3.29 M/mcL (3.59-5.38); Red Cell Distribution Width 15.7 % (11.5-14.5); WBC 8.6 K/mcL (4.5-11.0)
[2022-05-08 06:58] LABS: ALT/SGPT 13 U/L (<40); AST/SGOT 23 U/L (<32); Albumin 3.6 gm/dL (3.2-5.2); Alkaline Phosphatase 49 U/L (39-117); Bilirubin,Total 0.9 mg/dL (0.1-1.0); Blood Urea Nitrogen 35 mg/dL (8-23); Calcium 8.6 mg/dL (8.6-10.4); Carbon Dioxide 43 mmol/L (22-30); Chloride 87 mmol/L (96-108); Globulin 3.7 gm/dL (2.2-3.7); Glomerular Filtration Rate 35; Glucose 119 mg/dL (70-105)
[2022-05-08] MEDS: FLUTICASONE UMECLIDIN VILANTER INH SCH (09:09)
[2022-05-08] MEDS: OSELTAMIVIR PHOSPHATE 75 MG CAPSULE PO SCH (09:18)
[2022-05-08] MEDS: SERTRALINE 50 MG TABLET PO SCH (09:18)
[2022-05-08] MEDS: LEVOTHYROXINE 150 MCG TABLET PO SCH (09:18)
[2022-05-08] MEDS: DILTIAZEM 120 MG CAP.XL.24H PO SCH (09:18)
[2022-05-08] MEDS: LIOTHYRONINE 5 MCG TABLET PO SCH (09:18)
[2022-05-08] MEDS: MONTELUKAST 10 MG TABLET PO SCH (09:20)
[2022-05-08] MEDS: APIXABAN 5 MG TABLET PO SCH (09:20)
[2022-05-08] MEDS: DOCUSATE SODIUM 100 MG CAPSULE PO SCH (09:20)
[2022-05-08] MEDS: PANTOPRAZOLE 40 MG TABLET PO SCH (09:20)
[2022-05-08] MEDS: DEXAMETHASONE 4 MG TABLET PO SCH (09:21)
[2022-05-08] MEDS: cefTRIAXone 1 GM VIAL IV SCH (09:23)
[2022-05-08] MEDS: ALBUTEROL SULFATE 60 PUFF INHALER INH SCH ×2 (09:27→15:15)
[2022-05-08] MEDS: BUDESONIDE 0.5 MG/2 ML AMPUL.NEB NEB SCH (10:36)
--- NOTE | 2022-05-08 13:32 | Discharge Summary ---
Discharge Provider Provider IMPORTANT FOLLOW-UP INFORMATION FOR PCP: Patient information: Note initiated : 05/08/22 at 1:24 pm Patient: George Ma 81 y/o F admitted on 05/05/22 for pneumonia- Hypoxic,Hypercapnic Respiratory Failure. Date of admission: 05/05/22 12:02 Discharge date: 05/08/22 Primary care physician: Lissette Rivera Admitting clinician: Carlos Eduardo Johnson Attending physician on admission: Carlos Eduardo Johnson Attending physician on discharge: Carlos Eduardo Johnson Discharging clinician: Carlos Eduardo Johnson COURSE Hospital Course Hospital course: Pleasant 81 years old female with past medical history significant for pulmonary fibrosis, chronic hypoxic respiratory failure on 5 L admitted with following problem list: #Acute on chronic hypoxic respiratory failure #COVID 19 infection pneumonia, influenza B infection #Acute on chronic hypoxic/hypercapnic respiratory failure: 2/2 diastolic heart failure and and COVID 19 and influenza B -Blood culture negative x2 -Treated with dexamethasone. Discontinued remdesivir (no indication). Continue Tamiflu for total 5 days -Treated with IV Rocephin/azithromycin. Changed to p.o. Levaquin for 3 more days. - Continue bronchodilator, heated flow oxygen,IS/Acapella, prn nebs, RT - No Indication for Tocilizumab Since patient is improving -Currently patient is at her baseline 5 L nasal cannula. Patient would like to go home. She is cleared by PT. #Acute kidney injury on CKD II, nonoliguric - Due to Lasix. -Treated initially with IV Lasix. Creatinine peaked at 1.7. Trended to 1.4 at discharge. -Resume home diuretics on discharge. Follow-up PCP and check BMP in 1 week #Hypertensive urgency: -Resolved. Continue home beta-shaka. Resume Aldactone and losartan on discharge. #Metabolic alkalosis. Compensation due to respiratory acidosis. -CO2 43. Outpatient follow-up and check BMP. -Consider restarting Diamox if she develops severe alkalosis #Pulmonary fibrosis (5-6L NC@home): -Not on home steroid. #GREGORY on CPAP: Continue home CPAP #Chronic atrial fibrillation -Continue beta-shaka and home Eliquis #Obesity: BMI 36 #Hypothyroidism: Continue home levothyroxine #Depression/anxiety: Continue home SSRI Disposition: Patient discharged home Condition on discharge: Hemodynamically stable. Tolerated p.o.. On 5 L oxygen which is her baseline Discharge activity: As tolerated Discharge diet: Healthy, low-fat Discharge medication: See med reconciliation form Discharge follow-up: Primary care physician within 1 week for post hospital follow-up CODE STATUS: DNR/DNI Discharge diagnosis: Acute on chronic hypoxic respiratory failure, COVID-19 infection, influenza Secondary discharge diagnosis: Pulmonary fibrosis, chronic hypoxic respiratory failure normally 5 L oxygen at home Time Spent with Patient Time attestation: Total time spent providing and/or coordinating discharge services: Time spent: Greater than 30 minutes Specific discharge activities: 38 minutes EXAM Constitutional Vitals: Temp Pulse Resp BP Pulse Ox O2 Del Method O2 Flow Rate 98.1 F 64 16 139/87 96 5 05/08/22 12:00 05/08/22 10:38 05/08/22 12:00 05/08/22 12:00 05/08/22 12:00 05/08/22 12:00 05/08/22 12:00 Exam: General: Pleasant elderly female, obese with BMI 36, alert, Awake, No acute Distress, obese. She is comfortable talks full sentences. Eyes/N/T: EOMI, moist mucous membrane Head/Neck: neck supple, no JVD CV: irreg irreg, No murmurs, Pulm: Scattered bilateral crackles. No wheezing. No use of accessory muscles of respiration Abd: soft, nontender, +BS Ext: no clubbing/cyanosis, trace b/l LE edema Neuro: Alert, no focal deficits, moves all extremities, Discharge Data Data Completed and Pending Labs on day of discharge: Labs from last 24 hours 05/08/22 05/08/22 05:44 05:44 WBC 8.6 RBC 3.29 L Hgb 10.8 L Hct 35.0 MCV 106.4 H MCH 32.8 MCHC 30.9 L RDW 15.7 H Plt Count 160 MPV 10.8 Immature Gran % (Auto) 0.9 H Neut % (Auto) 87.1 H Lymph % (Auto) 6.8 L [place] % (Auto) 5.1 Eos % (Auto) 0 Baso % (Auto) 0.1 Lymph # (Auto) 0.58 L [place] # (Auto) 0.44 Eos # (Auto) 0 Baso # (Auto) 0.01 Immature Gran # 0.08 H Absolute Neutrophils 7.45 Sodium 137 Potassium 3.6 Chloride 87 L Carbon Dioxide 43 H* Anion Gap 7.0 L BUN 35 H Creatinine 1.4 H GFR Calculation 35 Glucose 119 H Calcium 8.6 Total Bilirubin 0.9 AST 23 ALT 13 Alkaline Phosphatase 49 Total Protein 7.3 Albumin 3.6 Globulin 3.7 Albumin/Globulin Ratio 1.0 Preliminary micro results at discharge 05/05/22 10:00 Blood Culture - Preliminary Blood 05/05/22 09:55 Blood Culture - Preliminary Blood Discharge Plan Patient/Caregiver Discharge Instructions Activity: increase activity as tolerated Diet: Low Sodium (2gm) and Cardiac Instructions: Influenza (DC), COVID-19 (Coronavirus Disease 2019)(GEN) Activity Restrictions/Additional Instructions: Increase activity as tolerated. Cardiac diet as tolerated. Call your physician for sustained fever greater than 100.5, incrase in shortness of breath, or any questions/concerns. This discharge packet is provided to you to help keep you informed about your care. We want to ensure you get everything you need when you go home. You will also be receiving a call from us in a few days to follow up with you and see how you are doing since your discharge. This gives us a chance to listen to any concerns you maybe experiencing since you were discharged or any additional needs you may have, as well as providing us feedback on your care experience. We strive to always provide excellent care and thank you for your feedback and for choosing [facility]. Prescriptions: New dexamethasone 4 mg Tablet 6 mg PO DAILY 3 Days Qty: 6 0RF levofloxacin 500 mg tablet 500 mg PO Q24H 3 Days Qty: 3 0RF oseltamivir [Tamiflu] 75 mg capsule 75 mg PO BID 2 Days Qty: 4 0RF Rx Instructions: 2 more days Continued liothyronine 5 mcg tablet 5 mcg PO QDAY Qty: 90 1RF albuterol sulfate [Ventolin HFA] 90 mcg/actuation HFA aerosol inhaler 2 puff INHALATION QID Qty: 18 6RF Trelegy Ellipta 200-62.5-25 mcg blister with device 1 inh inhalation QDAY Qty: 60 4RF losartan 100 mg tablet 100 mg PO QDAY Eliquis 5 mg tablet 5 mg PO BID metoprolol succinate 25 mg tablet extended release 24 hr 50 mg PO .Q HS Qty: 90 1RF spironolactone 25 mg tablet 25 mg PO QDAY Qty: 30 2RF furosemide 20 mg tablet 40 mg PO QDAY trazodone 50 mg tablet 25 mg PO QHS levothyroxine 150 mcg tablet 1 tab PO QDAY sertraline 50 mg tablet 25 mg PO QDAY potassium chloride 10 mEq tablet extended release 1 tab PO QDAY diltiazem HCl 120 mg capsule,extended release 24hr 1 cap PO QDAY montelukast 10 mg tablet 10 mg PO DAILY No Action (DME) Handicap Placard See Rx Instructions .Route .MEDSUPPLY Qty: 1 0RF Rx Instructions: Patient unable to walk more than 6 feet without significant difficulties breathing due to medical conditions. Follow Up Plan Follow up with: Lissette Rivera ARNP [Primary Care Provider] - 05/20/22 10:15 am (Follow-up in 1 week for post hospital discharge) Patient Disposition: Home, Self-Care Prognosis: Fair Discharge Orders: Discharge Order (Routine); Ordered 05/08/22 Ordered By: Carlos Eduardo Johnson
== END 2022-05-08 15:13 | disposition home or self-care (01) | DRG 189 ==
LOC: ED 08:41 → ICU 12:02 → MEDSUR 05-07 16:44
PROVIDERS: ADMIT Internal Medicine; ATTEND Internal Medicine

== ENCOUNTER 2022-05-28 07:07 | Inpatient (IN) ==
[2022-05-28] MEDS ORDERED: 0.9 % SODIUM CHLORIDE 1,000 ML IV ONE ×2 (07:12→08:38)
[2022-05-28 07:42] LABS: POC Calcium, Ionized 1.12 (1.16-1.32); POC Creatinine 2.9 (0.6-1.2); POC Potassium 3.4 (3.3-5.1)
--- NOTE | 2022-05-28 07:52 | XRay Report ---
HISTORY: Pneumonia, fell, weakness FINDINGS: Mild increased interstitial lung markings are present throughout both lung [place]. Greatest involvement is laterally at the left lung base. The heart is moderately enlarged but has diminished in size since 05/05/22. The pulmonary edema seen on the prior exam has resolved. No pleural effusion is present. Aorta is tortuous. 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 IMPRESSION: Nonspecific interstitial lung disease. This may be secondary to chronic congestive heart failure, pulmonary fibrosis or an interstitial inflammatory process. Improved cardiomegaly Interpreted and Authenticated by: Prem Landeros 05/28/22
--- NOTE | 2022-05-28 07:53 | Emergency Department Note ---
Weakness HPI General Chief complaint: Weakness Stated complaint: Weak, fall Time Seen by Provider: 05/28/22 07:11 Source: EMS Mode of arrival: EMS Limitations: no limitations History of Present Illness HPI Narrative: Narrative: Patient presents ED escorted by daughter with concerns about confusion and weakness. Patient's daughter states that she fell twice today. She is unsure if she hit her head during 1 of those falls. States her mom just been a little bit off. At baseline she uses supplemental oxygen via nasal cannula 07/12. Patient does report a history of pulmonary fibrosis. She was advised in the p ast that she should probably use a CPAP but she could not tolerate it. Patient denies fever, chills, nausea, vomiting, dizziness, vision changes, facial droopiness, slurred speech, extremity weakness, extremity numbness, loss of motor function of the extremity, dysuria, hematuria or frequency, melena, medic easier, hematemesis, cardiac chest pain, heart palpitations. Patient denies any other alleviating or aggravating factors. Related Data Home Medications Medication Instructions Recorded Confirmed furosemide 20 mg tablet 40 mg PO QDAY FLUID RETENTION 12/04/21 05/13/22 diltiazem HCl 120 mg 1 cap PO QDAY 05/05/22 05/13/22 capsule,extended release 24 hr levothyroxine 150 mcg tablet 1 tab PO QDAY 05/05/22 05/13/22 montelukast 10 mg tablet 10 mg PO DAILY 05/05/22 05/13/22 potassium chloride 10 mEq 1 tab PO QDAY 05/05/22 05/13/22 tablet,extended release sertraline 50 mg tablet 25 mg PO QDAY 05/05/22 05/13/22 trazodone 50 mg tablet 25 mg PO QHS 05/05/22 05/13/22 Previous Rx's Medication Instructions Recorded Handicap Placard #1 ea 04/18/21 liothyronine 5 mcg tablet 5 mcg PO QDAY #90 tabs 12/04/21 albuterol sulfate 90 mcg/actuation 2 puff inhalation QID #18 grams 03/31/22 aerosol inhaler (Ventolin HFA) metoprolol succinate 25 mg 50 mg PO .Q HS #90 tabs 04/06/22 tablet,extended release 24 hr spironolactone 25 mg tablet 25 mg PO QDAY #30 tabs 04/06/22 fluticasone fur. 200 mcg-umeclid 1 inh inhalation QDAY #60 ea 05/04/22 62.5 mcg-vilant 25 mcg inhalat.powder (Trelegy Ellipta) prednisone 10 mg tablet 40 mg PO QDAY #20 tabs 05/20/22 apixaban 5 mg tablet (Eliquis) 5 mg PO BID #60 tabs 05/22/22 losartan 100 mg tablet 100 mg PO QDAY #90 tabs 05/26/22 Allergies Allergy/AdvReac Type Severity Reaction Status Date / Time codeine AdvReac Mild Confusion Verified 05/28/22 07:07 meperidine [From Demerol] AdvReac Mild Vomiting Verified 05/28/22 07:07 wool AdvReac Mild itch Verified 05/28/22 07:07 Review of Systems ROS ROS Narrative: Narrative: All systems ED: reviewed and negative except as stated. PFSH Narrative Patient History Narrative: Narrative: Medical/Surgical/Family History All Active Problems (Updated 05/28/22 @ 09:48 by Ferny Atwood DO) Hypercapnia (Acute) Fall (Acute) Generalized weakness (Acute) Acute dehydration (Acute) Acute kidney injury (Acute) Acute and chronic respiratory failure with hypoxia (Acute) COVID-19 virus infection (Acute) Sepsis, viral (Acute) Influenza B (Acute) Anxiety (Acute) Insomnia (Acute) Anxiety (Acute) Bilateral chronic knee pain (Acute) Restrictive lung disease (Chronic) Post covid-19 condition, unspecified (Acute) Acute congestive heart failure (Acute) Acute pneumonia (Acute) CHF (congestive heart failure) (Acute) Afib (Chronic) Dyspnea (Acute) GREGORY (obstructive sleep apnea) (Chronic) Pulmonary fibrosis (Chronic) Acute bronchitis (Chronic) Deep vein thrombosis of lower extremity (Chronic) Asymptomatic hypertensive urgency (Acute) Fever (Acute) Obesity (BMI 30.0-34.9) (Chronic) Hypothyroidism, acquired (Chronic) Asthma, mild intermittent (Chronic) Hypertension, essential (Chronic) Sinusitis (Chronic) Mild congestive heart failure (Chronic) Insulin resistance syndrome (Chronic) Snoring (Chronic) Chronic rhinitis (Chronic) Secondary pulmonary arterial hypertension (Chronic) Abnormal pulmonary function test (Chronic) Asthma (Chronic) Left ventricular hypertrophy (Chronic) Secondary pulmonary hypertension (Chronic) Hyperplastic colonic polyp (Chronic) Bilateral primary osteoarthritis of knee (Chronic) Bilateral knee pain (Acute) History of varicose veins (Chronic) History of deep venous thrombosis (Chronic) Decreased circulation (Chronic) Multiple joint pain (Chronic) Chronic pulmonary congestion (Chronic) CHF (congestive heart failure) (Chronic) Encounter for long-term (current) use of medications (Chronic) Hyperlipidemia (Chronic) Skin rash (Chronic) Skin lesion (Chronic) Allergic rhinitis (Chronic) Stress (Chronic) Hypothyroidism (Chronic) Anxiety and depression (Chronic) Special screening for malignant neoplasms, colon (Chronic) Weight gain (Chronic) Multiple nevi (Chronic) Left shoulder pain (Chronic) Fatigue (Chronic) Screening for malignant neoplasm of cervix (Chronic) Bone spur (Chronic) Keratosis (Chronic) History of bronchitis (Chronic ~2017) Deep vein thrombosis (DVT) of right lower extremity (Chronic ~05/2017) Insomnia, unspecified (Acute) Right lower quadrant pain (Acute) Hypertension, essential (Acute) Constipation (Acute) Stress (Acute) Hyperlipidemia (Acute) Lumbar radiculopathy (Acute) Stage III chronic kidney disease (Acute) Skin mole (Acute) Hypersomnia (Chronic) Nocturnal hypoxia (Chronic) Elevated antinuclear antibody (KOTA) level (Acute) Fluid retention (Acute) Medical History Abnormal pulmonary function test Acute bronchitis Allergic rhinitis Anxiety and depression Asthma Asthma, mild intermittent Bilateral knee pain Bilateral primary osteoarthritis of knee Bone spur CHF (congestive heart failure) Chronic pulmonary congestion Chronic rhinitis Decreased circulation Deep vein thrombosis (DVT) of right lower extremity (~05/2017) Deep vein thrombosis of lower extremity Elevated antinuclear antibody (KOTA) level Encounter for long-term (current) use of medications Fatigue History of bronchitis (~2017) History of deep venous thrombosis History of varicose veins Hyperlipidemia Hyperplastic colonic polyp Hypersomnia Hypertension, essential Hypothyroidism Hypothyroidism, acquired Insulin resistance syndrome Keratosis Left shoulder pain Left ventricular hypertrophy Mild congestive heart failure Multiple joint pain Multiple nevi Nocturnal hypoxia Obesity (BMI 30.0-34.9) GREGORY (obstructive sleep apnea) Restrictive lung disease Screening for malignant neoplasm of cervix Secondary pulmonary arterial hypertension Secondary pulmonary hypertension Sinusitis Skin lesion Skin rash Snoring Special screening for malignant neoplasms, colon Stress Weight gain Surgical History History of colonoscopy (03/31/18) performed by Dr. Frye History of skin cancer (~07/2013) on face History of tonsillectomy Family History Mother , Age 86 Liver cancer Daughter Asthma Unknown Hypertension Father , Age 95 No problems noted. Social History Smoking Status: Former smoker Substance Use: does not use Exam Narrative Narrative: Narrative: General Limitations: no limitations General appearance: Absent in distress Head Head: Present atraumatic and normocephalic Eye Eye: Present PERRL and EOMI ENT ENT: Present normal oropharynx and mucous membranes moist Neck Neck: Present normal inspection; Absent meningismus Respiratory Respiratory: Present normal lung sounds bilaterally; Absent respiratory distress, wheezes or stridor Cardiovascular Cardiovascular: Present regular rate and normal rhythm Adbominal Abdominal: Present soft and normal bowel sounds; Absent tenderness Extremities Extremities: Present normal inspection and normal capillary refill Back Back: Absent CVA tenderness (R) or CVA tenderness (L) Neurological Neurological: Present alert and oriented X3 Expanded Neurological Speech: Present fluid speech Motor strength - LUE: 5/5 Motor strength - RUE: 5/5 Motor strength - LLE: 5/5 Motor strength - RLE: 5/5 Psychiatric Psychiatric: Present normal affect and normal mood Skin Skin: Present warm (WNL) and intact Course Course Course Narrative: , Confusion and a fall. CT of the head was obtained with image reviewed myself no acute cardiopulmonary finding. EKG was unremarkable. Urine was unremarkable. Labs are unremarkable to include normal white cell count. She did however have acute kidney injury with elevated BUN and creatinine. Patient was given IV fluid as well as IV Lasix. We did get your good urine output. Patient's lactic acid was within normal limits however her CO2 level was elevated at 81. She had normal pH. Patient does have hypercapnia. She was placed on BiPAP. Repeat blood gas after about an hour on BiPAP showed that her CO2 level did improve. He was a combination of hypercapnia and acute kidney injury think would be prudent to have patient admitted to the hospital. Case was discussed with hospitalist who has agreed to admit the patient. Plan of care was discussed with patient and her daughter was at bedside and expressed verbal understanding and agreement. Consultations Consultation #1: Case with hospitalist, Dr. Nielsno, who is graciously excepted patient to be admitted to the hospital Time: 11:12 Vital Signs Vital signs: Vital Signs Temperature 97.9 F 05/28/22 07:07 Pulse Rate 54 L 05/28/22 07:07 Respiratory Rate 16 05/28/22 07:07 Blood Pressure 91/48 05/28/22 07:07 Pulse Oximetry (%) 100 05/28/22 07:07 Oxygen Delivery Method 05/28/22 07:07 Oxygen Flow Rate (L/min) 2 05/28/22 07:07 Temperature 97.9 F 05/28/22 07:07 Pulse Rate 48 L 05/28/22 11:02 Respiratory Rate 20 05/28/22 11:02 Blood Pressure 88/53 05/28/22 11:02 Pulse Oximetry (%) 100 05/28/22 11:02 Oxygen Delivery Method 05/28/22 07:21 Oxygen Flow Rate (L/min) 2 05/28/22 07:21 MDM MDM Narrative Medical decision making narrative: Narrative: Differential Diagnosis Differential Diagnosis: dehydration, sepsis, uti, pna Medical Records Medical records reviewed: Yes I reviewed the patient's medical records. Lab Data Lab results reviewed: Yes I reviewed the patient's lab results. Result diagrams: 05/28/22 07:36 Labs: Lab Results 05/28/22 05/28/22 05/28/22 Range/Units 07:35 07:35 07:36 WBC 8.0 (4.5-11.0) K/mcL RBC 4.14 (3.59-5.38) M/mcL Hgb 13.3 (11.2-15.7) g/dL Hct 41.8 (34.1-44.9) % POC Hct (36-48) MCV 101.0 H (80.0-100.0) fL MCH 32.1 (26.0-34.0) pg MCHC 31.8 (31.0-36.0) g/dL RDW 14.0 (11.5-14.5) % Plt Count 172 (140-440) K/mcL MPV 10.8 (8.8-12.5) fL Immature Gran % (Auto) 0.2 (0.0-0.5) % Neut % (Auto) 75.8 (38.0-78.0) % Lymph % (Auto) 13.2 L (15.5-49.0) % Pitt % (Auto) 9.4 (1.0-12.0) % Eos % (Auto) 1.2 (0.0-7.0) % Baso % (Auto) 0.2 (0.0-2.0) % Lymph # (Auto) 1.06 L (1.50-4.80) K/mcL Pitt # (Auto) 0.75 (0.10-0.90) K/mcL Eos # (Auto) 0.10 (0.00-0.70) K/mcL Baso # (Auto) 0.02 (0.00-0.30) K/mcL Immature Gran # 0.02 (0.00-0.05) K/mcl Absolute Neutrophils 6.06 (1.80-8.00) K/mcL POC VBG pH (7.32-7.42) POC VBG pCO2 at Temp (41-51) POC VBG pO2 (25-40) POC VBG HCO3 (24-28) POC VBG Total CO2 (25-29) POC Venous O2 Sat (40-70) POC VBG Base Excess (-2-2) VBG Lactic Acid (0.5-2) POC Sodium (133-145) POC Potassium (3.3-5.1) POC Chloride (96-108) POC Total CO2 (22-30) POC BUN (6-20) POC Creatinine (0.6-1.2) POC Glucose (70-105) POC WB Ioniz Calcium (1.16-1.32) Total Bilirubin (0.1-1.0) mg/dL Direct Bilirubin (<0.3) mg/dL AST (<32) U/L ALT (<40) U/L Alkaline Phosphatase (39-117) U/L Ammonia TNP NT-Pro-B Natriuret Pep 1798.0 H (<450.0) pg/mL Total Protein (5.9-8.4) gm/dL Albumin (3.2-5.2) gm/dL Globulin (2.2-3.7) gm/dL Procalcitonin (<0.10) ng/mL 05/28/22 05/28/22 05/28/22 Range/Units 07:36 07:36 07:36 WBC (4.5-11.0) K/mcL RBC (3.59-5.38) M/mcL Hgb (11.2-15.7) g/dL Hct (34.1-44.9) % POC Hct (36-48) MCV (80.0-100.0) fL MCH (26.0-34.0) pg MCHC (31.0-36.0) g/dL RDW (11.5-14.5) % Plt Count (140-440) K/mcL MPV (8.8-12.5) fL Immature Gran % (Auto) (0.0-0.5) % Neut % (Auto) (38.0-78.0) % Lymph % (Auto) (15.5-49.0) % Pitt % (Auto) (1.0-12.0) % Eos % (Auto) (0.0-7.0) % Baso % (Auto) (0.0-2.0) % Lymph # (Auto) (1.50-4.80) K/mcL Pitt # (Auto) (0.10-0.90) K/mcL Eos # (Auto) (0.00-0.70) K/mcL Baso # (Auto) (0.00-0.30) K/mcL Immature Gran # (0.00-0.05) K/mcl Absolute Neutrophils (1.80-8.00) K/mcL POC VBG pH 7.35 (7.32-7.42) POC VBG pCO2 at Temp 81.1 H* (41-51) POC VBG pO2 23 L (25-40) POC VBG HCO3 44.6 H* (24-28) POC VBG Total CO2 47.0 H* (25-29) POC Venous O2 Sat 34.0 L (40-70) POC VBG Base Excess 19.0 H* (-2-2) VBG Lactic Acid 1.5 (0.5-2) POC Sodium (133-145) POC Potassium (3.3-5.1) POC Chloride (96-108) POC Total CO2 (22-30) POC BUN (6-20) POC Creatinine (0.6-1.2) POC Glucose (70-105) POC WB Ioniz Calcium (1.16-1.32) Total Bilirubin 0.8 (0.1-1.0) mg/dL Direct Bilirubin 0.4 H (<0.3) mg/dL AST 32 H (<32) U/L ALT 45 H (<40) U/L Alkaline Phosphatase 108 (39-117) U/L Ammonia NT-Pro-B Natriuret Pep (<450.0) pg/mL Total Protein 7.4 (5.9-8.4) gm/dL Albumin 3.8 (3.2-5.2) gm/dL Globulin 3.6 (2.2-3.7) gm/dL Procalcitonin 0.16 H (<0.10) ng/mL 05/28/22 05/28/22 05/28/22 Range/Units 07:39 09:00 09:52 WBC (4.5-11.0) K/mcL RBC (3.59-5.38) M/mcL Hgb (11.2-15.7) g/dL Hct (34.1-44.9) % POC Hct 45.0 (36-48) MCV (80.0-100.0) fL MCH (26.0-34.0) pg MCHC (31.0-36.0) g/dL RDW (11.5-14.5) % Plt Count (140-440) K/mcL MPV (8.8-12.5) fL Immature Gran % (Auto) (0.0-0.5) % Neut % (Auto) (38.0-78.0) % Lymph % (Auto) (15.5-49.0) % Pitt % (Auto) (1.0-12.0) % Eos % (Auto) (0.0-7.0) % Baso % (Auto) (0.0-2.0) % Lymph # (Auto) (1.50-4.80) K/mcL Pitt # (Auto) (0.10-0.90) K/mcL Eos # (Auto) (0.00-0.70) K/mcL Baso # (Auto) (0.00-0.30) K/mcL Immature Gran # (0.00-0.05) K/mcl Absolute Neutrophils (1.80-8.00) K/mcL POC VBG pH 7.36 (7.32-7.42) POC VBG pCO2 at Temp 76.1 H* (41-51) POC VBG pO2 18 L (25-40) POC VBG HCO3 42.6 H* (24-28) POC VBG Total CO2 45.0 H* (25-29) POC Venous O2 Sat 22.0 L (40-70) POC VBG Base Excess 17.0 H* (-2-2) VBG Lactic Acid 1.0 (0.5-2) POC Sodium 134 (133-145) POC Potassium 3.4 (3.3-5.1) POC Chloride 84 L (96-108) POC Total CO2 44.0 H* (22-30) POC BUN 56 H (6-20) POC Creatinine 2.9 H (0.6-1.2) POC Glucose 152 H (70-105) POC WB Ioniz Calcium 1.12 L (1.16-1.32) Total Bilirubin (0.1-1.0) mg/dL Direct Bilirubin (<0.3) mg/dL AST (<32) U/L ALT (<40) U/L Alkaline Phosphatase (39-117) U/L Ammonia 17 NT-Pro-B Natriuret Pep (<450.0) pg/mL Total Protein (5.9-8.4) gm/dL Albumin (3.2-5.2) gm/dL Globulin (2.2-3.7) gm/dL Procalcitonin (<0.10) ng/mL ED POC Tests ED POC Tests: BERTA - Influenza A Negative BERTA - Influenza B Negative BERTA - SARS Antigen Negative Core Measures AMI Core Measures Followed: Yes Discharge Plan Patient/Caregiver Discharge Instructions Pt seen by MASTER TAX ADVISOR/PA only: No Clinical Impression: Hypercapnia, Generalized weakness, Acute dehydration, Acute kidney injury Fall Qualifiers: Encounter type: initial encounter Qualified Code(s): W19.XXXA - Unspecified fall, initial encounter Patient Disposition: Xfer As Outpt/Obs ([facility]) Condition: Fair Follow up with: Lissette Rivera ARNP [Primary Care Provider] - Prescriptions: No Action liothyronine 5 mcg tablet 5 mcg PO QDAY Qty: 90 1RF albuterol sulfate [Ventolin HFA] 90 mcg/actuation HFA aerosol inhaler 2 puff INHALATION QID Qty: 18 6RF Trelegy Ellipta 200-62.5-25 mcg blister with device 1 inh inhalation QDAY Qty: 60 4RF prednisone 10 mg tablet 40 mg PO QDAY Qty: 20 0RF Eliquis 5 mg tablet 5 mg PO BID Qty: 60 1RF losartan 100 mg tablet 100 mg PO QDAY Qty: 90 0RF (DME) Handicap Placard See Rx Instructions .Route .MEDSUPPLY Qty: 1 0RF Rx Instructions: Patient unable to walk more than 6 feet without significant difficulties breathing due to medical conditions. metoprolol succinate 25 mg tablet extended release 24 hr 50 mg PO .Q HS Qty: 90 1RF spironolactone 25 mg tablet 25 mg PO QDAY Qty: 30 2RF furosemide 20 mg tablet 40 mg PO QDAY trazodone 50 mg tablet 25 mg PO QHS levothyroxine 150 mcg tablet 1 tab PO QDAY sertraline 50 mg tablet 25 mg PO QDAY potassium chloride 10 mEq tablet extended release 1 tab PO QDAY diltiazem HCl 120 mg capsule,extended release 24hr 1 cap PO QDAY montelukast 10 mg tablet 10 mg PO DAILY
--- NOTE | 2022-05-28 08:04 | Cat Scan Report ---
History: Fell, weakness, anticoagulated TECHNIQUE: The brain was imaged without contrast in axial plane at 2.5 mm intervals. Sagittal and coronal reformats were created. The radiation exposure was limited using dose reduction technology. FINDINGS: There is no intracranial hemorrhage. No acute infarct edema or mass effect are present. There are stable age-related degenerative changes with mild atrophy, most apparent in the frontal lobes. There is also mild white matter ischemia or degeneration involving the frontal and parietal lobes. There is a 3 mm dystrophic calcification in the cortex in the uncus of the left temporal lobe. There has been no change compared with the prior exams. No abnormal extra-axial fluid collection is present. The bone windows show no skull fracture. The visualized sinuses are clear. IMPRESSION: Stable mild age-related degenerative changes and no acute abnormality. Dr. Atwood was called with the report Interpreted and Authenticated by: Prem Landeros 05/28/22
[2022-05-28] MEDS ORDERED: LORazepam 2 MG/ML VIAL IV ONE (08:34)
[2022-05-28 08:35] LABS: Basophils # (Auto) 0.02 K/mcL (0.00-0.30); Basophils % (Auto) 0.2 % (0.0-2.0); Eosinophils % (Auto) 1.2 % (0.0-7.0); Hematocrit 41.8 % (34.1-44.9); Hemoglobin 13.3 g/dL (11.2-15.7); Lymphocytes # (Auto) 1.06 K/mcL (1.50-4.80); Lymphocytes % (Auto) 13.2 % (15.5-49.0); Mean Corpuscular HGB Conc 31.8 g/dL (31.0-36.0); Mean Platelet Volume 10.8 fL (8.8-12.5); Monocytes # (Auto) 0.75 K/mcL (0.10-0.90); Monocytes % (Auto) 9.4 % (1.0-12.0); Neutrophils % (Auto) 75.8 % (38.0-78.0); Platelet Count 172 K/mcL (140-440); RBC 4.14 M/mcL (3.59-5.38)
[2022-05-28 09:03] LABS: ALT/SGPT 45 U/L (<40); AST/SGOT 32 U/L (<32); Albumin 3.8 gm/dL (3.2-5.2); Alkaline Phosphatase 108 U/L (39-117); Bilirubin,Direct 0.4 mg/dL (<0.3); Bilirubin,Total 0.8 mg/dL (0.1-1.0); Globulin 3.6 gm/dL (2.2-3.7)
[2022-05-28] MEDS ORDERED: FUROSEMIDE 40 MG/4 ML VIAL IV ONE (09:08)
[2022-05-28] MEDS ORDERED: ACETAMINOPHEN 325 MG TABLET PO PRN (13:25)
[2022-05-28] MEDS: LACTATED RINGERS 1,000 ML IV SCH (14:07)
[2022-05-28] MEDS: methylPREDNISolone SOD SUCC 125 MG/2 ML VIAL IV SCH ×2 (14:12→21:25)
[2022-05-28] MEDS: cefTRIAXone 1 GM VIAL IV SCH (14:13)
[2022-05-28] MEDS: 0.9 % SODIUM CHLORIDE 10 ML SYRINGE IV SCH ×2 (14:13→20:38)
[2022-05-28 14:16] LABS: Blood Urea Nitrogen 62 mg/dL (8-23); Calcium 9.5 mg/dL (8.6-10.4); Carbon Dioxide 41 mmol/L (22-30); Chloride 88 mmol/L (96-108); Glomerular Filtration Rate 15; Glucose 124 mg/dL (70-105)
--- NOTE | 2022-05-28 14:58 | Internal Med History&Physical ---
HPI History of Present Illness Patient information: Note initiated : 05/28/22 at 2:52 pm Service Date, if different from initiated Date: [] Patient: George Ma 81 y/o F admitted on 05/28/22 for Weak, fall. Chief Complaint: [Dizziness, fall] Chief complaint: Acute encephalopathy, weakness History of present illness: Ms. Ma is a 81 year old F with a complex past medical history significant for pulmonary fibrosis, congestive heart failure, GREGORY, DVT, and hypothyroidism who presents to the hospital after a ground-level fall in the bathroom this morning. The patient states that she has been feeling quite lightheaded over the last week or so and has had multiple falls. The patient was recently seen by her family doctor on May 13. She was to be set up with home health and hospice as well. The patient is on furosemide, losartan, and Toprol-XL at home. On arrival she was hemodynamically stable and afebrile. She was temporized with BiPAP as she was found to have PCO2 of 80 on her VBG. At baseline, the patient is on supplemental O2 at home. The patient's BMP also revealed a creatinine of 2.8. She was hypotensive with a blood pressure of 82/54 on presentation. The hospitalist service was asked admit the patient for further management and evaluation of her failure to thrive. Review of Systems All systems: reviewed and no additional remarkable complaints except as stated Constitutional Constitutional: Present as per HPI EENT Eyes: Present as per HPI; Absent blurry vision Cardiovascular Cardiovascular: Present as per HPI; Absent chest pain, dyspnea, dyspnea on exertion, leg edema or palpatations Respiratory Respiratory: Present as per HPI; Absent cough, dyspnea, dyspnea on exertion, wheezing or stridor Gastrointestinal Gastrointestinal: Present as per HPI; Absent abdominal pain, diarrhea, dysphagia, hematemesis, melena, nausea or vomiting Musculoskeletal Musculoskeletal: Present as per HPI; Absent joint swelling, limited range of motion, muscle cramps, muscle weakness or myalgias Integumentary Integumentary: Present as per HPI; Absent erythema, new lesions, rash or wounds Neurological Neurological: Present as per HPI; Absent abnormal gait, behavioral changes, focal weakness, headache(s), loss of vision, numbness, sensory deficit or syncope Endocrine Endocrine: Absent change in body appearance, fatigue or heat intolerance Hematologic/Lymphatic Hematologic/Lymphatic: Present as per HPI PFSH PFSH All Active Problems (Updated 05/28/22 @ 09:48 by Ferny Atwood DO) Hypercapnia (Acute) Fall (Acute) Generalized weakness (Acute) Acute dehydration (Acute) Acute kidney injury (Acute) Acute and chronic respiratory failure with hypoxia (Acute) COVID-19 virus infection (Acute) Sepsis, viral (Acute) Influenza B (Acute) Anxiety (Acute) Insomnia (Acute) Anxiety (Acute) Bilateral chronic knee pain (Acute) Restrictive lung disease (Chronic) Post covid-19 condition, unspecified (Acute) Acute congestive heart failure (Acute) Acute pneumonia (Acute) CHF (congestive heart failure) (Acute) Afib (Chronic) Dyspnea (Acute) GREGORY (obstructive sleep apnea) (Chronic) Pulmonary fibrosis (Chronic) Acute bronchitis (Chronic) Deep vein thrombosis of lower extremity (Chronic) Asymptomatic hypertensive urgency (Acute) Fever (Acute) Obesity (BMI 30.0-34.9) (Chronic) Hypothyroidism, acquired (Chronic) Asthma, mild intermittent (Chronic) Hypertension, essential (Chronic) Sinusitis (Chronic) Mild congestive heart failure (Chronic) Insulin resistance syndrome (Chronic) Snoring (Chronic) Chronic rhinitis (Chronic) Secondary pulmonary arterial hypertension (Chronic) Abnormal pulmonary function test (Chronic) Asthma (Chronic) Left ventricular hypertrophy (Chronic) Secondary pulmonary hypertension (Chronic) Hyperplastic colonic polyp (Chronic) Bilateral primary osteoarthritis of knee (Chronic) Bilateral knee pain (Acute) History of varicose veins (Chronic) History of deep venous thrombosis (Chronic) Decreased circulation (Chronic) Multiple joint pain (Chronic) Chronic pulmonary congestion (Chronic) CHF (congestive heart failure) (Chronic) Encounter for long-term (current) use of medications (Chronic) Hyperlipidemia (Chronic) Skin rash (Chronic) Skin lesion (Chronic) Allergic rhinitis (Chronic) Stress (Chronic) Hypothyroidism (Chronic) Anxiety and depression (Chronic) Special screening for malignant neoplasms, colon (Chronic) Weight gain (Chronic) Multiple nevi (Chronic) Left shoulder pain (Chronic) Fatigue (Chronic) Screening for malignant neoplasm of cervix (Chronic) Bone spur (Chronic) Keratosis (Chronic) History of bronchitis (Chronic ~2017) Deep vein thrombosis (DVT) of right lower extremity (Chronic ~05/2017) Insomnia, unspecified (Acute) Right lower quadrant pain (Acute) Hypertension, essential (Acute) Constipation (Acute) Stress (Acute) Hyperlipidemia (Acute) Lumbar radiculopathy (Acute) Stage III chronic kidney disease (Acute) Skin mole (Acute) Hypersomnia (Chronic) Nocturnal hypoxia (Chronic) Elevated antinuclear antibody (KOTA) level (Acute) Fluid retention (Acute) Medical History Abnormal pulmonary function test Acute bronchitis Allergic rhinitis Anxiety and depression Asthma Asthma, mild intermittent Bilateral knee pain Bilateral primary osteoarthritis of knee Bone spur CHF (congestive heart failure) Chronic pulmonary congestion Chronic rhinitis Decreased circulation Deep vein thrombosis (DVT) of right lower extremity (~05/2017) Deep vein thrombosis of lower extremity Elevated antinuclear antibody (KOTA) level Encounter for long-term (current) use of medications Fatigue History of bronchitis (~2016) History of deep venous thrombosis History of varicose veins Hyperlipidemia Hyperplastic colonic polyp Hypersomnia Hypertension, essential Hypothyroidism Hypothyroidism, acquired Insulin resistance syndrome Keratosis Left shoulder pain Left ventricular hypertrophy Mild congestive heart failure Multiple joint pain Multiple nevi Nocturnal hypoxia Obesity (BMI 30.0-34.9) GREGORY (obstructive sleep apnea) Restrictive lung disease Screening for malignant neoplasm of cervix Secondary pulmonary arterial hypertension Secondary pulmonary hypertension Sinusitis Skin lesion Skin rash Snoring Special screening for malignant neoplasms, colon Stress Weight gain Surgical History History of colonoscopy (03/31/18) performed by Dr. Frye History of skin cancer (~07/2013) on face History of tonsillectomy Family History Mother , Age 86 Liver cancer Daughter Asthma Unknown Hypertension Father , Age 95 No problems noted. Social History occupational status: retired smoking status: Former smoker substance use type: does not use MEDS/ALLERGIES Home Medications and Allergies Home Medications Medication Instructions Recorded Confirmed Type Handicap Placard #1 ea 04/18/21 05/28/22 Rx furosemide 20 mg tablet 40 mg PO QDAY FLUID RETENTION 12/04/21 05/28/22 History liothyronine 5 mcg tablet 5 mcg PO QDAY #90 tabs 12/04/21 05/28/22 Rx albuterol sulfate 90 mcg/actuation 2 puff inhalation QID #18 grams 03/31/22 05/28/22 Rx aerosol inhaler (Ventolin HFA) metoprolol succinate 25 mg 50 mg PO .Q HS #90 tabs 04/06/22 05/28/22 Rx tablet,extended release 24 hr fluticasone fur. 200 mcg-umeclid 1 inh inhalation QDAY #60 ea 05/04/22 05/28/22 Rx 62.5 mcg-vilant 25 mcg inhalat.powder (Trelegy Ellipta) diltiazem HCl 120 mg 120 mg PO QDAY 05/05/22 05/28/22 History capsule,extended release 24 hr levothyroxine 150 mcg tablet 150 mcg PO QAMAC 05/05/22 05/28/22 History montelukast 10 mg tablet 10 mg PO DAILY 05/05/22 05/28/22 History potassium chloride 10 mEq 10 meq PO QAMCC 05/05/22 05/28/22 History tablet,extended release sertraline 50 mg tablet 25 mg PO QDAY 05/05/22 05/28/22 History apixaban 5 mg tablet (Eliquis) 5 mg PO BID #60 tabs 05/22/22 05/28/22 Rx losartan 100 mg tablet 100 mg PO QDAY #90 tabs 05/26/22 05/28/22 Rx Allergies Allergy/AdvReac Type Severity Reaction Status Date / Time codeine AdvReac Mild Confusion Verified 05/28/22 07:07 meperidine [From Demerol] AdvReac Mild Vomiting Verified 05/28/22 07:07 wool AdvReac Mild itch Verified 05/28/22 07:07 EXAM Constitutional Vitals: Temp Pulse Resp BP Pulse Ox O2 Del Method O2 Flow Rate 97.7 F 61 23 H 104/67 100 6 05/28/22 13:26 05/28/22 14:01 05/28/22 14:01 05/28/22 14:01 05/28/22 14:01 05/28/22 14:01 05/28/22 14:01 General appearance: average body habitus Head Head exam: Present atraumatic, normal inspection and normocephalic Eye Eye exam: Present EOMI, normal appearance and PERRL; Absent conjunctival injection ENT ENT exam: Present normal exam; Absent mucous membranes dry Neck Neck exam: Present full ROM; Absent lymphadenopathy Respiratory Respiratory exam: Present normal respiratory exam and CTAB; Absent decreased breath sounds, respiratory distress or wheezes Cardiovascular Cardiovascular exam: Present normal rate and rhythm and RRR; Absent JVD GI/Abdominal GI/Abdominal exam: Present normal bowel sounds and soft; Absent diminished bowel sounds, distended, guarding, mass, rebound or tenderness Neurological Exam Neurological exam: Present alert, CN II-XII intact and oriented X3 Psychiatric Psychiatric exam: Present normal affect and normal mood Skin Skin exam: Present intact and warm; Absent erythema, pallor, petechiae or rash DATA Data Completed and Pending Labs: Labs from last 24 hours 05/28/22 05/28/22 05/28/22 11:56 11:56 11:53 WBC RBC Hgb Hct POC Hct MCV MCH MCHC RDW Plt Count MPV Immature Gran % (Auto) Neut % (Auto) Lymph % (Auto) Gaston % (Auto) Eos % (Auto) Baso % (Auto) Lymph # (Auto) [place] # (Auto) Eos # (Auto) Baso # (Auto) Immature Gran # Absolute Neutrophils POC VBG pH 7.39 POC VBG pCO2 at Temp 68.1 H* POC VBG pO2 20 L POC VBG HCO3 40.9 H* POC VBG Total CO2 43.0 H* POC Venous O2 Sat 28.0 L POC VBG Base Excess 16.0 H* VBG Lactic Acid 1.4 POC Sodium Sodium 134 POC Potassium Potassium 3.2 L POC Chloride Chloride 88 L Carbon Dioxide 41 H* POC Total CO2 Anion Gap 5.0 L POC BUN BUN 62 H Creatinine 2.8 H POC Creatinine GFR Calculation 15 Glucose 124 H POC Glucose Calcium 9.5 POC WB Ioniz Calcium Total Bilirubin Direct Bilirubin AST ALT Alkaline Phosphatase Ammonia Troponin T 0.02 NT-Pro-B Natriuret Pep Total Protein Albumin Globulin Procalcitonin 05/28/22 05/28/22 05/28/22 09:52 09:00 07:39 WBC RBC Hgb Hct POC Hct 45.0 MCV MCH MCHC RDW Plt Count MPV Immature Gran % (Auto) Neut % (Auto) Lymph % (Auto) Gaston % (Auto) Eos % (Auto) Baso % (Auto) Lymph # (Auto) [place]aston # (Auto) Eos # (Auto) Baso # (Auto) Immature Gran # Absolute Neutrophils POC VBG pH 7.36 POC VBG pCO2 at Temp 76.1 H* POC VBG pO2 18 L POC VBG HCO3 42.6 H* POC VBG Total CO2 45.0 H* POC Venous O2 Sat 22.0 L POC VBG Base Excess 17.0 H* VBG Lactic Acid 1.0 POC Sodium 134 Sodium POC Potassium 3.4 Potassium POC Chloride 84 L Chloride Carbon Dioxide POC Total CO2 44.0 H* Anion Gap POC BUN 56 H BUN Creatinine POC Creatinine 2.9 H GFR Calculation Glucose POC Glucose 152 H Calcium POC WB Ioniz Calcium 1.12 L Total Bilirubin Direct Bilirubin AST ALT Alkaline Phosphatase Ammonia 17 Troponin T NT-Pro-B Natriuret Pep Total Protein Albumin Globulin Procalcitonin 05/28/22 05/28/22 05/28/22 07:36 07:36 07:36 WBC RBC Hgb Hct POC Hct MCV MCH MCHC RDW Plt Count MPV Immature Gran % (Auto) Neut % (Auto) Lymph % (Auto) Gaston % (Auto) Eos % (Auto) Baso % (Auto) Lymph # (Auto) Gaston # (Auto) Eos # (Auto) Baso # (Auto) Immature Gran # Absolute Neutrophils POC VBG pH 7.35 POC VBG pCO2 at Temp 81.1 H* POC VBG pO2 23 L POC VBG HCO3 44.6 H* POC VBG Total CO2 47.0 H* POC Venous O2 Sat 34.0 L POC VBG Base Excess 19.0 H* VBG Lactic Acid 1.5 POC Sodium Sodium POC Potassium Potassium POC Chloride Chloride Carbon Dioxide POC Total CO2 Anion Gap POC BUN BUN Creatinine POC Creatinine GFR Calculation Glucose POC Glucose Calcium POC WB Ioniz Calcium Total Bilirubin 0.8 Direct Bilirubin 0.4 H AST 32 H ALT 45 H Alkaline Phosphatase 108 Ammonia Troponin T NT-Pro-B Natriuret Pep Total Protein 7.4 Albumin 3.8 Globulin 3.6 Procalcitonin 0.16 H 05/28/22 05/28/22 05/28/22 07:36 07:35 07:35 WBC 8.0 RBC 4.14 Hgb 13.3 Hct 41.8 POC Hct MCV 101.0 H MCH 32.1 MCHC 31.8 RDW 14.0 Plt Count 172 MPV 10.8 Immature Gran % (Auto) 0.2 Neut % (Auto) 75.8 Lymph % (Auto) 13.2 L Gaston % (Auto) 9.4 Eos % (Auto) 1.2 Baso % (Auto) 0.2 Lymph # (Auto) 1.06 L G[place] # (Auto) 0.75 Eos # (Auto) 0.10 Baso # (Auto) 0.02 Immature Gran # 0.02 Absolute Neutrophils 6.06 POC VBG pH POC VBG pCO2 at Temp POC VBG pO2 POC VBG HCO3 POC VBG Total CO2 POC Venous O2 Sat POC VBG Base Excess VBG Lactic Acid POC Sodium Sodium POC Potassium Potassium POC Chloride Chloride Carbon Dioxide POC Total CO2 Anion Gap POC BUN BUN Creatinine POC Creatinine GFR Calculation Glucose POC Glucose Calcium POC WB Ioniz Calcium Total Bilirubin Direct Bilirubin AST ALT Alkaline Phosphatase Ammonia TNP Troponin T NT-Pro-B Natriuret Pep 1798.0 H Total Protein Albumin Globulin Procalcitonin A/P Assessment and plan (1) Hypercapnia: Status: Acute (2) Fall: Status: Acute Qualifiers: Encounter type: initial encounter Qualified Code(s): W19.XXXA - Unspecified fall, initial encounter (3) Generalized weakness: Status: Acute (4) Acute dehydration: Status: Acute (5) Acute kidney injury: Status: Acute (6) Acute and chronic respiratory failure with hypoxia: Status: Acute (7) CHF (congestive heart failure): Status: Acute (8) Afib: Status: Chronic Qualifiers: Atrial fibrillation type: unspecified chronic Qualified Code(s): I48.20 - Chronic atrial fibrillation, unspecified (9) Pulmonary fibrosis: Status: Chronic Narrative A/P Narrative: The patient was hypotensive with a blood pressure of 82/54 as well as having acute kidney injury with a creatinine of 2.8. The patient's home antihypertensives and diuretics will be held including Toprol-XL, losartan, and furosemide. She will be hydrated with IV fluids and LR 100 cc an hour. We will monitor her blood pressure closely and trend daily BMP. In terms of dizziness, this was likely in the setting of orthostasis. Once clinically improved, she will work with PT/OT. Continue supplemental O2 and CPAP as needed. Patient's CODE STATUS is DNR/DNI Time Spent With Patient Time: Total time spent is greater than 50% in coordination of care (as documented) at patient's floor/unit and/or counseling patient: Initial: Total time with patient: 55 - 74 minutes Critical Care Time: Yes QUALITY Stroke Symptom Onset Unknown: No VTE Deep Vein Thrombosis/Pulmonary Embolism Present on Admission: No
[2022-05-28] MEDS: AZITHROMYCIN 500 MG in DEXTROSE 5% IN WATER 250 ML IV SCH (16:00)
[2022-05-28] MEDS: IPRATROPIUM/ALBUTEROL 3 ML AMPUL.NEB NEB SCH ×2 (17:34→19:31)
[2022-05-28] MEDS: BUDESONIDE 0.5 MG/2 ML AMPUL.NEB NEB SCH (19:31)
[2022-05-28] MEDS: APIXABAN 5 MG TABLET PO SCH (20:38)
[2022-05-28 23:01] LABS: Blood Urea Nitrogen 60 mg/dL (8-23); Calcium 8.9 mg/dL (8.6-10.4); Carbon Dioxide 35 mmol/L (22-30); Chloride 89 mmol/L (96-108); Glomerular Filtration Rate 21; Glucose 159 mg/dL (70-105)
[2022-05-29] MEDS: LACTATED RINGERS 1,000 ML IV SCH ×4 (01:28→22:22)
[2022-05-29] MEDS: IPRATROPIUM/ALBUTEROL 3 ML AMPUL.NEB NEB SCH ×4 (01:30→19:24)
[2022-05-29] MEDS: 0.9 % SODIUM CHLORIDE 10 ML SYRINGE IV SCH ×3 (04:41→20:24)
[2022-05-29 06:07] LABS: Basophils # (Auto) 0 K/mcL (0.00-0.30); Basophils % (Auto) 0 % (0.0-2.0); Eosinophils # (Auto) 0 K/mcL (0.00-0.70); Eosinophils % (Auto) 0 % (0.0-7.0); Hematocrit 37.8 % (34.1-44.9); Hemoglobin 12.5 g/dL (11.2-15.7); Lymphocytes # (Auto) 0.31 K/mcL (1.50-4.80); Lymphocytes % (Auto) 5.2 % (15.5-49.0); Mean Corpuscular HGB Conc 33.1 g/dL (31.0-36.0); Mean Platelet Volume 11.1 fL (8.8-12.5); Monocytes # (Auto) 0.13 K/mcL (0.10-0.90); Monocytes % (Auto) 2.2 % (1.0-12.0); Neutrophils % (Auto) 92.1 % (38.0-78.0); Platelet Count 147 K/mcL (140-440); RBC 3.78 M/mcL (3.59-5.38); Red Cell Distribution Width 13.6 % (11.5-14.5)
[2022-05-29] MEDS: BUDESONIDE 0.5 MG/2 ML AMPUL.NEB NEB SCH ×2 (07:37→19:25)
[2022-05-29] MEDS: methylPREDNISolone SOD SUCC 125 MG/2 ML VIAL IV SCH ×3 (07:45→22:27)
[2022-05-29] MEDS: LEVOTHYROXINE 150 MCG TABLET PO SCH (07:48)
[2022-05-29] MEDS: APIXABAN 5 MG TABLET PO SCH ×2 (09:30→20:25)
[2022-05-29] MEDS: AZITHROMYCIN 500 MG in DEXTROSE 5% IN WATER 250 ML IV SCH (09:30)
[2022-05-29] MEDS: cefTRIAXone 1 GM VIAL IV SCH (09:31)
[2022-05-29] MEDS: LIOTHYRONINE 5 MCG TABLET PO SCH (09:31)
--- NOTE | 2022-05-29 10:22 | Internal Med Progress Note ---
SUBJECTIVE Subjective Patient information: Note initiated : 05/29/22 at 10:21 am Service Date, if different from initiated Date: [] Patient: George Ma 81 y/o F admitted on 05/28/22 for Weak, fall. Chief Complaint: [Dizziness, falls] Principal diagnosis: Acute hypercapnic respiratory failure, TAM, drug-induced hypotension Interval history: The patient was resting comfortably in bed. She is looking and feeling much bet ter today. Discussed plan of care with the RN. She will be transferred to [facility] today. Constitutional Vitals: Vital Signs Temp Pulse Resp BP Pulse Ox O2 Del Method O2 Flow Rate 97.7 F 67 16 113/65 95 1.5 05/29/22 08:01 05/29/22 09:01 05/29/22 09:01 05/29/22 09:01 05/29/22 09:01 05/29/22 09:01 05/29/22 09:01 Period Temp Pulse Resp BP Sys/Figueredo Pulse Ox O2 Del Method O2 Flow Rate Last 24 Hr 97.2 F-97.9 F 48-113 12-28 82-134/49-89 90-100 Nasal Cannula- Nasal Cannula 1.5-6 Intake and Output 05/28/22 05/29/22 05/29/22 19:59 03:59 11:59 Intake Total 250 1360 50 Output Total 1290 670 246 Balance -1040 690 -196 Weight 90.991 kg 94.846 kg Intake & Output: Intake & Output 05/28/22 05/29/22 05/29/22 19:59 03:59 11:59 Intake Total 250 1360 50 Output Total 1290 670 246 Balance -1040 690 -196 Weight 90.991 kg 94.846 kg Intake: IV 250 1000 Zithromax 500 mg In Dextrose 5% 250 in Water 250 ml @ 250 mls/hr IV Q24H [facility] Rx#:[id number] Lactated Ringers 1,000 ml @ 100 1000 mls/hr IV .Q10H [facility] Rx#: [id number] Oral 360 50 Output: Urine Catheter Amount 1290 570 120 Void Amount 100 125 # of times incontinent of urine 1 Other: Meal Breakfast Percent of Meal Consumed 75% Feeding Ability Assist with Tray Set Up Urine Appearance Clear Clear Cloudy Uretheral (Horan) Clear Clear Urine Color Yellow Yellow Yellow Uretheral (Horan) Pale Pale Urine Odor Normal Normal Normal Uretheral (Horan) Normal Stool Size Small Stool Color Brown Stool Consistency Dry and Hard # Voids 1 # Bowel Movements 1 Head Head exam: Present atraumatic and normal inspection Eye Eye exam: Present normal appearance ENT ENT exam: Present mucous membranes moist, normal exam and normal external ear exam Neck Neck exam: Present normal inspection Respiratory Respiratory exam: Present normal respiratory exam Cardiovascular Cardiovascular exam: Present normal rate and rhythm GI/Abdominal GI/Abdominal exam: Present normal bowel sounds Back Exam Back exam: Present normal inspection Neurological Exam Neurological exam: Present alert and oriented X3 Skin Skin exam: Present intact and warm OBJ DATA Labs CBC & Chem 7: 05/29/22 05:17 05/28/22 21:37 Labs: Abnormal Lab Results 05/29/22 05/28/22 05/28/22 05:17 21:37 11:56 MCV Neut % (Auto) 92.1 H Lymph % (Auto) 5.2 L Lymph # (Auto) 0.31 L POC VBG pCO2 at Temp POC VBG pO2 POC VBG HCO3 POC VBG Total CO2 POC Venous O2 Sat POC VBG Base Excess Potassium 3.2 L POC Chloride Chloride 89 L 88 L Carbon Dioxide 35 H 41 H* POC Total CO2 Anion Gap 5.0 L POC BUN BUN 60 H 62 H Creatinine 2.2 H 2.8 H POC Creatinine Glucose 159 H 124 H POC Glucose POC WB Ioniz Calcium Direct Bilirubin AST ALT NT-Pro-B Natriuret Pep Procalcitonin 05/28/22 05/28/22 05/28/22 11:53 09:52 07:39 MCV Neut % (Auto) Lymph % (Auto) Lymph # (Auto) POC VBG pCO2 at Temp 68.1 H* 76.1 H* POC VBG pO2 20 L 18 L POC VBG HCO3 40.9 H* 42.6 H* POC VBG Total CO2 43.0 H* 45.0 H* POC Venous O2 Sat 28.0 L 22.0 L POC VBG Base Excess 16.0 H* 17.0 H* Potassium POC Chloride 84 L Chloride Carbon Dioxide POC Total CO2 44.0 H* Anion Gap POC BUN 56 H BUN Creatinine POC Creatinine 2.9 H Glucose POC Glucose 152 H POC WB Ioniz Calcium 1.12 L Direct Bilirubin AST ALT NT-Pro-B Natriuret Pep Procalcitonin 05/28/22 05/28/22 05/28/22 07:36 07:36 07:36 MCV Neut % (Auto) Lymph % (Auto) Lymph # (Auto) POC VBG pCO2 at Temp 81.1 H* POC VBG pO2 23 L POC VBG HCO3 44.6 H* POC VBG Total CO2 47.0 H* POC Venous O2 Sat 34.0 L POC VBG Base Excess 19.0 H* Potassium POC Chloride Chloride Carbon Dioxide POC Total CO2 Anion Gap POC BUN BUN Creatinine POC Creatinine Glucose POC Glucose POC WB Ioniz Calcium Direct Bilirubin 0.4 H AST 32 H ALT 45 H NT-Pro-B Natriuret Pep Procalcitonin 0.16 H 05/28/22 05/28/22 07:36 07:35 MCV 101.0 H Neut % (Auto) Lymph % (Auto) 13.2 L Lymph # (Auto) 1.06 L POC VBG pCO2 at Temp POC VBG pO2 POC VBG HCO3 POC VBG Total CO2 POC Venous O2 Sat POC VBG Base Excess Potassium POC Chloride Chloride Carbon Dioxide POC Total CO2 Anion Gap POC BUN BUN Creatinine POC Creatinine Glucose POC Glucose POC WB Ioniz Calcium Direct Bilirubin AST ALT NT-Pro-B Natriuret Pep 1798.0 H Procalcitonin Meds: Medications Acetaminophen (Acetaminophen 325 Mg Tablet) 650 mg PO Q4-6HP PRN; Protocol PRN Reason: Per Pain Protocol/Fever > 101 Albuterol/Ipratropium (Ipratropium/Albuterol 3 Ml Ampul.Neb) 3 ml NEB Q6HRT [facility] Last Admin: 05/29/22 07:37 Dose: 3 ml Apixaban (Apixaban 5 Mg Tablet) 5 mg PO BID [facility] Last Admin: 05/29/22 09:30 Dose: 5 mg Budesonide (Budesonide 0.5 Mg/2 Ml Ampul.Neb) 0.5 mg NEB Q12 [facility] Last Admin: 05/29/22 07:37 Dose: 0.5 mg Ceftriaxone Sodium (Ceftriaxone 1 Gm Vial) 1 gm IV Q24H [facility]; Protocol Last Admin: 05/29/22 09:31 Dose: 1 gm Lactated Ringer's (Lactated Ringers) 1,000 mls @ 100 mls/hr IV .Q10H [facility] Last Admin: 05/29/22 01:28 Dose: 100 mls/hr Azithromycin 500 mg/ Dextrose 250 mls @ 250 mls/hr IV Q24H [facility]; Protocol Stop: 05/30/22 15:59 Last Admin: 05/29/22 09:30 Dose: 250 mls/hr Levothyroxine Sodium (Levothyroxine 150 Mcg Tablet) 150 mcg PO QAMAC [facility] Last Admin: 05/29/22 07:48 Dose: 150 mcg Liothyronine Sodium (Liothyronine 5 Mcg Tablet) 5 mcg PO QDAY [facility] Last Admin: 05/29/22 09:31 Dose: 5 mcg Methylprednisolone Sodium Succinate (Methylprednisolone Sod Succ 125 Mg/2 Ml Vial) 80 mg IV Q8 [facility] Last Admin: 05/29/22 07:45 Dose: 80 mg Sodium Chloride (0.9 % Sodium Chloride 10 Ml Syringe) 10 ml IV Q8 [facility] Last Admin: 05/29/22 04:41 Dose: Not Given A/P Assessment and plan (1) Hypercapnia: Status: Acute (2) Fall: Status: Acute Qualifiers: Encounter type: initial encounter Qualified Code(s): W19.XXXA - Unspecified fall, initial encounter (3) Generalized weakness: Status: Acute (4) Acute dehydration: Status: Acute (5) Acute kidney injury: Status: Acute (6) Acute and chronic respiratory failure with hypoxia: Status: Acute (7) CHF (congestive heart failure): Status: Acute (8) Afib: Status: Chronic Qualifiers: Atrial fibrillation type: unspecified chronic Qualified Code(s): I48.20 - Chronic atrial fibrillation, unspecified (9) Pulmonary fibrosis: Status: Chronic Narrative A/P Narrative: The patient was hypotensive with a blood pressure of 82/54 as well as having acute kidney injury with a creatinine of 2.8. The patient's home antihypertensives and diuretics will be held including Toprol-XL, losartan, and furosemide. She will be hydrated with IV fluids and LR 100 cc an hour. We will monitor her blood pressure closely and trend daily BMP. In terms of dizziness, this was likely in the setting of orthostasis. Once clinically improved, she will work with PT/OT. Continue supplemental O2 and CPAP as needed. Patient's CODE STATUS is DNR/DNI 05/29: The patient's TAM is improving with IV fluids. Her creatinine is down from 2.9-2.0. Her hypotension is also improving. We continue to hold her home antihypertensives. In terms of her pulmonary fibrosis, she was likely hypercapnic in the setting of encephalopathy from hypotension. She was temporized with BiPAP and her PCO2 has improved. She is now back down to her baseline supplemental O2 requirement. Continue nebulizers and IV Solu-Medrol for the time being as she has underlying pulmonary fibrosis. Time Spent With Patient Time: Total time spent is greater than 50% in coordination of care (as documented) at patient's floor/unit and/or counseling patient: Subsequent: Total time with patient: 25 - 34 minutes QUALITY Stroke Symptom Onset Unknown: No VTE Deep Vein Thrombosis/Pulmonary Embolism Present on Admission: No
[2022-05-30] MEDS: IPRATROPIUM/ALBUTEROL 3 ML AMPUL.NEB NEB SCH ×4 (00:25→19:18)
[2022-05-30] MEDS: methylPREDNISolone SOD SUCC 125 MG/2 ML VIAL IV SCH ×3 (05:17→21:47)
[2022-05-30] MEDS: 0.9 % SODIUM CHLORIDE 10 ML SYRINGE IV SCH ×3 (05:18→21:58)
[2022-05-30] MEDS: LACTATED RINGERS 1,000 ML IV SCH ×3 (05:26→14:37)
[2022-05-30 06:42] LABS: Basophils # (Auto) 0 K/mcL (0.00-0.30); Basophils % (Auto) 0 % (0.0-2.0); Eosinophils # (Auto) 0 K/mcL (0.00-0.70); Eosinophils % (Auto) 0 % (0.0-7.0); Hematocrit 38.9 % (34.1-44.9); Hemoglobin 12.8 g/dL (11.2-15.7); Lymphocytes # (Auto) 0.27 K/mcL (1.50-4.80); Lymphocytes % (Auto) 2.7 % (15.5-49.0); Mean Cell Volume 98.7 fL (80.0-100.0); Mean Corpuscular HGB Conc 32.9 g/dL (31.0-36.0); Mean Platelet Volume 10.7 fL (8.8-12.5); Monocytes % (Auto) 2.9 % (1.0-12.0); Platelet Count 173 K/mcL (140-440); RBC 3.94 M/mcL (3.59-5.38); Red Cell Distribution Width 13.9 % (11.5-14.5); WBC 10.2 K/mcL (4.5-11.0)
[2022-05-30 07:15] LABS: ALT/SGPT 33 U/L (<40); AST/SGOT 25 U/L (<32); Albumin 3.4 gm/dL (3.2-5.2); Alkaline Phosphatase 94 U/L (39-117); Bilirubin,Total 0.5 mg/dL (0.1-1.0); Blood Urea Nitrogen 58 mg/dL (8-23); Calcium 9.4 mg/dL (8.6-10.4); Carbon Dioxide 30 mmol/L (22-30); Chloride 86 mmol/L (96-108); Globulin 3.4 gm/dL (2.2-3.7); Glomerular Filtration Rate 28; Glucose 188 mg/dL (70-105)
[2022-05-30] MEDS: LEVOTHYROXINE 150 MCG TABLET PO SCH (07:31)
[2022-05-30] MEDS: BUDESONIDE 0.5 MG/2 ML AMPUL.NEB NEB SCH ×2 (08:08→19:18)
[2022-05-30] MEDS: APIXABAN 5 MG TABLET PO SCH ×2 (09:08→21:46)
[2022-05-30] MEDS: cefTRIAXone 1 GM VIAL IV SCH (09:09)
[2022-05-30] MEDS: LIOTHYRONINE 5 MCG TABLET PO SCH (09:09)
[2022-05-30] MEDS: AZITHROMYCIN 500 MG in DEXTROSE 5% IN WATER 250 ML IV SCH (10:42)
--- NOTE | 2022-05-30 16:32 | Internal Med Progress Note ---
SUBJECTIVE Subjective Patient information: Note initiated : 05/30/22 at 4:28 pm Service Date, if different from initiated Date: [] Patient: George Ma 81 y/o F admitted on 05/28/22 for Weak, fall. Chief Complaint: [] Principal diagnosis: Acute hypercapnic respiratory failure, TAM, drug-induced hypotension Interval history: 05/30: Patient is on 3 L/min oxygen therapy this morning. Afebrile overnight. BUN/Cr 58/1.7 today. Patient is commenting of the same degree of shortness of breath. She is also commenting of mild cough and wheezing. She denies any chest pain. She denies any fever chills or diaphoresis. Continue to titrate supplemental oxygen therapy as needed, by mind that she used up to 3 L/min of home oxygen. Saline lock the patient. Will finish off Solu- Medrol today. Continue DuoNeb, Pulmicort, for pulmonary fibrosis. Continue Rocephin and azithromycin for differential diagnosis of pneumonia. Continue Eliquis for atrial fibrillation. Continue thyroid replacement therapy for hypothyroidism. Continue physical therapy and Occupational Therapy evaluation and treatment for placement planning. Constitutional Vitals: Vital Signs Temp Pulse Resp BP Pulse Ox O2 Del Method O2 Flow Rate 36.8 C 84 16 126/77 97 3 05/30/22 12:00 05/30/22 13:25 05/30/22 13:25 05/30/22 12:00 05/30/22 13:25 05/30/22 13:25 05/30/22 13:25 Period Temp Pulse Resp BP Sys/Figueredo Pulse Ox O2 Del Method O2 Flow Rate Last 24 Hr 36.5 C-36.9 C 61-84 14-20 126-148/77-91 82-100 Nasal Cannula- Room Air 1-3 Intake and Output 05/30/22 05/30/22 05/30/22 03:59 11:59 19:59 Intake Total 977 1350 607 Output Total 102 975 Balance 875 375 607 Weight 94.892 kg Intake & Output: Intake & Output 05/30/22 05/30/22 05/30/22 03:59 11:59 19:59 Intake Total 977 1350 607 Output Total 102 975 Balance 875 375 607 Weight 94.892 kg Intake: IV 977 1250 607 Zithromax 500 mg In Dextrose 5% 250 in Water 250 ml @ 250 mls/hr IV Q24H [facility] Rx#:[id number] Lactated Ringers 1,000 ml @ 019 188 1240 607 mls/hr IV .Q10H [facility] Rx#: [id number] Oral 100 Output: Void Amount 100 975 # of times incontinent of urine 2 Other: Meal Breakfast Percent of Meal Consumed 100% Feeding Ability Independent Urine Appearance Clear Clear Urine Color Yellow Light Lyubov Head Head exam: Present atraumatic and normal inspection Eye Eye exam: Present normal appearance ENT ENT exam: Present mucous membranes moist, normal exam and normal external ear exam Additional comments: Nasal cannula in place Neck Neck exam: Present normal inspection Respiratory Respiratory exam: Present rhonchi Cardiovascular Cardiovascular exam: Present irregular rhythm GI/Abdominal GI/Abdominal exam: Present normal bowel sounds Back Exam Back exam: Present normal inspection Neurological Exam Neurological exam: Present alert and oriented X3 Skin Skin exam: Present intact and warm OBJ DATA Labs CBC & Chem 7: 05/30/22 05:44 05/30/22 05:44 Labs: Abnormal Lab Results 05/30/22 05/30/22 05/29/22 05:44 05:44 05:17 MCV Neut % (Auto) 94.0 H 92.1 H Lymph % (Auto) 2.7 L 5.2 L Lymph # (Auto) 0.27 L 0.31 L Absolute Neutrophils 9.57 H POC VBG pCO2 at Temp POC VBG pO2 POC VBG HCO3 POC VBG Total CO2 POC Venous O2 Sat POC VBG Base Excess Sodium 129 L Potassium POC Chloride Chloride 86 L Carbon Dioxide POC Total CO2 Anion Gap POC BUN BUN 58 H Creatinine 1.7 H POC Creatinine Glucose 188 H POC Glucose POC WB Ioniz Calcium Direct Bilirubin AST ALT NT-Pro-B Natriuret Pep Procalcitonin 05/28/22 05/28/22 05/28/22 21:37 11:56 11:53 MCV Neut % (Auto) Lymph % (Auto) Lymph # (Auto) Absolute Neutrophils POC VBG pCO2 at Temp 68.1 H* POC VBG pO2 20 L POC VBG HCO3 40.9 H* POC VBG Total CO2 43.0 H* POC Venous O2 Sat 28.0 L POC VBG Base Excess 16.0 H* Sodium Potassium 3.2 L POC Chloride Chloride 89 L 88 L Carbon Dioxide 35 H 41 H* POC Total CO2 Anion Gap 5.0 L POC BUN BUN 60 H 62 H Creatinine 2.2 H 2.8 H POC Creatinine Glucose 159 H 124 H POC Glucose POC WB Ioniz Calcium Direct Bilirubin AST ALT NT-Pro-B Natriuret Pep Procalcitonin 05/28/22 05/28/22 05/28/22 09:52 07:39 07:36 MCV Neut % (Auto) Lymph % (Auto) Lymph # (Auto) Absolute Neutrophils POC VBG pCO2 at Temp 76.1 H* 81.1 H* POC VBG pO2 18 L 23 L POC VBG HCO3 42.6 H* 44.6 H* POC VBG Total CO2 45.0 H* 47.0 H* POC Venous O2 Sat 22.0 L 34.0 L POC VBG Base Excess 17.0 H* 19.0 H* Sodium Potassium POC Chloride 84 L Chloride Carbon Dioxide POC Total CO2 44.0 H* Anion Gap POC BUN 56 H BUN Creatinine POC Creatinine 2.9 H Glucose POC Glucose 152 H POC WB Ioniz Calcium 1.12 L Direct Bilirubin AST ALT NT-Pro-B Natriuret Pep Procalcitonin 05/28/22 05/28/22 05/28/22 07:36 07:36 07:36 MCV 101.0 H Neut % (Auto) Lymph % (Auto) 13.2 L Lymph # (Auto) 1.06 L Absolute Neutrophils POC VBG pCO2 at Temp POC VBG pO2 POC VBG HCO3 POC VBG Total CO2 POC Venous O2 Sat POC VBG Base Excess Sodium Potassium POC Chloride Chloride Carbon Dioxide POC Total CO2 Anion Gap POC BUN BUN Creatinine POC Creatinine Glucose POC Glucose POC WB Ioniz Calcium Direct Bilirubin 0.4 H AST 32 H ALT 45 H NT-Pro-B Natriuret Pep Procalcitonin 0.16 H 05/28/22 07:35 MCV Neut % (Auto) Lymph % (Auto) Lymph # (Auto) Absolute Neutrophils POC VBG pCO2 at Temp POC VBG pO2 POC VBG HCO3 POC VBG Total CO2 POC Venous O2 Sat POC VBG Base Excess Sodium Potassium POC Chloride Chloride Carbon Dioxide POC Total CO2 Anion Gap POC BUN BUN Creatinine POC Creatinine Glucose POC Glucose POC WB Ioniz Calcium Direct Bilirubin AST ALT NT-Pro-B Natriuret Pep 1798.0 H Procalcitonin Meds: Medications Acetaminophen (Acetaminophen 325 Mg Tablet) 650 mg PO Q4-6HP PRN; Protocol PRN Reason: Per Pain Protocol/Fever > 101 Albuterol/Ipratropium (Ipratropium/Albuterol 3 Ml Ampul.Neb) 3 ml NEB Q6HRT [facility] Last Admin: 05/30/22 13:26 Dose: 3 ml Apixaban (Apixaban 5 Mg Tablet) 5 mg PO BID [facility] Last Admin: 05/30/22 09:08 Dose: 5 mg Budesonide (Budesonide 0.5 Mg/2 Ml Ampul.Neb) 0.5 mg NEB Q12 [facility] Last Admin: 05/30/22 08:08 Dose: 0.5 mg Ceftriaxone Sodium (Ceftriaxone 1 Gm Vial) 1 gm IV Q24H [facility]; Protocol Last Admin: 05/30/22 09:09 Dose: 1 gm Lactated Ringer's (Lactated Ringers) 1,000 mls @ 100 mls/hr IV .Q10H [facility] Last Admin: 05/30/22 14:37 Dose: 100 mls/hr Levothyroxine Sodium (Levothyroxine 150 Mcg Tablet) 150 mcg PO QAMAC [facility] Last Admin: 05/30/22 07:31 Dose: 150 mcg Liothyronine Sodium (Liothyronine 5 Mcg Tablet) 5 mcg PO QDAY [facility] Last Admin: 05/30/22 09:09 Dose: 5 mcg Methylprednisolone Sodium Succinate (Methylprednisolone Sod Succ 125 Mg/2 Ml Vial) 80 mg IV Q8 [facility] Last Admin: 05/30/22 14:33 Dose: 80 mg Sodium Chloride (0.9 % Sodium Chloride 10 Ml Syringe) 10 ml IV Q8 [facility] Last Admin: 05/30/22 14:22 Dose: Not Given A/P Assessment and plan (1) Community acquired pneumonia: Status: Acute (2) Acute and chronic respiratory failure with hypoxia: Status: Acute (3) Pulmonary fibrosis: Status: Chronic (4) Hypothyroidism, acquired: Status: Chronic (5) CHF (congestive heart failure): Status: Chronic (6) Afib: Status: Chronic Qualifiers: Atrial fibrillation type: unspecified chronic Qualified Code(s): I48.20 - Chronic atrial fibrillation, unspecified (7) Acute renal failure superimposed on stage 3 chronic kidney disease: Status: Acute Narrative A/P Narrative: Assessment and Plans: 1. Acute on chronic kidney injury, CKD III: Inpatient med surg Kidney functions improving, will saline lock Avoid nephrotoxic agents CMP in the morning to trend kidney functions Physical therapy evaluation and treatment-->Home health PT Occupational Therapy evaluation and treatment 2. Acute on chronic respiratory failure with hypoxia: Pulmonary fibrosis versus heart failure with exacerbations versus pneumonia Supplemental oxygen therapy (baseline=3L/min home oxygen) Saline lock Day 07/17 Solu-Medrol Pulmicort DuoNEB Rocephin day 07/19 Zithromax day 07/17 Rocephin day 07/19 3. Chronic atrial fibrillation: Continue Eliquis as anticoagulation Patient is currently rate controlled 4. Acquired hypothyroidism: Continue thyroid replacement therapy GI ppx: not currently indicated DVT ppx: Eliquis Code status: DNR Prognosis: stable Disposition: inpatient med surg; PT Time Spent With Patient Time: Total time spent is greater than 50% in coordination of care (as documented) at patient's floor/unit and/or counseling patient: Subsequent: Total time with patient: 35 - 49 minutes QUALITY Stroke Symptom Onset Unknown: No VTE Deep Vein Thrombosis/Pulmonary Embolism Present on Admission: No
[2022-05-31] MEDS: IPRATROPIUM/ALBUTEROL 3 ML AMPUL.NEB NEB SCH ×4 (00:05→18:56)
[2022-05-31] MEDS: 0.9 % SODIUM CHLORIDE 10 ML SYRINGE IV SCH ×3 (05:47→20:46)
[2022-05-31] MEDS: methylPREDNISolone SOD SUCC 125 MG/2 ML VIAL IV SCH ×2 (05:47→16:03)
[2022-05-31 06:56] LABS: Basophils # (Auto) 0 K/mcL (0.00-0.30); Basophils % (Auto) 0 % (0.0-2.0); Eosinophils # (Auto) 0 K/mcL (0.00-0.70); Eosinophils % (Auto) 0 % (0.0-7.0); Hematocrit 38.5 % (34.1-44.9); Hemoglobin 12.6 g/dL (11.2-15.7); Lymphocytes # (Auto) 0.24 K/mcL (1.50-4.80); Lymphocytes % (Auto) 2.4 % (15.5-49.0); Mean Cell Volume 98.7 fL (80.0-100.0); Mean Corpuscular HGB Conc 32.7 g/dL (31.0-36.0); Mean Platelet Volume 10.9 fL (8.8-12.5); Monocytes # (Auto) 0.42 K/mcL (0.10-0.90); Monocytes % (Auto) 4.2 % (1.0-12.0); Platelet Count 184 K/mcL (140-440)
[2022-05-31] MEDS: BUDESONIDE 0.5 MG/2 ML AMPUL.NEB NEB SCH ×2 (07:04→19:00)
[2022-05-31 07:12] LABS: ALT/SGPT 45 U/L (<40); AST/SGOT 28 U/L (<32); Albumin 3.6 gm/dL (3.2-5.2); Albumin/Globulin Ratio 1.2 (1.0-2.3); Alkaline Phosphatase 89 U/L (39-117); Bilirubin,Total 0.5 mg/dL (0.1-1.0); Blood Urea Nitrogen 51 mg/dL (8-23); Calcium 9.5 mg/dL (8.6-10.4); Carbon Dioxide 31 mmol/L (22-30); Chloride 87 mmol/L (96-108); Globulin 3.1 gm/dL (2.2-3.7); Glomerular Filtration Rate 26; Glucose 186 mg/dL (70-105)
[2022-05-31] MEDS: LEVOTHYROXINE 150 MCG TABLET PO SCH (08:16)
[2022-05-31] MEDS: APIXABAN 5 MG TABLET PO SCH ×2 (08:16→20:46)
[2022-05-31] MEDS: cefTRIAXone 1 GM VIAL IV SCH (08:16)
[2022-05-31] MEDS: LIOTHYRONINE 5 MCG TABLET PO SCH (08:17)
--- NOTE | 2022-05-31 17:07 | Internal Med Progress Note ---
SUBJECTIVE Subjective Patient information: Note initiated : 05/31/22 at 5:03 pm Service Date, if different from initiated Date: [] Patient: George Ma 81 y/o F admitted on 05/28/22 for Weak, fall. Chief Complaint: [] Principal diagnosis: Acute hypercapnic respiratory failure, TAM, drug-induced hypotension Interval history: 05/30: Patient is on 3 L/min oxygen therapy this morning. Afebrile overnight. BUN/Cr 58/1.7 today. Patient is commenting of the same degree of shortness of breath. She is also commenting of mild cough and wheezing. She denies any chest pain. She denies any fever chills or diaphoresis. Continue to titrate supplemental oxygen therapy as needed, by mind that she used up to 3 L/min of home oxygen. Saline lock the patient. Will finish off Solu- Medrol today. Continue DuoNeb, Pulmicort, for pulmonary fibrosis. Continue Rocephin and azithromycin for differential diagnosis of pneumonia. Continue Eliquis for atrial fibrillation. Continue thyroid replacement therapy for hypothyroidism. Continue physical therapy and Occupational Therapy evaluation and treatment for placement planning. 05/31: There was no major overnight events. Patient's which clinical stability. Patient is on 2 L/min nasal cannula oxygen which is her baseline. She finished Solu-Medrol and azithromycin for 3-day respectively. Physical therapy not available to evaluate the patient today. Family refused to take the patient home today. Continue day 4 out of 5 Rocephin, and continue DuoNeb/Pulmicort for pulmonary fibrosis plus or minus pneumonia. Pending discharged home with home health therapy tomorrow. Constitutional Vitals: Vital Signs Temp Pulse Resp BP Pulse Ox O2 Del Method O2 Flow Rate 36.9 C 80 17 154/94 98 2 05/31/22 12:00 05/31/22 14:00 05/31/22 14:00 05/31/22 12:00 05/31/22 14:00 05/31/22 14:00 05/31/22 14:00 Period Temp Pulse Resp BP Sys/Figueredo Pulse Ox O2 Del Method O2 Flow Rate Last 24 Hr 36.3 C-36.9 C 77-102 16-20 143-160/61-94 96-100 Nasal Cannula- Nasal Cannula 1-3 Intake and Output 01/05/31/22 05/31/22 03:59 11:59 19:59 Intake Total 240 240 Output Total 151 125 Balance 89 115 Weight 96.388 kg Intake & Output: Intake & Output 05/31/22 05/31/22 05/31/22 03:59 11:59 19:59 Intake Total 240 240 Output Total 151 125 Balance 89 115 Weight 96.388 kg Intake: Oral 240 240 Output: Void Amount 150 125 # of times incontinent of urine 1 Other: Urine Appearance Clear Clear Urine Color Yellow Dark Yellow Head Head exam: Present atraumatic and normal inspection Eye Eye exam: Present normal appearance ENT ENT exam: Present mucous membranes moist, normal exam and normal external ear exam Additional comments: Nasal cannula in place Neck Neck exam: Present normal inspection Respiratory Respiratory exam: Present rhonchi Cardiovascular Cardiovascular exam: Present irregular rhythm GI/Abdominal GI/Abdominal exam: Present normal bowel sounds Back Exam Back exam: Present normal inspection Neurological Exam Neurological exam: Present alert and oriented X3 Skin Skin exam: Present intact and warm OBJ DATA Labs CBC & Chem 7: 05/31/22 05:56 05/31/22 05:56 Labs: Abnormal Lab Results 05/31/22 05/31/22 05/30/22 05:56 05:56 05:44 Neut % (Auto) 93.0 H Lymph % (Auto) 2.4 L Lymph # (Auto) 0.24 L Absolute Neutrophils 9.32 H Sodium 129 L Chloride 87 L 86 L Carbon Dioxide 31 H BUN 51 H 58 H Creatinine 1.8 H 1.7 H Glucose 186 H 188 H ALT 45 H 05/30/22 05/29/22 05/28/22 05:44 05:17 21:37 Neut % (Auto) 94.0 H 92.1 H Lymph % (Auto) 2.7 L 5.2 L Lymph # (Auto) 0.27 L 0.31 L Absolute Neutrophils 9.57 H Sodium Chloride 89 L Carbon Dioxide 35 H BUN 60 H Creatinine 2.2 H Glucose 159 H ALT Meds: Medications Acetaminophen (Acetaminophen 325 Mg Tablet) 650 mg PO Q4-6HP PRN; Protocol PRN Reason: Per Pain Protocol/Fever > 101 Albuterol/Ipratropium (Ipratropium/Albuterol 3 Ml Ampul.Neb) 3 ml NEB Q6HRT [facility] Last Admin: 05/31/22 13:59 Dose: 3 ml Apixaban (Apixaban 5 Mg Tablet) 5 mg PO BID [facility] Last Admin: 05/31/22 08:16 Dose: 5 mg Budesonide (Budesonide 0.5 Mg/2 Ml Ampul.Neb) 0.5 mg NEB Q12 [facility] Last Admin: 05/31/22 07:04 Dose: 0.5 mg Ceftriaxone Sodium (Ceftriaxone 1 Gm Vial) 1 gm IV Q24H [facility]; Protocol Last Admin: 05/31/22 08:16 Dose: 1 gm Levothyroxine Sodium (Levothyroxine 150 Mcg Tablet) 150 mcg PO QAMAC [facility] Last Admin: 05/31/22 08:16 Dose: 150 mcg Liothyronine Sodium (Liothyronine 5 Mcg Tablet) 5 mcg PO QDAY [facility] Last Admin: 05/31/22 08:17 Dose: 5 mcg Sodium Chloride (0.9 % Sodium Chloride 10 Ml Syringe) 10 ml IV Q8 [facility] Last Admin: 05/31/22 16:03 Dose: 10 ml A/P Assessment and plan (1) Community acquired pneumonia: Status: Acute (2) Acute and chronic respiratory failure with hypoxia: Status: Acute (3) Pulmonary fibrosis: Status: Chronic (4) Hypothyroidism, acquired: Status: Chronic (5) CHF (congestive heart failure): Status: Chronic (6) Afib: Status: Chronic Qualifiers: Atrial fibrillation type: unspecified chronic Qualified Code(s): I48.20 - Chronic atrial fibrillation, unspecified (7) Acute renal failure superimposed on stage 3 chronic kidney disease: Status: Acute Narrative A/P Narrative: Assessment and Plans: 1. Acute on chronic kidney injury, CKD III: Inpatient med surg Kidney functions improving, will saline lock Avoid nephrotoxic agents Physical therapy evaluation and treatment-->Home health PT Occupational Therapy evaluation and treatment 2. Acute on chronic respiratory failure with hypoxia: Pulmonary fibrosis versus heart failure with exacerbations versus pneumonia Supplemental oxygen therapy (baseline=3L/min home oxygen) Saline lock Finished 3 days of Solu-Medrol Finished 3 days of Zithromax Continue Rocephin day 4/5 Pulmicort DuoNEB 3. Chronic atrial fibrillation: Continue Eliquis as anticoagulation Patient is currently rate controlled 4. Acquired hypothyroidism: Continue thyroid replacement therapy GI ppx: not currently indicated DVT ppx: Eliquis Code status: DNR Prognosis: stable Disposition: inpatient med surg; pending PT Time Spent With Patient Time: Total time spent is greater than 50% in coordination of care (as documented) at patient's floor/unit and/or counseling patient: Subsequent: Total time with patient: 35 - 49 minutes QUALITY Stroke Symptom Onset Unknown: No VTE Deep Vein Thrombosis/Pulmonary Embolism Present on Admission: No
[2022-06-01] MEDS: IPRATROPIUM/ALBUTEROL 3 ML AMPUL.NEB NEB SCH ×3 (02:00→13:35)
[2022-06-01] MEDS: LEVOTHYROXINE 150 MCG TABLET PO SCH (08:09)
[2022-06-01] MEDS: cefTRIAXone 1 GM VIAL IV SCH (08:09)
[2022-06-01] MEDS: LIOTHYRONINE 5 MCG TABLET PO SCH (08:09)
[2022-06-01] MEDS: APIXABAN 5 MG TABLET PO SCH (08:09)
[2022-06-01] MEDS: 0.9 % SODIUM CHLORIDE 10 ML SYRINGE IV SCH (08:09)
[2022-06-01] MEDS: BUDESONIDE 0.5 MG/2 ML AMPUL.NEB NEB SCH (09:26)
--- NOTE | 2022-06-01 13:42 | Discharge Summary ---
Discharge Provider Provider IMPORTANT FOLLOW-UP INFORMATION FOR PCP: Patient information: Note initiated : 06/01/22 at 1:38 pm Service Date, if different from initiated Date: [] Patient: George Ma 81 y/o F admitted on 05/28/22 for Weak, fall. Chief Complaint: [] Date of admission: 05/28/22 13:10 Discharge date: 06/01/22 Primary care physician: Lissette Rivera Attending physician on admission: Christina Nielson Consults: 05/28/22 Consult to Physician [CONS] Stat Comment: Consulting Provider: Christina Nielson Reason For Exam: Physician to Consult Attending physician on discharge: [facility]ui COURSE Hospital Course Hospital course: May 28, 2022 for acute on chronic respiratory failure with hypoxia secondary to pulmonary fibrosis and pneumonia. She also suffered from acute on chronic kidney injury. She was being treated with IV fluid, supplemental oxygen therapy, Solu-Medrol, azithromycin, Rocephin, Pulmicort, and DuoNeb nebulizer. Symptoms of respiratory failure improved and her oxygen is requirement down to 1 L/min on June 01, 2022. She finished her antibiotics and systemic steroid therapy. Her kidney functions also improved and back to the baseline and she has been saline locked. Physical therapist evaluated the patient's and recommended home health with physical therapy. Patient has reached clinical stability on June 01, 2022 and decision made to discharge patient home with home health physical therapy. Prescriptions given to the patient's. All questions answered prior to patient being physically discharged. PCP follow-up appointment made for the patient's. Discharge diagnosis: Pulmonary fibrosis, pneumonia, acute on chronic kidney injury Time Spent with Patient Time attestation: Total time spent providing and/or coordinating discharge services: Time spent: Less than 30 minutes EXAM Constitutional Vitals: Temp Pulse Resp BP Pulse Ox O2 Del Method O2 Flow Rate 36.6 C 92 H 16 153/83 99 1 06/01/22 07:55 06/01/22 13:35 06/01/22 13:35 06/01/22 07:55 06/01/22 13:35 06/01/22 13:35 06/01/22 13:35 General appearance: cooperative and no acute distress Head Head exam: Present atraumatic and normocephalic Eye Eye exam: Present EOMI and PERRL ENT ENT exam: Present mucous membranes moist, normal exam and normal external ear exam Additional comments: Nasal cannula in place Neck Neck exam: Present normal inspection; Absent lymphadenopathy, tenderness or thyromegaly Respiratory Respiratory exam: Present rhonchi; Absent accessory muscle use, respiratory distress or wheezes Cardiovascular Cardiovascular exam: Present irregular rhythm; Absent JVD GI/Abdominal GI/Abdominal exam: Present normal bowel sounds and soft; Absent organomegaly or tenderness Extremities Exam Extremities exam: Present full ROM, normal capillary refill and normal inspection; Absent tenderness Neurological Exam Neurological exam: Present alert, CN II-XII intact and oriented X3; Absent motor sensory deficit Psychiatric Psychiatric exam: Present normal affect and normal mood; Absent anxious or depressed Skin Skin exam: Present dry and intact Discharge Plan Patient/Caregiver Discharge Instructions Activity: increase activity as tolerated Diet: Regular Diet Prescriptions: Continued liothyronine 5 mcg tablet 5 mcg PO QDAY Qty: 90 1RF albuterol sulfate [Ventolin HFA] 90 mcg/actuation HFA aerosol inhaler 2 puff INHALATION QID Qty: 18 6RF Trelegy Ellipta 200-62.5-25 mcg blister with device 1 inh inhalation QDAY Qty: 60 4RF Eliquis 5 mg tablet 5 mg PO BID Qty: 60 1RF losartan 100 mg tablet 100 mg PO QDAY Qty: 90 0RF (DME) Handicap Placard See Rx Instructions .Route .MEDSUPPLY Qty: 1 0RF Rx Instructions: ++Patient unable to walk more than 6 feet without significant difficulties breathing due to medical conditions. metoprolol succinate 25 mg tablet extended release 24 hr 50 mg PO .Q HS Qty: 90 1RF furosemide 20 mg tablet 40 mg PO QDAY levothyroxine 150 mcg tablet 150 mcg PO QAMAC sertraline 50 mg tablet 25 mg PO QDAY potassium chloride 10 mEq tablet extended release 10 meq PO QAMCC diltiazem HCl 120 mg capsule,extended release 24hr 120 mg PO QDAY montelukast 10 mg tablet 10 mg PO DAILY Follow Up Plan Follow up with: Lissette Rivera ARNP [Primary Care Provider] - Patient Disposition: Home Health Service Prognosis: Fair Rehab Potential: Good I certify that the patient requires SNF services: No Overall status at discharge: patient is back to baseline Discharge Orders: Discharge Order (Routine); Ordered 06/01/22 Ordered By: Chi Alcides Pui QUALITY VTE Deep Vein Thrombosis/Pulmonary Embolism Present on Admission: No
== END 2022-06-01 16:10 | disposition home health service (06) | DRG 196 ==
LOC: ED 07:07 → ICU 13:10 → MEDSUR 05-29 14:42
PROVIDERS: ADMIT Student in an Organized Health Care Education/Training Program; ATTEND Internal Medicine

== ENCOUNTER 2023-03-11 19:12 | Inpatient (IN) ==
[2023-03-11 19:41] LABS: POC Blood Urea Nitrogen > 140 (6-20); POC Calcium, Ionized 1.09 (1.16-1.32); POC Chloride 84 (96-108); POC Creatinine 3.3 (0.6-1.2); POC Glucose, Random 161 (70-105); POC Potassium 3.2 (3.3-5.1); POC Sodium 130 (133-145)
[2023-03-11] MEDS ORDERED: 0.9 % SODIUM CHLORIDE 1,000 ML IV ONE ×2 (19:53→23:02)
[2023-03-11] MEDS ORDERED: POTASSIUM CHLORIDE 20 MEQ TABLET PO ONE (19:53)
[2023-03-11 20:05] LABS: Basophils # (Auto) 0.02 K/mcL (0.00-0.30); Basophils % (Auto) 0.2 % (0.0-2.0); Eosinophils # (Auto) 0.03 K/mcL (0.00-0.70); Eosinophils % (Auto) 0.3 % (0.0-7.0); Hematocrit 44.1 % (34.1-44.9); Hemoglobin 15.3 g/dL (11.2-15.7); Lymphocytes # (Auto) 1.24 K/mcL (1.50-4.80); Lymphocytes % (Auto) 12.1 % (15.5-49.0); Mean Cell Volume 96.3 fL (80.0-100.0); Mean Corpuscular HGB Conc 34.7 g/dL (31.0-36.0); Mean Platelet Volume 12.1 fL (8.8-12.5); Monocytes # (Auto) 0.98 K/mcL (0.10-0.90); Monocytes % (Auto) 9.5 % (1.0-12.0); Neutrophils % (Auto) 77.6 % (38.0-78.0); Platelet Count 162 K/mcL (140-440); RBC 4.58 M/mcL (3.59-5.38); Red Cell Distribution Width 12.4 % (11.5-14.5); WBC 10.3 K/mcL (4.5-11.0)
[2023-03-11 21:19] LABS: POC Blood Urea Nitrogen > 140 (6-20); POC Calcium, Ionized 1.17 (1.16-1.32); POC Chloride 85 (96-108); POC Creatinine 3.2 (0.6-1.2); POC Glucose, Random 133 (70-105); POC Sodium 133 (133-145)
[2023-03-11 22:36] LABS: Creatine Kinase 66 U/L (24-170)
[2023-03-11] MEDS ORDERED: traZODone HCL 50 MG TABLET PO PRN (23:28)
[2023-03-11] MEDS ORDERED: oxyCODONE IR 5 MG TABLET PO PRN (23:28)
[2023-03-11] MEDS ORDERED: morphine 4 MG/ML VIAL IV PRN (23:28)
[2023-03-11] MEDS ORDERED: POTASSIUM CHLORIDE 20 MEQ in DEXTROSE 5% IN WATER 250 ML IV ONE (23:28)
[2023-03-11] MEDS ORDERED: ONDANSETRON 4 MG/2 ML VIAL IV PRN (23:28)
[2023-03-11] MEDS ORDERED: ACETAMINOPHEN 325 MG TABLET PO PRN (23:28)
[2023-03-11] MEDS ORDERED: IPRATROPIUM/ALBUTEROL 3 ML AMPUL.NEB NEB PRN (23:28)
[2023-03-12] MEDS: 0.9 % SODIUM CHLORIDE 1,000 ML IV SCH ×3 (00:50→14:03)
[2023-03-12] MEDS ORDERED: POTASSIUM CHLORIDE 20 MEQ/10 ML VIAL IV ONE (00:55)
[2023-03-12] MEDS: 0.9 % SODIUM CHLORIDE 10 ML SYRINGE IV SCH ×3 (04:08→20:58)
[2023-03-12 06:46] LABS: Basophils # (Auto) 0.03 K/mcL (0.00-0.30); Basophils % (Auto) 0.3 % (0.0-2.0); Eosinophils # (Auto) 0.04 K/mcL (0.00-0.70); Eosinophils % (Auto) 0.4 % (0.0-7.0); Hematocrit 39.6 % (34.1-44.9); Hemoglobin 13.6 g/dL (11.2-15.7); Lymphocytes # (Auto) 1.41 K/mcL (1.50-4.80); Mean Cell Volume 97.5 fL (80.0-100.0); Mean Corpuscular HGB Conc 34.3 g/dL (31.0-36.0); Mean Platelet Volume 11.8 fL (8.8-12.5); Monocytes # (Auto) 1.06 K/mcL (0.10-0.90); Monocytes % (Auto) 9.8 % (1.0-12.0); Neutrophils % (Auto) 76.1 % (38.0-78.0); Platelet Count 147 K/mcL (140-440); RBC 4.06 M/mcL (3.59-5.38); Red Cell Distribution Width 12.3 % (11.5-14.5); WBC 10.8 K/mcL (4.5-11.0)
[2023-03-12 06:57] LABS: Creatine Kinase 69 U/L (24-170)
[2023-03-12 07:56] LABS: ALT/SGPT 20 U/L (<40); AST/SGOT 24 U/L (<32); Albumin 4.3 gm/dL (3.2-5.2); Albumin/Globulin Ratio 1.1 (1.0-2.3); Alkaline Phosphatase 60 U/L (39-117); Bilirubin,Total 0.6 mg/dL (0.1-1.0); Blood Urea Nitrogen 145 mg/dL (8-23); Carbon Dioxide 32 mmol/L (22-30); Chloride 87 mmol/L (96-108); Glomerular Filtration Rate 17; Glucose 121 mg/dL (70-105)
[2023-03-12] MEDS: DOCUSATE SODIUM 100 MG CAPSULE PO SCH ×2 (10:02→20:58)
[2023-03-12] MEDS ORDERED: ALBUTEROL SULFATE 60 PUFF INHALER INH PRN (13:13)
[2023-03-12] MEDS: METOPROLOL SUCCINATE 25 MG TAB.XL.24H PO SCH (20:57)
[2023-03-12] MEDS: SENNOSIDES 1 TABLET PO SCH (20:57)
[2023-03-12] MEDS: APIXABAN 5 MG TABLET PO SCH (20:57)
[2023-03-13] MEDS: 0.9 % SODIUM CHLORIDE 1,000 ML IV SCH ×2 (01:48→09:23)
[2023-03-13] MEDS: 0.9 % SODIUM CHLORIDE 10 ML SYRINGE IV SCH ×3 (05:15→21:16)
[2023-03-13 07:20] LABS: Creatine Kinase 56 U/L (24-170)
[2023-03-13 07:59] LABS: Basophils # (Auto) 0.03 K/mcL (0.00-0.30); Basophils % (Auto) 0.4 % (0.0-2.0); Eosinophils # (Auto) 0.16 K/mcL (0.00-0.70); Eosinophils % (Auto) 2.3 % (0.0-7.0); Hematocrit 33.9 % (34.1-44.9); Hemoglobin 11.2 g/dL (11.2-15.7); Lymphocytes # (Auto) 1.34 K/mcL (1.50-4.80); Lymphocytes % (Auto) 19.4 % (15.5-49.0); Mean Cell Volume 99.4 fL (80.0-100.0); Mean Platelet Volume 11.4 fL (8.8-12.5); Monocytes # (Auto) 0.81 K/mcL (0.10-0.90); Monocytes % (Auto) 11.8 % (1.0-12.0); Neutrophils % (Auto) 65.8 % (38.0-78.0); Platelet Count 110 K/mcL (140-440); RBC 3.41 M/mcL (3.59-5.38); Red Cell Distribution Width 12.3 % (11.5-14.5); WBC 6.9 K/mcL (4.5-11.0)
[2023-03-13] MEDS ORDERED: POTASSIUM CHLORIDE 10 MEQ TABLET PO SCH (08:00)
[2023-03-13] MEDS: LEVOTHYROXINE 100 MCG TABLET PO SCH (08:23)
[2023-03-13] MEDS: DILTIAZEM 120 MG CAP.XL.24H PO SCH (08:24)
[2023-03-13] MEDS: APIXABAN 5 MG TABLET PO SCH ×2 (08:24→21:15)
[2023-03-13] MEDS: SERTRALINE 100 MG TABLET PO SCH (08:25)
[2023-03-13] MEDS: DOCUSATE SODIUM 100 MG CAPSULE PO SCH ×2 (08:25→21:16)
[2023-03-13] MEDS: LIOTHYRONINE 5 MCG TABLET PO SCH (08:27)
[2023-03-13 08:28] LABS: ALT/SGPT 15 U/L (<40); AST/SGOT 18 U/L (<32); Albumin 3.4 gm/dL (3.2-5.2); Alkaline Phosphatase 48 U/L (39-117); Bilirubin,Total 0.5 mg/dL (0.1-1.0); Blood Urea Nitrogen 96 mg/dL (8-23); Calcium 9.2 mg/dL (8.6-10.4); Carbon Dioxide 29 mmol/L (22-30); Chloride 93 mmol/L (96-108); Globulin 3.4 gm/dL (2.2-3.7); Glomerular Filtration Rate 30; Glucose 108 mg/dL (70-105)
[2023-03-13] MEDS: MONTELUKAST 10 MG TABLET PO SCH (08:28)
[2023-03-13] MEDS ORDERED: POTASSIUM CHLORIDE 40 MEQ in DEXTROSE 5% IN WATER 500 ML IV ONE (08:48)
[2023-03-13] MEDS: Fluticasone-Umeclidin-Vilanter [Trelegy Ellipta] Inhaler INH SCH (09:23)
[2023-03-13] MEDS: POTASSIUM CHLORIDE 20 MEQ TABLET PO SCH (17:10)
[2023-03-13] MEDS: METOPROLOL SUCCINATE 25 MG TAB.XL.24H PO SCH (21:15)
[2023-03-13] MEDS: SENNOSIDES 1 TABLET PO SCH (21:16)
[2023-03-14] MEDS: 0.9 % SODIUM CHLORIDE 10 ML SYRINGE IV SCH ×4 (05:48→20:29)
[2023-03-14] MEDS: POTASSIUM CHLORIDE 20 MEQ TABLET PO SCH ×2 (07:36→17:06)
[2023-03-14] MEDS: LEVOTHYROXINE 100 MCG TABLET PO SCH (07:36)
[2023-03-14 07:40] LABS: Basophils # (Auto) 0.03 K/mcL (0.00-0.30); Basophils % (Auto) 0.4 % (0.0-2.0); Eosinophils # (Auto) 0.29 K/mcL (0.00-0.70); Eosinophils % (Auto) 3.8 % (0.0-7.0); Hematocrit 35.7 % (34.1-44.9); Hemoglobin 11.9 g/dL (11.2-15.7); Lymphocytes # (Auto) 1.67 K/mcL (1.50-4.80); Lymphocytes % (Auto) 22.1 % (15.5-49.0); Mean Cell Volume 101.4 fL (80.0-100.0); Mean Corpuscular HGB Conc 33.3 g/dL (31.0-36.0); Mean Platelet Volume 11.4 fL (8.8-12.5); Monocytes # (Auto) 0.95 K/mcL (0.10-0.90); Monocytes % (Auto) 12.6 % (1.0-12.0); Neutrophils % (Auto) 60.7 % (38.0-78.0); Platelet Count 117 K/mcL (140-440); RBC 3.52 M/mcL (3.59-5.38); Red Cell Distribution Width 12.3 % (11.5-14.5); WBC 7.6 K/mcL (4.5-11.0)
[2023-03-14 07:58] LABS: Creatine Kinase 99 U/L (24-170)
[2023-03-14 08:33] LABS: ALT/SGPT 19 U/L (<40); AST/SGOT 25 U/L (<32); Albumin 3.7 gm/dL (3.2-5.2); Albumin/Globulin Ratio 1.1 (1.0-2.3); Alkaline Phosphatase 52 U/L (39-117); Bilirubin,Total 0.5 mg/dL (0.1-1.0); Blood Urea Nitrogen 64 mg/dL (8-23); Calcium 9.5 mg/dL (8.6-10.4); Carbon Dioxide 30 mmol/L (22-30); Chloride 95 mmol/L (96-108); Globulin 3.4 gm/dL (2.2-3.7); Glomerular Filtration Rate 35; Glucose 109 mg/dL (70-105)
[2023-03-14] MEDS: SERTRALINE 100 MG TABLET PO SCH (09:08)
[2023-03-14] MEDS: Fluticasone-Umeclidin-Vilanter [Trelegy Ellipta] Inhaler INH SCH (09:08)
[2023-03-14] MEDS: DILTIAZEM 120 MG CAP.XL.24H PO SCH (09:08)
[2023-03-14] MEDS: MONTELUKAST 10 MG TABLET PO SCH (09:08)
[2023-03-14] MEDS: DOCUSATE SODIUM 100 MG CAPSULE PO SCH ×2 (09:08→20:23)
[2023-03-14] MEDS: LIOTHYRONINE 5 MCG TABLET PO SCH (09:08)
[2023-03-14] MEDS: APIXABAN 5 MG TABLET PO SCH ×2 (09:08→20:29)
[2023-03-14] MEDS: SENNOSIDES 1 TABLET PO SCH (20:23)
[2023-03-14] MEDS: METOPROLOL SUCCINATE 25 MG TAB.XL.24H PO SCH (20:29)
[2023-03-15] MEDS: 0.9 % SODIUM CHLORIDE 10 ML SYRINGE IV SCH (04:24)
[2023-03-15 07:07] LABS: Basophils # (Auto) 0.04 K/mcL (0.00-0.30); Basophils % (Auto) 0.5 % (0.0-2.0); Eosinophils # (Auto) 0.32 K/mcL (0.00-0.70); Eosinophils % (Auto) 3.7 % (0.0-7.0); Hematocrit 36.4 % (34.1-44.9); Hemoglobin 12.2 g/dL (11.2-15.7); Lymphocytes # (Auto) 1.83 K/mcL (1.50-4.80); Lymphocytes % (Auto) 21.4 % (15.5-49.0); Mean Cell Volume 100.8 fL (80.0-100.0); Mean Corpuscular HGB Conc 33.5 g/dL (31.0-36.0); Mean Platelet Volume 11.3 fL (8.8-12.5); Monocytes # (Auto) 0.99 K/mcL (0.10-0.90); Monocytes % (Auto) 11.6 % (1.0-12.0); Neutrophils % (Auto) 62.7 % (38.0-78.0); Platelet Count 126 K/mcL (140-440); RBC 3.61 M/mcL (3.59-5.38); Red Cell Distribution Width 12.2 % (11.5-14.5); WBC 8.5 K/mcL (4.5-11.0)
[2023-03-15] MEDS: LEVOTHYROXINE 100 MCG TABLET PO SCH (07:23)
[2023-03-15 07:36] LABS: Creatine Kinase 71 U/L (24-170)
[2023-03-15 07:46] LABS: ALT/SGPT 21 U/L (<40); AST/SGOT 24 U/L (<32); Albumin 3.6 gm/dL (3.2-5.2); Alkaline Phosphatase 51 U/L (39-117); Bilirubin,Total 0.5 mg/dL (0.1-1.0); Blood Urea Nitrogen 47 mg/dL (8-23); Calcium 9.4 mg/dL (8.6-10.4); Carbon Dioxide 29 mmol/L (22-30); Chloride 95 mmol/L (96-108); Globulin 3.5 gm/dL (2.2-3.7); Glomerular Filtration Rate 42; Glucose 108 mg/dL (70-105)
[2023-03-15] MEDS: POTASSIUM CHLORIDE 20 MEQ TABLET PO SCH (08:37)
[2023-03-15] MEDS: DILTIAZEM 120 MG CAP.XL.24H PO SCH (08:38)
[2023-03-15] MEDS: DOCUSATE SODIUM 100 MG CAPSULE PO SCH (08:38)
[2023-03-15] MEDS: SERTRALINE 100 MG TABLET PO SCH (08:38)
[2023-03-15] MEDS: MONTELUKAST 10 MG TABLET PO SCH (08:38)
[2023-03-15] MEDS: APIXABAN 5 MG TABLET PO SCH (08:38)
[2023-03-15] MEDS: LIOTHYRONINE 5 MCG TABLET PO SCH (08:39)
[2023-03-15] MEDS: Fluticasone-Umeclidin-Vilanter [Trelegy Ellipta] Inhaler INH SCH (08:39)
[2023-03-15] MEDS ORDERED: LOSARTAN 50 MG TABLET PO SCH (09:00)
[2023-03-15] MEDS ORDERED: FUROSEMIDE 20 MG TABLET PO SCH (09:00)
== END 2023-03-15 13:00 | DRG 683 ==
LOC: ED 19:12 → MEDSUR 23:24
PROVIDERS: ADMIT Internal Medicine; ATTEND Internal Medicine

== ENCOUNTER 2023-04-16 06:23 | Inpatient (IN) ==
[2023-04-16 08:12] LABS: Basophils # (Auto) 0.03 K/mcL (0.00-0.30); Basophils % (Auto) 0.4 % (0.0-2.0); Eosinophils # (Auto) 0.13 K/mcL (0.00-0.70); Eosinophils % (Auto) 1.7 % (0.0-7.0); Hematocrit 34.3 % (34.1-44.9); Hemoglobin 11.4 g/dL (11.2-15.7); Lymphocytes # (Auto) 1.87 K/mcL (1.50-4.80); Lymphocytes % (Auto) 24.2 % (15.5-49.0); Mean Cell Volume 98.3 fL (80.0-100.0); Mean Corpuscular HGB Conc 33.2 g/dL (31.0-36.0); Mean Platelet Volume 10.5 fL (8.8-12.5); Monocytes # (Auto) 0.99 K/mcL (0.10-0.90); Monocytes % (Auto) 12.8 % (1.0-12.0); Neutrophils % (Auto) 60.1 % (38.0-78.0); Platelet Count 179 K/mcL (140-440); RBC 3.49 M/mcL (3.59-5.38); Red Cell Distribution Width 13.2 % (11.5-14.5); WBC 7.7 K/mcL (4.5-11.0)
[2023-04-16 08:21] LABS: ALT/SGPT 24 U/L (<40); AST/SGOT 24 U/L (<32); Albumin 3.7 gm/dL (3.2-5.2); Albumin/Globulin Ratio 1.1 (1.0-2.3); Alkaline Phosphatase 74 U/L (39-117); Bilirubin,Total 0.4 mg/dL (0.1-1.0); Blood Urea Nitrogen 92 mg/dL (8-23); Calcium 9.7 mg/dL (8.6-10.4); Carbon Dioxide 30 mmol/L (22-30); Chloride 89 mmol/L (96-108); Globulin 3.4 gm/dL (2.2-3.7); Glomerular Filtration Rate 13; Glucose 124 mg/dL (70-105)
[2023-04-16] MEDS ORDERED: 0.9 % SODIUM CHLORIDE 1,000 ML IV ONE (08:38)
[2023-04-16] MEDS ORDERED: ALBUTEROL SULFATE 60 PUFF INHALER INH PRN (10:14)
[2023-04-16] MEDS ORDERED: KETOROLAC 30 MG/ML VIAL IV PRN (11:16)
[2023-04-16] MEDS ORDERED: ONDANSETRON 4 MG/2 ML VIAL IV PRN (11:16)
[2023-04-16] MEDS ORDERED: ACETAMINOPHEN 325 MG TABLET PO PRN (11:16)
[2023-04-16] MEDS ORDERED: traZODone HCL 50 MG TABLET PO PRN (11:16)
[2023-04-16] MEDS ORDERED: hydrALAZINE 20 MG/ML VIAL IV PRN (11:16)
[2023-04-16] MEDS ORDERED: IPRATROPIUM/ALBUTEROL 3 ML AMPUL.NEB NEB PRN (11:16)
[2023-04-16] MEDS: 0.9 % SODIUM CHLORIDE 1,000 ML IV SCH (11:33)
[2023-04-16] MEDS: POTASSIUM CHLORIDE 10 MEQ TABLET PO SCH (16:56)
[2023-04-16] MEDS: 0.9 % SODIUM CHLORIDE 10 ML SYRINGE IV SCH ×2 (16:57→20:27)
[2023-04-16] MEDS: DOCUSATE SODIUM 100 MG CAPSULE PO SCH (20:23)
[2023-04-16] MEDS: SENNOSIDES 1 TABLET PO SCH (20:24)
[2023-04-16] MEDS: METOPROLOL SUCCINATE 25 MG TAB.XL.24H PO SCH (20:26)
[2023-04-16] MEDS: FLUTICASONE/SALMETEROL 250/50 INHALER #14 INH SCH (20:32)
[2023-04-17] MEDS: 0.9 % SODIUM CHLORIDE 1,000 ML IV SCH ×2 (00:55→13:54)
[2023-04-17] MEDS: 0.9 % SODIUM CHLORIDE 10 ML SYRINGE IV SCH ×3 (05:49→20:21)
[2023-04-17 06:23] LABS: Basophils # (Auto) 0.03 K/mcL (0.00-0.30); Basophils % (Auto) 0.4 % (0.0-2.0); Eosinophils % (Auto) 2.6 % (0.0-7.0); Hematocrit 32.7 % (34.1-44.9); Hemoglobin 10.5 g/dL (11.2-15.7); Lymphocytes # (Auto) 1.41 K/mcL (1.50-4.80); Lymphocytes % (Auto) 18.1 % (15.5-49.0); Mean Cell Volume 100.3 fL (80.0-100.0); Mean Corpuscular HGB Conc 32.1 g/dL (31.0-36.0); Mean Platelet Volume 10.7 fL (8.8-12.5); Monocytes # (Auto) 0.83 K/mcL (0.10-0.90); Monocytes % (Auto) 10.7 % (1.0-12.0); Neutrophils % (Auto) 67.8 % (38.0-78.0); Platelet Count 173 K/mcL (140-440); RBC 3.26 M/mcL (3.59-5.38); Red Cell Distribution Width 13.2 % (11.5-14.5); WBC 7.8 K/mcL (4.5-11.0)
[2023-04-17 06:46] LABS: ALT/SGPT 22 U/L (<40); AST/SGOT 22 U/L (<32); Albumin 3.2 gm/dL (3.2-5.2); Albumin/Globulin Ratio 0.9 (1.0-2.3); Alkaline Phosphatase 71 U/L (39-117); Bilirubin,Total 0.3 mg/dL (0.1-1.0); Blood Urea Nitrogen 74 mg/dL (8-23); Calcium 9.4 mg/dL (8.6-10.4); Carbon Dioxide 29 mmol/L (22-30); Chloride 100 mmol/L (96-108); Globulin 3.5 gm/dL (2.2-3.7); Glomerular Filtration Rate 28; Glucose 109 mg/dL (70-105)
[2023-04-17] MEDS: MONTELUKAST 10 MG TABLET PO SCH (08:03)
[2023-04-17] MEDS: DILTIAZEM 120 MG CAP.XL.24H PO SCH (08:03)
[2023-04-17] MEDS: POTASSIUM CHLORIDE 10 MEQ TABLET PO SCH ×2 (08:03→16:47)
[2023-04-17] MEDS: SERTRALINE 100 MG TABLET PO SCH (08:03)
[2023-04-17] MEDS: LIOTHYRONINE 5 MCG TABLET PO SCH (08:03)
[2023-04-17] MEDS: LEVOTHYROXINE 50 MCG TABLET PO SCH (08:04)
[2023-04-17] MEDS ORDERED: NON FORMULARY MEDICATION 1 DOSE MISCELL (Fluticasone-Umeclidin-Vilanter [Trelegy Ellipta] INHALATION SCH (09:00)
[2023-04-17] MEDS ORDERED: LEVOTHYROXINE 50 MCG TABLET PO SCH (09:00)
[2023-04-17] MEDS: DOCUSATE SODIUM 100 MG CAPSULE PO SCH ×2 (09:49→19:58)
[2023-04-17] MEDS: FLUTICASONE/SALMETEROL 250/50 INHALER #14 INH SCH ×2 (09:49→20:07)
[2023-04-17] MEDS: SENNOSIDES 1 TABLET PO SCH (19:58)
[2023-04-17] MEDS: METOPROLOL SUCCINATE 25 MG TAB.XL.24H PO SCH (20:21)
[2023-04-18 06:48] LABS: Blood Urea Nitrogen 47 mg/dL (8-23); Calcium 9.6 mg/dL (8.6-10.4); Carbon Dioxide 29 mmol/L (22-30); Chloride 99 mmol/L (96-108); Glomerular Filtration Rate 47; Glucose 110 mg/dL (70-105)
[2023-04-18] MEDS: POTASSIUM CHLORIDE 10 MEQ TABLET PO SCH ×2 (07:28→16:45)
[2023-04-18] MEDS: LEVOTHYROXINE 50 MCG TABLET PO SCH (07:28)
[2023-04-18] MEDS: 0.9 % SODIUM CHLORIDE 10 ML SYRINGE IV SCH ×3 (07:28→20:50)
[2023-04-18] MEDS: DOCUSATE SODIUM 100 MG CAPSULE PO SCH ×2 (08:35→21:47)
[2023-04-18] MEDS: SERTRALINE 100 MG TABLET PO SCH (08:35)
[2023-04-18] MEDS: LIOTHYRONINE 5 MCG TABLET PO SCH (08:35)
[2023-04-18] MEDS: MONTELUKAST 10 MG TABLET PO SCH (08:35)
[2023-04-18] MEDS: DILTIAZEM 120 MG CAP.XL.24H PO SCH (08:35)
[2023-04-18] MEDS: FLUTICASONE/SALMETEROL 250/50 INHALER #14 INH SCH ×2 (08:36→21:46)
[2023-04-18] MEDS: APIXABAN 5 MG TABLET PO SCH ×2 (09:43→20:53)
[2023-04-18] MEDS ORDERED: PNEUMOCOCCAL 23-VAL P-SAC VAC 0.5 ML SYRINGE IM ONE (10:00)
[2023-04-18] MEDS: METOPROLOL SUCCINATE 25 MG TAB.XL.24H PO SCH (20:53)
[2023-04-18] MEDS: SENNOSIDES 1 TABLET PO SCH (21:47)
[2023-04-19] MEDS: LEVOTHYROXINE 50 MCG TABLET PO SCH (07:30)
[2023-04-19] MEDS: POTASSIUM CHLORIDE 10 MEQ TABLET PO SCH (07:30)
[2023-04-19] MEDS: 0.9 % SODIUM CHLORIDE 10 ML SYRINGE IV SCH (07:30)
[2023-04-19] MEDS: DOCUSATE SODIUM 100 MG CAPSULE PO SCH (07:49)
[2023-04-19] MEDS: APIXABAN 5 MG TABLET PO SCH (08:53)
[2023-04-19] MEDS: MONTELUKAST 10 MG TABLET PO SCH (08:53)
[2023-04-19] MEDS: LIOTHYRONINE 5 MCG TABLET PO SCH (08:53)
[2023-04-19] MEDS: SERTRALINE 100 MG TABLET PO SCH (08:53)
[2023-04-19] MEDS: DILTIAZEM 120 MG CAP.XL.24H PO SCH (08:53)
[2023-04-19] MEDS ORDERED: LOSARTAN 50 MG TABLET PO SCH (09:00)
[2023-04-19] MEDS: FLUTICASONE/SALMETEROL 250/50 INHALER #14 INH SCH (09:04)
== END 2023-04-19 11:37 | DRG 683 ==
LOC: ED 06:23 → ICU 11:03
PROVIDERS: ADMIT Internal Medicine; ATTEND Internal Medicine